=== PATIENT | female | born 1945 | race Caucasian/White ===

== ENCOUNTER 2024-05-05 13:54 | Inpatient (IN) ==
--- OUTSIDE RECORDS SUMMARY | 2024-05-05 13:59 | External Medical Summary | Summary of Care ---
Author Name Unknown Organization [facility] Address [address] [place] [address] Phone [phone] Care Team Providers Care Glass Processing Worker Name Role Phone Ian Rae MD Primary Care Provider [phone] Reason for Visit * Reason Onset Date Comments Referral 01/30/202401/29, 01/31 02/01 Encounter Details Date Type Department Care Team (Late st Contact Info) Description 01/30/2024 Telephone [facility] [address] [facility] [place] [address] Ian Rae MD [facility] [place] [place] [address] Referral (01/29, 01/31 02/01) Allergies Active Allergy Reactions Criticality Noted Date Comments Prednisone Nausea/vomiting,Rash 11/05/2015 documented as of this encounter (statuses as of 04/30/2024) Medications Medication Sig Dispensed Refills Start Date End Date Status EQL B-6 100 MG PO TABS 1 TABLET DAILY 03/14/2011 Active B-12 500 MCG PO TABS one pill each day 03/14/2011 Active VITAMIN C 250 MG PO TABS None Entered Active VITAMIN D 1000 UNIT PO CAPS None Entered Active Polyethylene Glycol 3350 17 GM/SCOOP Oral Powder Take 17 g by mouth as needed for Constipation. Dissolve one heaping tablespoon in 8 ounces of water or juice. 1 Bottle 2 06/15/2015 Active Multiple Vitamins-Minerals (CENTRUM SILVER) CHEW Take by mouth. Active Lidocaine 4 % External Patch Place 1 Patch topically on the skin daily. Active Aspirin 81 MG Oral Tablet Delayed Release Take 1 Tablet by mouth 2 times a day. Active Mirtazapine 7.5 MG Oral Tablet (Remeron) Take 1 Tablet by mouth at bedtime. 30 Tablet 3 08/09/2023 Active Magnesium 250 MG Oral Tablet Take 1 Tablet by mouth in the morning. Active Triamcinolone Acetonide 0.1 % External Cream (Aristocort)Indicat ions:Skin neoplasm Apply twice daily to area on buttocks for 2 weeks 30 g 1 10/25/2023 Active traMADol HCl 50 MG Oral Tablet (Ultram)Indications :Chronic pain syndrome Take 1 Tablet by mouth every 8 hours as needed for Pain, Severe. 90 Tablet 12/25/2023 Active documented as of this encounter (statuses as of 04/30/2024) Active Problems Problem Noted Date Diagnosed Date Chronic pain syndrome 10/25/2023 Coronary artery calcification 10/25/2023 Pulmonary emphysema 10/25/2023 High serum high density lipoprotein (HDL) 2022 Dyslipidemia, goal LDL below 70 10/25/2023 Lung nodule seen on imaging study 08/18/2023 Diverticulosis of large intestine without hemorr palmer 07/22/2023 HTN, goal below 130/80 04/18/2023 Stage 3a chronic kidney disease 10/05/2020 Overview: Per CKD protocol - Per CKD protocol Tired 01/30/2020 Underweight 09/20/2018 Overview: 09/20/2018 weight stable x 1.5 yr Macrocytosis without anemia 09/20/2018 Overview: MCV(fL) Ange Dt/Tm Resulted Value Status 01/30/20 4:06P 01/30/20 103.1* FINAL 11/12/18 1:22P 11/12/18 100.0* FINAL RETICULOCYTE, % 0.80 - 1.90 % 1.21 09/26/18 9:09A 10/31/18 99.5* FINAL 03/31/17 8:48A 03/31/17 101.2* FINAL 08/13/12 9:00A 08/13/12 100.5* FINAL Fusion of spine, lumbar region 03/27/2017 Breast cancer screening 03/27/2017 Overview: 09/20/2018 confirms 03/27/2017 Declines mammos again does self exams Loss of weight 09/08/2016 History of colon polyps 06/15/2015 Overview: 03/18/2021 reminder from GI Done 05/2015 repeat 1 yr Advance directive on file 06/15/2015 Overview: 03/27/2017 Discussed advance directive . Has living will on chart 1 POA Zay 2 POA daughter Mahogany Given forms for POA 06/15/2015 pt selects no POA for med Sciatica 08/24/2012 Overview: MRI 01/22/13: multi-level DJD/DDD w/ nerve impingement - advised Pain Clinic - pt to discuss w/ History of hypertension 01/19/2012 Overview: 07/06/2020 blood pressure check Initial BP reading was 130/62. After resting BP was BP 120/62 | Pulse 76 Patient denied headache, pressure in head, dizziness, lightheadedness, chest discomfort, focal neurological symptoms, change in vision, nose bleeds. Remains off BP meds. Stopped Metoprolol at last appt 01/30/20 Will continue off meds Smokes cigarettes 01/19/2012 Overview: 09/18/2020 still smokes 6 cigs/day Screening for thyroid disorder 01/19/2012 Overview: 09/20/2018 TSH Results: TSH(uIU/mL) Ange Dt/Tm Resulted Value Status 03/31/17 8:48A 03/31/17 3.39 FINAL 08/13/12 9:00A 08/13/12 2.79 FINAL Screening for lipoid disorders 01/19/2012 Overview: Lipid Panel Results: LIPID PANEL WITH DIRECT LDL IF TG ABOVE 400 MG/DL Ange Dt/Tm Resulted Value Status HOURS FASTING (hours) 08/13/12 9:00A 08/13/12 12 F TRIGLYCERIDES (mg/dL) 08/13/12 9:00A 08/13/12 91 F CHOLESTEROL (mg/dL) 08/13/12 9:00A 08/13/12 218* F HDL (mg/dL) 08/13/12 9:00A 08/13/12 84 F CHOL/HDL RATIO ( ) 08/13/12 9:00A 08/13/12 2.6 F LDL (CALCULATED) (mg/dL) 08/13/12 9:00A 08/13/12 116 F LDL DIRECT(REFLEX) (mg/dL) 08/13/12 9:00A 08/13/12 F Value: NOT APPLICABLE Special screening for malignant neoplasms, colon 01/19/2012 No vaccination-pt refuse 01/19/2012 Overview: 01/19/2012 promises to reconsider documented as of this encounter (statuses as of 04/30/2024) Resolved Problems Problem Noted Date Diagnosed Date Resolved Date Kidney disease, chronic, sta ge III (GFR 30-59 ml/min) 02/03/2020 10/08/2020 Overview: Per CKD protocol Benign paroxysmal vertigo 03/27/2017 Overview: 09/20/2018 Few times a year About 1 min caused typically by head movement Abdominal pain, right lower quadrant 06/15/2015 01/30/2020 documented as of this encounter (statuses as of 04/30/2024) Immunizations Name Administration Dates Next Due Pneumococcal Polysaccharide PPV23 (Pneumovax) 11/23/2015(Deferred: Patient Refused) Seasonal Influenza, Split, I IV3, With Preserve, Inj 11/23/2015(Deferred: Patient Refused) Varicella Zoster Vaccine (Adult) 11/23/2015(Defe rred: Patient Refused) documented as of this encounter Social History Tobacco Use Types Packs/Day Years Used Date Smoking Tobacco: Every Day Cigarettes 0.3 44.4 Started: 11/27/1979 Smokeless Tobacco: Never Comments:4-5 cigarettes/day Alcohol Use Standard Drinks/Week Comments No 0 (1 standard drink = 0.6 oz pur e alcohol) PHQ-2 Answer Date Recorded PHQ Adult Total Score 0 12/09/2022 Hunger Vital Sign Answer Date Recorded Within the past 12 months, y ou worried that your food would run out before you got the money to buy more. Never true 12/09/19 23 Within the past 12 months, t he food you bought just didn't last and you didn't have money to get more. Never true 12/09/2022 Sex and Gender Information Value Date Recorded Sex Assigned at Female 01/30/2020 3:08 PM EST Gender Identity Female 01/30/2020 3:08 PM EST Sexual Orientation Straight 01/30/2020 3: 08 PM EST Job Start Date Occupation Industry Not on file Not on file Not on file documented as of this encounter Miscellaneous Notes * Telephone Encounter - Amy Shearer LPN - 02/02/2024 4:01 PM EST Call placed to pt's home number no answer and after several rings the ringing just stops. * Telephone Encounter - Yesenia Kilgore LPN - 02/01/2024 12:40 PM EST Na pt #, no a/m available * Telephone Encounter - Yesenia Kilgore LPN - 01/30/2024 2:48 PM EST Na pt home #, no a/m; need to check with pt if referral is for audiology for hearing loss * Telephone Encounter - Zulay Jarvis PHARM Tech - 01/30/2024 2:30 PM EST Patient is requesting a referral for her hearing aid. Please fax the referral to [phone] Zulay Vaca Aperture Mask Etcher [facility] [address] [address] 01/30/2024 2:32 PM documented in this encounter Plan of Treatment Upcoming Encounters Date Type Department Care Team (Late st Contact Info) Description 05/06/2024 2:40 PM EDT Office Visit [facility] [address] [facility] [place] [address] Ian Rae MD 21 [facility] [place] [address] Scheduled Procedures Name Priority Associated Diagnoses Date/Ti me COLONOSCOPY FLEXIBLE PROXIMAL DIAGNOSTIC Recall History of colon polyps Health Maintenance Due Date Last Done Comments DISCUSS TOBACCO CESSATION (REFER TO SMARTSET #1594) 1945 DXA Scan 1945 Pneumococcal Vaccine: 65+ Years (1 of 2 - PCV) 1952 Alpha-1 Antitrypsin 1964 DTaP,Tdap,and Td Vaccines (1 - Tdap) 1965 Zoster Vaccines (1 of 2) 1996 COVID-19 Vaccine (1 - 2022-24 season) 2023 *COPD SEVERITY VERIFIED BY PFT 10/27/2023 Depression Screening 12/09/2023 12/09/2022 GFR 12/10/2023 06/09/2023, 12/29, 12/09/2022, Additional history exists Albumin/Creatinine Ratio 01/16/2024 01/16/2023, 10/27 CKD HGB USE SMARTSET 86247 06/09/202406/09, 06/09/2023, 12/09/2022, Additional history exists CKD PHOS USE SMARTSET 39006 06/09/2024 06/09/2023 O2 ASSESSMENT COMPLETED IN PAST YEAR FOR COPD 07/12/2024 07/12/2023 Influenza Vaccine (FLU shot) (Season Ended) 2024 Colonoscopy 05/19/2026 05/19/2023, 04/28, 06/20/2016, Additional history exists GARDASIL-HPV IMMUNIZATION SERIES Aged Out No longer eligible based on patient's age to complete this topic Hepatitis B Aged Out No longer eligi ble based on patient's age to complete this topic MENINGOCOCCAL (MENACTRA/MENVEO) Aged Out No longer eligible based on patient's age to complete this topic documented as of this encounter Medical Devices Not on filedocumented as of this encounter Care Teams Glass Processing Worker Relationship Specialty Start Date End Date Ian Rae MD 21 [facility] [address] [place] [id number] PCP - General Family Medicine 04/17/23 documented as of this encounter"
--- OUTSIDE RECORDS SUMMARY | 2024-05-05 13:59 | External Medical Summary | Summary of Care ---
Author Name Unknown Organization [facility] Address [address] [facility] [address] Phone [phone] Care Team Providers Care Photoengraver Apprentice Name Role Phone Ian Rae MD Primary Care Provider [phone] Reason for Visit * Reason Onset Date Comments Medication Refill 04/19/2024 Encounter Details Date Type Department Care Team (Late st Contact Info) Description 04/19/[address] [facility] [address] [facility] [place] [address] Ian R[facility] MD [facility] [place] [address] Chronic pain syndrome Allergies Active Allergy Reactions Criticality Noted Date Comments Prednisone Nausea/vomiting,Rash 11/05/2015 documented as of this encounter (statuses as of 04/19/2024) Medications Medication Sig Dispensed Refills Start Date [...] juice. 1 Bottle 2 06/15/2015 Active Multiple Vitamins-Mineral s (CENTRUM SILVER) CHEW Take by mouth. Active [...] Active Triamcinolone Acetonide 0.1 % External Cream (Aristocort)Yoon cations:Skin neoplasm Apply twice daily to area on buttocks for 2 weeks 30 g 1 10/25/2023 Active traMADol HCl 50 MG Oral Tablet (Ultram)Indicati ons:Chronic pain syndrome Take 1 Tablet by mouth every 8 hours as needed for Pain, Severe. 90 Tablet 12/25/2023 Active DULoxetine HCl 30 MG Oral Capsule Delayed Release Particles (Cymbalta)Indica tions:Chronic pain syndrome Take 1 Capsule by mouth in the morning. Do not cut, crush or chew. 30 Capsule 5 04/19/2024 Active DULoxetine HCl 30 MG Oral Capsule Delayed Release Particles (Cymbalta)Indica tions:Chronic pain syndrome Take 1 Capsule by mouth in the morning. Do not cut, crush or chew. 30 Capsule 5 10/25/2023 04/19/2024 Discontinue d(Refill) documented as of this encounter (statuses as of 04/19/2024) Active Problems Problem Noted Date Diagnosed Date [...] 0.80 - 1.90 % 1.21 09/26/18 9:09A 09/26/18 99.5* FINAL 03/31/17 8:48A 03/31/17 101.2* FINAL [...] as of this encounter (statuses as of 04/19/2024) Resolved Problems Problem Noted Date Diagnosed Date Resolved Date Kidney disease, chronic, sta ge III (GFR 30-59 ml/min) 02/03/2020 10/08/2020 Overview: Per CKD protocol Benign paroxysmal vertigo 03/27/2017 Overview: 09/20/2018 Few times a year About 1 min caused typically by head movement Abdominal pain, right lower quadrant 06/15/2015 01/30/2020 documented as of this encounter (statuses as of 04/19/2024) Immunizations Name Administration Dates Next Due Pneumococcal [...] encounter Miscellaneous Notes * Telephone Encounter - Rosemary Koroma CRNP - 04/19/2024 10:59 AM EDTSigned Prescriptions: Disp Refills DULoxetine HCl 30 MG Oral Capsule Delayed *30 Cap*5 Sig: Take 1 Capsule by mouth in the morning. Do not cut, crush or chew. Authorizing Provider: ROSEMARY KOROMA * Telephone Encounter - Brayden Pérez LPN - 04/19/2024 7:46 AM EDT Did you pend patient's preferred pharmacy and medication before forwarding?yes Pharmacy: [facility] Pending Prescriptions: Disp Refills DULoxetine HCl 30 MG Oral Capsule Delayed*30 Cap*5 Sig: Take 1 Capsule by mouth in the morning. Do not cut, crush or chew. Last Visit: 10/25/2023 (in office), Visit date not found (telemedicine) Next Visit: 05/06/2024 If no future appointments scheduled, and last appointment is greater than a year ago, please schedule patient for a follow-up appointment Last date the medication was ordered: 10/25/2023 Is this request for a controlled substance?No Urine Drug Screen:No results found for this or any previous visit. Patient Phone Numbers Labs: Lab Results Component Value Date/Time CREAT 0.9 06/09/2023 04:23 PM CREAT 1.1 (H) 01/30/2020 04:06 PM POTASSIUM 4.4 06/09/2023 04:23 PM POTASSIUM 4.5 01/30/2020 04:06 PM TSH 2.18 12/09/2022 12:58 PM TSH 2.01 01/30/2020 04:06 PM LDLCALC 119 09/26/2018 09:09 AM LDLDIRECT NOT APPLICABLE 09/26/2018 09:09 AM ALT 22 06/09/2023 04:23 PM ALT 19 01/30/2020 04:06 PM documented in this encounter Plan of Treatment Upcoming Encounters Date Type Department Care Team (Late st Contact Info) Description 05/06/2024 2:40 PM EDT Office Visit [address] [place] [address] Ian Rae MD 21 [facility] [place] [id number] Scheduled Procedures Name Priority Associated Diagnoses Date/Ti me COLONOSCOPY FLEXIBLE PROXIMAL DIAGNOSTIC Recall History of colon polyps Health Maintenance Due Date Last Done Comments DISCUSS TOBACCO CESSATION (REFER TO SMARTSET #9232) 1945 DXA Scan 1945 Pneumococcal Vaccine: 65+ Years (1 of 2 - PCV) 1952 Alpha-1 Antitrypsin 1964 DTaP,Tdap,and Td Vaccines (1 - Tdap) 1965 Zoster Vaccines (1 of 2) 1996 COVID-19 Vaccine (1 - 2022- season) 2023 *COPD SEVERITY VERIFIED BY PFT 10/27/2023 Depression Screening 12/09/2023 12/09/2022 GFR 12/10/2023 06/09/2023, 12/29, 12/09/2022, Additional history exists Albumin/Creatinine Ratio 01/16/2024 01/16/2023, 10/27 CKD HGB USE SMARTSET 10364 06/09/202406/09, 06/09/2023, 12/09/2022, Additional history exists CKD PHOS USE SMARTSET 27506 06/09/2024 06/09/2023 O2 ASSESSMENT COMPLETED IN PAST [...] Not on filedocumented as of this encounter Visit Diagnoses Diagnosis Chronic pain syndrome documented in this encounter Care Teams Photoengraver Apprentice Relationship Specialty Start Date End Date Ian Rae MD [address] [place] [id number] PCP - General Family Medicine 04/17/23 documented as of this encounter"
--- OUTSIDE RECORDS SUMMARY | 2024-05-05 13:59 | External Medical Summary | Continuity of Care Document ---
Author Name Unknown Organization [facility] [address] [place] [address] [place] [phone] Care Team Providers Care Meat Loiner Name Role Phone Ian Rae Primary Care Physician [phone] [id number] Date(s): 04/25/24 - 04/25/24 [facility] [address] [facility] Pain Medicine [address], [address], [address] [place] [address] [phone] Encounter Diagnosis Post laminectomy syndrome(Discharge Diagnosis) - 04/25/24 Discharge Disposition: Home or Self Care Attending Physician: MD Eason Bunty J Referring Physician: MD Skip, Kyrie Mcrae Allergies, Adverse Reactions, Alerts Substance Criticality Severity Reaction Reaction Severity Status predniSONE 1 Vomiting Active 1hives Assessment and Plan Extracted from: Title:TeleHealth Visit Note Author:MD Yumi, Cullen Squires Date:04/25/24 Post laminectomy syndrome We discussed spinal cord stimulator,including the process ofa thoracic spine MRI as well as psychological evaluation if this is somethingthat she would like to pursue. I spoke with both the patient and her aboutthispotential therapeutic option. At this point, she is amenable to trying physical therapy. She has a specific facility in mindand will contact our office with the information. I have placed an order for this physical therapyreferraland it may be faxed to the facility of her choice once we havethe contact information for that facility. Additionally, she does have a sclerotic lesion in theiliac wing on the left sidewhich seems to correspond withwhere her pain is most severe. I am ordering a CT SPECT scan as the source of her pain isunclear. I am also providing a prescription for Celebrex 50 mg p.o. twice daily. Medications CeleBREX 50 mg oral capsule Start: 04/25/24 11:48:00 AM EDT, 1 cap, PO, bid, Disp# 60 cap, Refills: 2, Pharmacy: [facility] Start Date: 04/25/24 Status: Ordered DULoxetine 30 mg oral delayed release capsule Start: 11/16/23 3:32:00 PM EST, 30 each, Take 1 Capsule by mouth in the morning. Do not cut, crush or chew. Start Date: 11/16/23 Status: Ordered gabapentin 100 mg oral capsule Start: 02/19/24 9:49:00 AM EDT, 1 cap, PO, tid, Disp# 90 cap, Refills: 1, start nightly for three days, then twice a day for three days, then three times per day., Pharmacy: [facility] Start Date: 02/19/24 Stop Date: 04/19/24 Status: Ordered lidocaine 5% topical ointment Start: 11/11/22 3:01:00 PM EST, 1 appl, topical, tid, Disp# 50 g, apply with gloves to painful area. stop using if you experience a metallic taste or ringing in your ears., Indication: pain, Pharmacy: [facility] Start Date: 11/11/22 Stop Date: 12/11/22 Status: Ordered Lidocare Pain Relief Patch 4% topical film Start: 11/16/23 3:31:00 PM EST Start Date: 11/16/23 Status: Ordered lisinopril 10 mg oral tablet Start: 12/20/22 1:55:00 PM EST, 1 tab, PO, Daily Start Date: 12/20/22 Status: Ordered lisinopril 20 mg oral tablet Start: 01/02/23 10:57:00 AM EST, 20 mg =, PO, 12 Refill(s), Take 1 Tablet by mouth in the morning. Start Date: 01/02/23 Status: Ordered metoprolol succinate 25 mg oral tablet, extended release Start: 11/16/23 3:30:00 PM EST, 1 tab, PO, Daily Start Date: 11/16/23 Status: Ordered polyethylene glycol 3350 Start: 01/02/23 10:57:00 AM EST, 17 g =, PO, 3 Refill(s), Take 17 g by mouth as needed for Constipation. Dissolve one heaping tablespoon in 8 ounces of water or juice. Start Date: 01/02/23 Status: Ordered potassium iodide 65 mg oral tablet Start: 04/01/13 11:33:00 AM EDT, 2 tab, PO, Daily Start Date: 04/01/13 Status: Ordered traMADol 50 mg oral tablet Start: 11/16/23 3:30:00 PM EST, 1 tab, PO, q12h, PRN: as needed for pain Start Date: 11/16/23 Status: Ordered Vitamin B-12 100 mcg oral tablet Start: 04/01/13 11:32:00 AM EDT, 1 tab, PO, Daily Start Date: 04/01/13 Status: Ordered Vitamin B-50 oral tablet Start: 04/01/13 11:32:00 AM EDT, 1 tab, PO, Daily Start Date: 04/01/13 Status: Ordered Vitamin B12 1000 mcg oral tablet Start: 11/16/23 3:29:00 PM EST, 1 tab, PO, Daily Start Date: 11/16/23 Status: Ordered Vitamin B6 100 mg oral tablet Start: 11/16/23 3:29:00 PM EST, 1 tab, PO, Daily Start Date: 11/16/23 Status: Ordered Vitamin D3 2000 intl units oral tablet Start: 04/01/13 11:33:00 AM EDT, 1 tab, PO, Daily Start Date: 04/01/13 Status: Ordered vitamin E 400 intl units oral capsule Start: 04/01/13 11:33:00 AM EDT, 1 cap, PO, Daily Start Date: 04/01/13 Status: Ordered Problem List Condition Confirmation Course Effective Dates Status Health St atus Informant Back pain Confirmed Active Benign Essential Hypertension Confirmed Active Chronic arthritis Confirmed Active Depression Confirmed Active S/P laminectomy with spinal fusion Confirmed Active Hip pain Confirmed Active Tobacco abuse Confirmed Active Diagnosis Diagnosis Type Effective Dates Health Status Clinical Service Informant Post laminectomy syndrome Discharge Diagnosis 04/25/24 Non-Specified Procedures Procedure Date Related Diagnosis Body Site Status Epidural steroid injection 1 03/29/24 Completed Injection 2 12/20/22 Completed Cataract surgery Complete d L5 posterior spinal fusion w ith instrumentation, L2-3, L3-4, L4-5 Laminectomy with local autograft infuse and allograft 3 Completed Neck Completed 1caudal SUMMER 2TPI Social History Social History Type Response Smoking Status Current every day li ght smoker Sex Female Chronic Pain Outpt Note * MD Yumi, Lyle Squires: PERFORM Event Display: Chronic Pain Outpt Note Authored Date: [id number] TeleHealth Visit Note I have confirmed the patients name and date of . The patient has consented to this service,and I have advised the patient that this is a billable visit for which they may be subject to a copay. The patient initiated this visit after they were informed of the availability of TeleHealth for this medically necessary visit. I am located at my office. The patient is located at home. This visit was conducted via telephone, and was not related to a visit or procedure that occurred within the past 7 days, due to no internet connection availability. TOTAL TIME SPENT COMMUNICATING WITH THE PATIENT, IN MINUTES: Chief Complaint Low back pain History of Present Illness This is a [id number] with a history of L2-[id number] laminectomyand fusion with posterior spinal instrumentationwith local autograftinfuse and allograft. Shehaspersistent left-sided low back painover theiliac crest. She has undergone multiplepole caudal epidural steroidinjections without much reliefin her pain. Shehad seen Dr. Casiano of orthopedic spine surgery,but per her report, she is not a candidate foradditional surgical procedures at this time. Previously, we discussed spinal cord stimulationas well. She has not recentlyhad any physical therapy. Meloxicam was not helpfulin the past. She is taking gabapentin 100 mgp.o. 3 times daily. She also takes tramadol 50 mg1 tab p.o. every 12 as needed. Review of Systems As per HPI. Denies any bowel or bladder incontinence. She states she has some loose stools. Physical Exam This is a telephonic visit and so a physical examination could not be completed. Assessment/Plan Post laminectomy syndrome We discussed spinal cord stimulator,including the process ofa thoracic spine MRI as well as psychological evaluation if this is somethingthat she would like to pursue. I spoke with both the patient and her aboutthispotential therapeutic option. At this point, she is amenable to trying physical therapy. She has a specific facility in mindand will contact our office with the information. I have placed an order for this physical therapyreferraland it may be faxed tothe facility of her choice once we havethe contact information for that facility. Additionally,she does have a sclerotic lesion in theiliac wing on the left sidewhich seems to correspond withwhere her pain is most severe. I am ordering a CT SPECT scan as the source of her pain isunclear. I am also providing a prescription for Celebrex 50 mg p.o. twice daily. Problem List/Past Medical History Ongoing Back pain Benign Essential Hypertension Chronic arthritis Depression Hip pain S/P laminectomy with spinal fusion Tobacco abuse Procedure/Surgical History Epidural steroid injection| Service Date: 03/29/2024Injection| Service Date: 12/20/2022L5 posterior spinal fusion with instrumentation, L2-3, L3-4, L4-5 Laminectomy with local autograft infuse and allograftCataract surgeryNeck Medications celecoxib(CeleBREX 50 mg oral capsule), 50 mg= 1 cap, PO, bid, 2 refills cholecalciferol(Vitamin D3 2000 intl units oral tablet), 2000 Int_Unit= 1 tab, PO, Daily cyanocobalamin(Vitamin B12 1000 mcg oral tablet), 1000 mcg= 1 tab, PO, Daily cyanocobalamin(Vitamin B-12 100 mcg oral tablet), 100 mcg= 1 tab, PO, Daily DULoxetine(DULoxetine 30 mg oral delayed release capsule) gabapentin(gabapentin 100 mg oral capsule), 100 mg= 1 cap, PO, tid, 1 refills lidocaine topical(Lidocare Pain Relief Patch 4% topical film) lidocaine topical(lidocaine 5% topical ointment), 1 appl, topical, tid lisinopril(lisinopril 20 mg oral tablet), 20 mg, PO lisinopril(lisinopril 10 mg oral tablet), 10 mg= 1 tab, PO, Daily metoprolol(metoprolol succinate 25 mg oral tablet, extended release), 25 mg= 1 tab, PO, Daily multivitamin(Vitamin B-50 oral tablet), 1 tab, PO, Daily polyethylene glycol 3350, 17 g, PO potassium iodide(potassium iodide 65 mg oral tablet), 130 mg= 2 tab, PO, Daily pyridoxine(Vitamin B6 100 mg oral tablet), 100 mg= 1 tab, PO, Daily traMADol(traMADol 50 mg oral tablet), 50 mg= 1 tab, PO, q12h, PRN vitamin E(vitamin E 400 intl units oral capsule), 400 Int_Unit= 1 cap, PO, Daily Allergies predniSONEVomiting Social History Smoking Status Current every day light smoker Recommendations Health Maintenance Pending(in the next year) OverDue Adult Influenza Vaccine due05/26/23and every 1year Body Mass Index due11/12/23and every 366day Due Adult COVID-19 Vaccination due04/25/24Unknown Frequency Adult Social Determinants of Health Screening due04/25/24Unknown Frequency Adult Tdap/Td Vaccine due04/25/24Unknown Frequency Hepatitis C Screening due04/25/24One-time only Lipid Screening due04/25/24Unknown Frequency Medicare Annual Wellness Visit due04/25/24and every 1year Osteoporosis Screening due04/25/24One-time only Pneumococcal Vaccine Older Adults due04/25/24One-time only Shingles Vaccine due04/25/24One-time only Satisfied(in the past 1 year) There are no satisfied recommendations within the defined date range Electronic Signature on File CC: Ian Rae MD [facility] [id number] * Electronically Reviewed/Signed by: Lyle Eason MD, TOBIAS, FASA Author Signature Dt/Tm:04/25/2024 11:54 AM Data Entry Representative Skip Load Driver, Pain Medicine Fellowship Department of Anesthesiology & Perioperative Medicine [facility] Patient Care team information Care Team Personnel Name: KERI Casanova Dean E Position: Nurse Pract - Orthopaedic Surg Member Role: Lifetime Relationship Address: Address: [address] [address] [place] Name: MD Rae Kiran R Position: Referring DIRECT Member Role: Primary Care Provider Address: Address: [place] [address] [place] Name: MD Ely, Jaime S Position: Physician - Hem/Onc Member Role: Lifetime Relationship Address: Address: [address] [place] [address] [place] Care Team Related Persons Name: LORIN OBRIEN Address: home [address] [facility] [place] [phone]"
--- OUTSIDE RECORDS SUMMARY | 2024-05-05 13:59 | External Medical Summary | Continuity of Care Document ---
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 Do not cut, crush orchew. Start Date: 11/16/23 Status: Ordered gabapentin 100 mg oral capsule Start: 02/19/24 9:49:00 EDT, 1 cap, PO, tid, Disp# 90 cap, Refills: 1, start nightly for three days, then twice a day for three days, then three times per day., Pharmacy: [facility] Start Date: 02/19/24 Stop Date: 04/19/24 Status: Ordered lidocaine 5% topical ointment Start: 11/11/22 15:01:00 EST, 1 appl, topical, tid, Disp# 50 g, apply with gloves to painful area. stop using if you experience a metallic taste or ringing in your ears., Indication: pain, Pharmacy: [facility] Start Date: 11/11/22 Stop Date: 12/11/22 Status: Ordered Lidocare Pain Relief Patch 4% topical film Start: 11/16/23 15:31:00 EST Start Date: 11/16/23 Status: Ordered lisinopril 10 mg oral tablet Start: 12/20/22 13:55:00 EST, 1 tab, PO, Daily Start Date: 12/20/22 Status: Ordered lisinopril 20 mg oral tablet Start: 01/02/23 10:57:00 EST, 20 mg =, PO, 12 Refill(s), Take 1 Tablet by mouth in the morning. Start Date: 01/02/23 Status: Ordered metoprolol succinate 25 mg oral tablet, extended release Start: 11/16/23 15:30:00 EST, 1 tab, PO, Daily Start Date: 11/16/23 Status: Ordered polyethylene glycol 3350 Start: 01/02/23 10:57:00 EST, 17 g =, PO, 3 Refill(s), Take 17 g by mouth as needed for Constipation. Dissolve one heaping tablespoon in 8 ounces of water or juice. Start Date: 01/02/23 Status: Ordered potassium iodide 65 mg oral tablet Start: 04/01/13 11:33:00, 2 tab, PO, Daily Start Date: 04/01/13 Status: Ordered traMADol 50 mg oral tablet Start: 11/16/23 15:30:00 EST, 1 tab, PO, q12h, PRN: as needed for pain Start Date: 11/16/23 Status: Ordered Vitamin B-12 100 mcg oral tablet Start: 04/01/13 11:32:00, 1 tab, PO, Daily Start Date: 04/01/13 Status: Ordered Vitamin B-50 oral tablet Start: 04/01/13 11:32:00, 1 tab, PO, Daily Start Date: 04/01/13 Status: Ordered Vitamin B12 1000 mcg oral tablet Start: 11/16/23 15:29:00 EST, 1 tab, PO, Daily Start Date: 11/16/23 Status: Ordered Vitamin B6 100 mg oral tablet Start: 11/16/23 15:29:00 EST, 1 tab, PO, Daily Start Date: 11/16/23 Status: Ordered Vitamin D3 2000 intl units oral tablet Start: 04/01/13 11:33:00, 1 tab, PO, Daily Start Date: 04/01/13 Status: Ordered vitamin E 400 intl units oral capsule Start: 04/01/13 11:33:00, 1 cap, PO, Daily Start Date: 04/01/13 Status: Ordered Mental Status 03/29/24 Barriers to Learning one year None evide nt Mandatory Health Literacy Documentation Yes Health Literacy Communication Barriers N ever Primary Language Yi Problem List Condition Confirmation Course Effective Dates Status Health St atus Informant Back pain Confirmed Active Benign Essential Hypertension Confirmed Active Chronic arthritis Confirmed Active Depression Confirmed Active S/P laminectomy with spinal fusion Confirmed Active Hip pain Confirmed Active Tobacco abuse Confirmed Active Diagnosis Diagnosis Type Effective Dates Health Status Clinical Service Informant Lumbosacral radiculopathy Discharge Diagnosis 03/29/24 Failed back surgical syndrome Discharge Diagnosis 03/29/24 Procedures Procedure Date Related Diagnosis Body Site Status Epidural steroid injection 1 03/29/24 Completed Injection 2 12/20/22 Completed Cataract surgery Complete d L5 posterior spinal fusion w ith instrumentation, L2-3, L3-4, L4-5 Laminectomy with local autograft infuse and allograft 3 Completed Neck Completed 1caudal SUMMER 2TPI 37 Vital Signs Most recent to oldest [Reference Range]: 1 Temperature [36.5-37.9 DegC] 37.2 DegC (03/29/24 2:13 PM) Heart Rate 81 bpm (03/29/24 2:13 PM) Respiratory Rate 12 br/min (03/29/24 2:13 PM) Blood Pressure 150/91mmHg (03/29/24 2:13 PM) Cuff Pulse Pressure 59 mmHg (03/29/24 2:13 PM) Social History Social History Type Response Smoking Status Current every day [facility] smoker Sex Female .Outpt Proc * MD Yumi, Lyle Squires: PERFORM Event Display: .Outpt Proc Authored Date: [id number] OUTPATIENT PROCEDURE Name: TESSA WALLIS Patient Number: [id number] : 1945 Date of Service: 03/29/2024 Caudal Epidural Steroid Injection with Catheter ATTENDING: Lyle Eason MD MAINTENANCE PERSON: Kentrell Nuñez MD, Ph.D. PREOPERATIVE DIAGNOSIS: Lumbosacral radiculopathy POSTOPERATIVE DIAGNOSIS: Lumbosacral radiculopathy PROCEDURE PERFORMED: Caudal epidural injection under fluoroscopic guidance. ANESTHESIA: Local Anesthesia with 1% Lidocaine MONITORS: Automatic blood pressure cuff, pulse oximetry INDICATIONS: We had the pleasure of seeing Tessa Wallis in the pain management clinic at [facility] today. The patient has a history of lumbosacral radiculopathy. The patient is here today for a caudal epidural steroid injection. Medication List Active Medications Ordered cholecalciferol: 1 tab, PO, Daily. cyanocobalamin: 1 tab, PO, Daily. cyanocobalamin: 1 tab, PO, Daily. DULoxetine: 30 each, Take 1 Capsule by mouth in the morning. Do not cut, crush or chew.. gabapentin: 1 cap, PO, tid, for 30 day, start nightly for three days, then twice a day for three days, then three times per day., 90 cap, 1 Refill(s). lidocaine topical: 1 appl, topical, tid, for 30 day, apply with gloves to painful area. stop using if you experience a metallic taste or ringing in your ears., 50 g. lidocaine topical: Start: 11/16/23 15:31:00 EST. lisinopril: 1 tab, PO, Daily. lisinopril: 20 mg, PO, 12 Refill(s), Take 1 Tablet by mouth in the morning.. metoprolol: 1 tab, PO, Daily. multivitamin: 1 tab, PO, Daily. polyethylene glycol 3350: 17 g, PO, 3 Refill(s), Take 17 g by mouth as needed for Constipation. Dissolve one heaping tablespoon in 8 ounces of water or juice.. potassium iodide: 2 tab, PO, Daily. pyridoxine: 1 tab, PO, Daily. traMADol: 1 tab, PO, q12h, PRN: as needed for pain. vitamin E: 1 cap, PO, Daily. Medications Inactivated in the Last 72 Hours No medications found. Allergies (1) Active Reaction predniSONE Vomiting REVIEW OF SYSTEMS: Negative for fever, chills, chest pain, SOB, bleeding abnormalities, nausea, vomiting, diarrhea, worsening edema, or new rashes. FOCUSED PHYSICAL EXAMINATION: The patient is awake, alert, oriented, and is in no acute distress. Vital signs are stable. The patient is afebrile. The rest of the PE is essentially unchanged from thepatients recent visit to our office. We explained the procedure to the patient, including the risks, benefits and alternatives to the procedure. The patient verbalized understanding and was willing to proceed. PROCEDURE IN DETAIL: An informed consent was obtained. The patient was taken to the procedure room and was positively identified by the staff and the attending physician. The patient was positioned prone on the procedure bed. Vital signs were monitored as above and remained stable throughout the procedure. The skin over the sacral hiatus was prepped and draped in a standard sterile fashion using chlorhexidine. A surgical pause (time-out) was performed and was agreed upon by the members of the team. Fluoroscopy was used to identify the sacral hiatus. The skin and subcutaneous tissues were anesthetized using 1% lidocaine and 25-gauge 1-1/2 inch needle. An 18-gauge 5 inch epidural needle was inserted and advanced into the sacral hiatus under fluoroscopic guidance. After the needle passed through the sacrococcygeal ligament, the hub of the needle was lowered and the needle was advanced until it was thought to be in the caudal epidural space. Unfotunately, contrast injection revealed the needle tip to be outside the caudal epidural space. The needle was withdrawn slightly, the redirectedinto the caudal epidural space. Omnipque 240 mg/mL was injected, but visualization was challenging due to patient body habitus and the decision was made to introduce an epidural catheter. A 21-gauge,12-inch catheter was then inserted and advanced to the S1/S2 level. After negative aspiration for blood and CSF, radiopaque dye, 240 mg/mL, was slowly injected. This demonstrated excellent spread in the epidural space with some spread to the nerve roots. After additional negative aspiration, 10 mg of dexamethasone mixed with 1 mL of 1% lidocaine and 8 mL of PF NS were injected into the epidural space. All needles were withdrawn. The patient tolerated the procedure well. COMPLICATIONS: None. DISPOSITION: 1. The patient will be discharged home when discharge criteria are met. 2. The patient will return to the pain clinic in 2 months or sooner if needed. 3. The patient was provided contact information to call regarding any concerning symptoms or questions. I was present for and supervised the entire procedure. - Lyle Eason MD Electronic Signature on File Electronically Reviewed/Signed by: Lyle Eason MD, TOBIAS, JEOVANY Author Signature Dt/Tm:03/29/2024 03:27 PM Upholsterer Outside Rehabilitation Tech, Pain Medicine Fellowship Department of Anesthesiology & Perioperative Medicine [facility] Patient Care team information Care Team Personnel Name: KERI Casanova, Jose E Position: Nurse Pract - Orthopaedic Surg Member Role: Lifetime Relationship Address: Address: [address] [place] [phone] [place] Name: MD Butch, Ian Toro Position: Referring DIRECT Member Role: Primary Care Provider Address: Address: [address] [place] [address] [place] Name: MD Ely, Jaime S Position: Physician - Hem/Onc Member Role: Lifetime Relationship Address: Address: [address] [place] [address] Care Team Related Persons Name: LORIN OBRIEN Address: home [address] [place] [phone]
--- OUTSIDE RECORDS SUMMARY | 2024-05-05 14:00 | External Medical Summary | Summary of Care ---
Author Name Unknown Organization [facility] Address [address] [place] [address] Phone [phone] Care Team Providers Care Composite Layup Worker Name Role Phone Ian Rae MD Primary Care Provider [phone] [phone] Reason for Visit * Reason Onset Date Comments Health Maintenance 12/15/2023 Encounter Details Date Type Department Care Team (Late st Contact Info) Description 12/15/2023 Telephone [facility] [place] [address] Ian Rae MD [facility] [place] [address] Health Maintenance Allergies Active Allergy Reactions Criticality Noted Date Comments Prednisone Nausea/vomiting,Rash 11/05/2015 documented as of this encounter (statuses as of 12/15/2023) Medications Medication Sig Dispensed Refills Start Date End Date Status EQL B-6 100 MG PO TABS 1 TABLET DAILY 0 03/14/2011 Active B-12 500 MCG PO TABS one pill each day 0 03/14/2011 Active VITAMIN C 250 MG PO TABS None Entered 0 Active VITAMIN D 1000 UNIT PO CAPS None Entered 0 Active Polyethylene Glycol 3350 17 GM/SCOOP Oral Powder Take 17 g by mouth as needed for Constipation. Dissolve one heaping tablespoon in 8 ounces of water or juice. 1 Bottle 2 06/15/2015 Active Multiple Vitamins-Minerals (CENTRUM SILVER) CHEW Take by mouth. 0 Active Lidocaine 4 % External Patch Place 1 Patch topically on the skin daily. 0 Active Aspirin 81 MG Oral Tablet Delayed Release Take 1 Tablet by mouth 2 times a day. 0 Active Mirtazapine 7.5 MG Oral Tablet (Remeron) Take 1 Tablet by mouth at bedtime. 30 Tablet 3 08/09/2023 Active Magnesium 250 MG Oral Tablet Take 1 Tablet by mouth in the morning. 0 Active Triamcinolone Acetonide 0.1 % External Cream (Aristocort)Indicat ions:Skin neoplasm Apply twice daily to area on buttocks for 2 weeks 30 g 1 10/25/2023 Active DULoxetine HCl 30 MG Oral Capsule Delayed Release Particles (Cymbalta)Indicatio ns:Chronic pain syndrome Take 1 Capsule by mouth in the morning. Do not cut, crush or chew. 30 Capsule 5 10/25/2023 Active traMADol HCl 50 MG Oral Tablet (Ultram)Indications :Chronic pain syndrome Take 1 Tablet by mouth every 12 hours as needed for Pain, Severe. 15 Tablet 0 12/01/2023 Active documented as of this encounter (statuses as of 12/15/2023) Active Problems Problem Noted Date Diagnosed Date [...] as of this encounter (statuses as of 12/15/2023) Resolved Problems Problem Noted Date Diagnosed Date Resolved Date Kidney disease, chronic, sta ge III (GFR 30-59 ml/min) 02/03/2020 10/08/2020 Overview: Per CKD protocol Benign paroxysmal vertigo 03/27/2017 Overview: 09/20/2018 Few times a year About 1 min caused typically by head movement Abdominal pain, right lower quadrant 06/15/2015 01/30/2020 documented as of this encounter (statuses as of 12/15/2023) Immunizations Name Administration Dates Next Due Pneumococcal Polysaccharide PPV23 (Pneumovax) 11/23/2015(Deferred: Patient Refused) Seasonal Influenza, Split, I IV3, With Preserve, Inj 11/23/2015(Deferred: Patient Refused) Varicella Zoster Vaccine (Adult) 11/23/2015(Defe rred: Patient Refused) documented as of this encounter Social History Tobacco Use Types Packs/Day Years Used Date Smoking Tobacco: Every Day Cigarettes 0.3 38 Started: 11/27/1979 Smokeless Tobacco: Never Comments:4-5 cigarettes/day [...] encounter Miscellaneous Notes * Telephone Encounter - Erica Brian LPN - 12/15/2023 2:16 PM EST Care Gaps Comprehensive Care Outreach Last Office/Telemedicine Visit: 10/25/2023 (in office), Visit date not found (telemedicine) Next Office Visit: 05/06/2024 Hemoglobin AIC Results: No results found for: "HEMOGLOBIN A1C" Reviewed Health Maintenance below: Health Maintenance Topic Date Due DXA Scan Never done Zoster Vaccines (1 of 2) Never done Influenza Vaccine (FLU shot) (1) Never done *COPD SEVERITY VERIFIED BY PFT Never done GFR 12/10/2023 Albumin/Creatinine Ratio 01/16/2024 CKD HGB USE SMARTSET 79561 06/09/2024 CKD PHOS USE SMARTSET 47442 06/09/2024 Care Gap Outreach Action Taken: Spoke to patient Declined all other HM/AWV documented in this encounter Plan of Treatment Upcoming Encounters Date Type Department Care Team (Late st Contact Info) Description 05/06/2024 2:40 PM EDT Office Visit [facility] [address] [address] Ian Rae MD [address] [id number] Scheduled Procedures Name Priority Associated Diagnoses Date/Ti me COLONOSCOPY FLEXIBLE PROXIMAL DIAGNOSTIC Recall History of colon polyps Health Maintenance Due Date Last Done Comments DISCUSS TOBACCO CESSATION (REFER TO SMARTSET #7105) 1945 DXA Scan 1945 COVID-19 Vaccine (#1) 06/23/1946 Pneumococcal Vaccine: 65+ Years (1 - PCV) 1952 Alpha-1 Antitrypsin 1964 DTaP,Tdap,and Td Vaccines (1 - Tdap) 1965 Zoster Vaccines (1 of 2) 1996 Influenza Vaccine (FLU shot) (#1) 2023 *COPD SEVERITY VERIFIED BY PFT 10/27/2023 Depression Screening 12/09/2023 12/09/2022 GFR 12/10/2023 06/09/2023, 12/29, 12/09/2022, Additional history exists Albumin/Creatinine Ratio 01/16/2024 01/16/2023, 10/27 CKD HGB USE SMARTSET 84396 06/09/202406/09, 06/09/2023, 12/09/2022, Additional history exists CKD PHOS USE SMARTSET 97819 06/09/2024 06/09/2023 O2 ASSESSMENT COMPLETED IN PAST YEAR FOR COPD 07/12/2024 07/12/2023 COLONOSCOPY-EVERY 3 YRS AGES 18-100 05/19/2026 05/19/2023, 05/19/2023, 06/20/2016, Additional history exists GARDASIL-HPV IMMUNIZATION SERIES [...] filedocumented as of this encounter Care Teams Composite Layup Worker Relationship Specialty Start Date End Date Ian Rae MD [address] [place] [phone] PCP - General Family Medicine 04/17/23 documented as of this encounter
--- OUTSIDE RECORDS SUMMARY | 2024-05-05 14:00 | External Medical Summary | Continuity of Care Document ---
Author Name Unknown Organization [facility] [address] [place] [address] [place] [phone] Care Team Providers Care Bench Assembler Name Role Phone Ian Rae Primary Care Physician [phone] Encounter [facility] [id number] Date(s): 02/15/24 - 02/15/24 [facility] [address] [facility] Pain Medicine [address], [address], [address] [place] [address] [phone] Encounter Diagnosis Lumbar radiculopathy(Discharge Diagnosis) - 02/15/24 Postlaminectomy syndrome, lumbar(Discharge Diagnosis) - 02/15/24 Discharge Disposition: Home or Self Care Attending Physician: MD Yumi, Lyle Squires Referring Physician: MD Skip, Kyrie Mcrea Allergies, Adverse Reactions, Alerts Substance Reaction Severity Status predniSONE Vomiting Active Medications DULoxetine 30 mg oral delayed release capsule Start: 11/16/23 15:32:00 EST, 30 each, Take 1 Capsule by mouth in the morning. Do not cut, crush orchew. Start Date: 11/16/23 Status: Ordered lidocaine 5% topical ointment Start: 11/11/22 15:01:00 EST, 1 appl, topical, tid, Disp# 50 g, apply with gloves to painful area. stop using if you experience a metallic taste or ringing in your ears., Indication: pain, Pharmacy: [facility] Start Date: 11/11/22 Stop Date: 12/11/22 Status: [...] Effective Dates Health Status Clinical Service Informant Postlaminectomy syndrome, lumbar Discharge Diagnosis 02/15/24 Non-Specified Lumbar radiculopathy Discharge Diagnosis 02/15/24 Non-Specified Procedures Procedure Date Related Diagnosis Body Site Status Injection 1 12/20/22 Completed Cataract surgery Complete d L5 posterior spinal fusion w ith instrumentation, L2-3, L3-4, L4-5 Laminectomy with local autograft infuse and allograft 2 Completed Neck Completed 1TPI Social History Social History Type Response Smoking Status Current every day li ght smoker Sex Female Patient Care team information Care Team Personnel Name: EKRI Casanova, Jose Guy Position: Nurse Pract - Orthopaedic Surg Member Role: Lifetime Relationship Address: Address: [address] [place] [address] [place] Name: MD Butch, Ian Toro Position: Referring DIRECT Member Role: Primary Care Provider Address: Address: [address] [place] [address] [place] Name: MD Ely, Jaime Navarro Position: Physician - Hem/Onc Member Role: Lifetime Relationship Address: Address: [address] [place] [address] [place] Care Team Related Persons Name: LORIN OBRIEN Address: home [address] [place], [place] [id number]
--- OUTSIDE RECORDS SUMMARY | 2024-05-05 14:00 | External Medical Summary | Summary of Care ---
Author Name Unknown Organization [facility] Address [address] [facility] [place] [address] Phone [phone] Care Team Providers Care Credit Counselor Name Role Phone Ilsa Rae MD Primary Care Provider [phone] Reason for Referral * Medication Prior Authorization - Closed Specialty Diagnoses / Procedures Referred By Contcharity t Referred To Contact Diagnoses Chronic pain syndrome Ilsa Rae MD [address] [facility] [place] [address] Referral ID Status Reason Start Date Expiration Date Visits Re quested Visits Authorized [id number] Closed 999 999 Reason for Visit * Reason Onset Date Comments Med Request 12/01/202312/04, 12/06, 12/11 Encounter Details Date Type Department Care Team (Late st Contact Info) Description 12/01/[address] [place] [address] Ilsa Rae MD [facility] [place] [address] Med Request (12/04, 12/06, 12/11) Allergies Active Allergy Reactions Criticality Noted Date Comments Prednisone Nausea/vomiting,Rash 11/05/2015 documented as of this encounter (statuses as of 12/11/2023) Medications Medication Sig Dispensed Refills Start Date [...] as of this encounter (statuses as of 12/11/2023) Active Problems Problem Noted Date Diagnosed Date [...] as of this encounter (statuses as of 12/11/2023) Resolved Problems Problem Noted Date Diagnosed Date Resolved Date Kidney disease, chronic, sta ge III (GFR 30-59 ml/min) 02/03/2020 10/08/2020 Overview: Per CKD protocol Benign paroxysmal vertigo 03/27/2017 Overview: 09/20/2018 Few times a year About 1 min caused typically by head movement Abdominal pain, right lower quadrant 06/15/2015 01/30/2020 documented as of this encounter (statuses as of 12/11/2023) Immunizations Name Administration Dates Next Due Pneumococcal [...] encounter Miscellaneous Notes * Telephone Encounter - Minnie Currie MED ASSIST - 12/11/2023 3:59 PM EST Left generic message on answering machine asking patient to return our call to [phone]. Letter sent * Telephone Encounter - Jazzy Hernandez LPN - 12/06/2023 8:52 AM EST No answer at pt's number. Phone rang busy x 2. When patient returns call please transfer to [phone] in regards to below message from Dr. Rae. * Telephone Encounter - Radha Aguilar LPN - 12/04/2023 11:38 AM EST Attempted to reach pt x 2, received busy signal both times. * Addendum Note - Ilsa Rae MD - 12/01/2023 7:14 PM ESTAddended by: ILSA RAE on: 12/01/2023 07:14 PM Modules accepted: Orders * Telephone Encounter - Ilsa Rae MD - 12/01/2023 7:11 PM EST Will call in one time refill on Tramadol. Since it is a controlled substance, will need to have an BART prior to prescribing it fpc. * Telephone Encounter - Janeth Taylor NRThor - 12/01/2023 5:05 PM EST Pt is completely out of medicine and pt was told by [facility] to go to [place]. Pt was seen at [facility] was told they would not operate and therefore would not give pt any medicine. I told pt's , who took over the call, he should try calling [facility] to get this refill. I did ask if they had tried ibuprofen or tylenol and he said they have and it really doesn't work. He also stated that the Tramadol only takes the edge off of the pain but at least gives some relief. He asked again if it would be possible to get some med or if you could suggest some other med that might help.He is concerned because this is the weekend. * Telephone Encounter - Ilsa Rae MD - 12/01/2023 4:44 PM EST Per PDMP, this was prescribed by Ortho at [facility] (Dr. Esparza). Should reach out to them for refills. * Telephone Encounter - Marci Rinaldi RN - 12/01/2023 2:23 PM EST Provider to address: Medication listed as discontinue per patient preference. Please advise. Reason for Call: Med Request (Tramadol) Contact: Telephone Call Contact Type: Medication Outcome: see above. Face to face time spent with Patient (minutes): 0 Total Time including non face to face (minutes): 10 * Telephone Encounter - Lily Mariano OSA - 12/01/2023 1:16 PM EST A medication prescription was requested for this patient. Name of Requestor: Tessa Marquis Medication: Tramadol Reason for request: Refill Current dose (if applicable): 50 mg 1 every 12 hrs Dose requested (if applicable/Mail Order should be 90 day Supply): Current quantity (if applicable): Quantity requested (if applicable): Preferred pharmacy: [facility] documented in this encounter Plan of Treatment Upcoming Encounters Date Type Department Care Team (Late st Contact Info) Description 05/06/2024 2:40 PM EDT Office Visit [facility] [address] [place] [address] Ilsa Rae MD [address] [place] [id number] Scheduled Procedures Name Priority Associated Diagnoses Date/Ti me COLONOSCOPY FLEXIBLE PROXIMAL DIAGNOSTIC Recall History of colon polyps Health Maintenance Due Date Last Done Comments DISCUSS TOBACCO CESSATION (REFER TO SMARTSET #7211) 1945 DXA Scan 1946 COVID-19 Vaccine (#1) [...] 01/16/2024 01/16/2023, 10/27 CKD HGB USE SMARTSET 54679 06/09/202406/09, 06/09/2023, 12/09/2022, Additional history exists CKD PHOS USE SMARTSET 34231 06/09/2024 06/09/2023 O2 ASSESSMENT COMPLETED IN PAST [...] this encounter Visit Diagnoses Diagnosis Chronic pain syndrome- Primary documented in this encounter Care Teams Credit Counselor Relationship Specialty Start Date End Date Ilsa Rae MD [address] [place] [id number] PCP - General Family Medicine 04/17/23 documented as of this encounter"
--- OUTSIDE RECORDS SUMMARY | 2024-05-05 14:00 | External Medical Summary | Summary of Care ---
Author Name Unknown Organization [facility] Address [address] [place] [address] Phone [phone] Care Team Providers Care Trust Clerk Name Role Phone Ian Rae MD Primary Care Provider [phone] Encounter Details Date Type Department Care Team (Late st Contact Info) Description 02/06/2024 Result Scan Unspecified Department <No scans attached> Allergies Active Allergy Reactions Criticality Noted Date Comments Prednisone Nausea/vomiting,Rash 11/05/2015 documented as of this encounter (statuses as of 02/19/2024) Medications Medication Sig Dispensed Refills Start Date [...] as needed for Pain, Severe. 90 Tablet 0 12/25/2023 Active documented as of this encounter (statuses as of 02/19/2024) Active Problems Problem Noted Date Diagnosed Date [...] as of this encounter (statuses as of 02/19/2024) Resolved Problems Problem Noted Date Diagnosed Date Resolved Date Kidney disease, chronic, sta ge III (GFR 30-59 ml/min) 02/03/2020 10/08/2020 Overview: Per CKD protocol Benign paroxysmal vertigo 03/27/2017 Overview: 09/20/2018 Few times a year About 1 min caused typically by head movement Abdominal pain, right lower quadrant 06/15/2015 01/30/2020 documented as of this encounter (statuses as of 02/19/2024) Immunizations Name Administration Dates Next Due Pneumococcal Polysaccharide PPV23 (Pneumovax) 11/23/2015(Deferred: Patient Refused) Seasonal Influenza, Split, I IV3, With Preserve, Inj 11/23/2015(Deferred: Patient Refused) Varicella Zoster Vaccine (Adult) 11/23/2015(Defe rred: Patient Refused) documented as of this encounter Social History Tobacco Use Types Packs/Day Years Used Date Smoking Tobacco: Every Day Cigarettes 0.3 44.2 Started: 11/27/1979 Smokeless Tobacco: Never Comments:4-5 cigarettes/day [...] on file documented as of this encounter Plan of Treatment Upcoming Encounters Date Type Department Care Team (Late st Contact Info) Description 05/06/2024 2:40 PM EDT Office Visit [facility] [address] [place] [address] [phone] Ian Rae MD [address] [phone] Scheduled Procedures Name Priority Associated Diagnoses Date/Ti me COLONOSCOPY FLEXIBLE PROXIMAL DIAGNOSTIC Recall History of colon polyps Health Maintenance Due Date Last Done Comments DISCUSS TOBACCO CESSATION (REFER TO SMARTSET #3291) 1945 DXA Scan 1945 Pneumococcal Vaccine: 65+ Years (1 of 2 - PCV) 1952 Alpha-1 Antitrypsin 1964 DTaP,Tdap,and Td Vaccines (1 - Tdap) 1965 Zoster Vaccines (1 of 2) 1996 COVID-19 Vaccine (1 - 2022-24 season) 2023 Influenza Vaccine (FLU shot) (#1) 2023 *COPD SEVERITY VERIFIED BY PFT 10/27/2023 Depression Screening 12/09/2023 12/09/2022 GFR 12/10/2023 06/09/2023, 12/29, 12/09/2022, Additional history exists Albumin/Creatinine Ratio 01/16/2024 01/16/2023, 10/27 CKD HGB USE SMARTSET 14127 06/09/202406/09, 06/09/2023, 12/09/2022, Additional history exists CKD PHOS USE SMARTSET 08483 06/09/2024 06/09/2023 O2 ASSESSMENT COMPLETED IN PAST [...] Not on filedocumented as of this encounter Procedures Procedure Name Priority Date/Time Associated Diagnosis Comments PROCEDURE SCANNED RESULT 02/06/2024 documented in this encounter Results * PROCEDURE SCANNED RESULT (02/06/2024) 02/06/2024 No Physician Data Unknown SURGERY documented in this encounter Care Teams Trust Clerk Relationship Specialty Start Date End Date Ian Rae MD [address] [place] [address] PCP - General Family Medicine 04/17/23 documented as of this encounter"
--- OUTSIDE RECORDS SUMMARY | 2024-05-05 14:00 | External Medical Summary | Summary of Care ---
Author Name Unknown Organization [facility] Address [address] [facility] [place] [address] Phone [phone] Care Team Providers Care Janitor Caretaker Name Role Phone Ilsa Rae MD Primary Care Provider [phone] Reason for Referral * Medication Prior Authorization - Closed Specialty Diagnoses / Procedures Referred By Contcharity t Referred To Contact Diagnoses Chronic pain syndrome Ilsa Rae MD 21 [facility] [place] [address] Referral ID Status Reason Start Date Expiration Date Visits Re quested Visits Authorized [id number] Closed 999 999 Reason for Visit * Reason Onset Date Comments Med Request 12/01/202312/04, 12/06, 12/11 Encounter Details Date Type Department Care Team (Late st Contact Info) Description 12/01/[address] [place] [address] Ilsa Rae MD 21 [facility] [place] [address] Med Request (12/04, 12/06, 12/11) Allergies Active Allergy Reactions Criticality Noted Date Comments Prednisone Nausea/vomiting,Rash 11/05/2015 documented as of this encounter (statuses as of 12/12/2023) Medications Medication Sig Dispensed Refills Start Date [...] as of this encounter (statuses as of 12/12/2023) Active Problems Problem Noted Date Diagnosed Date [...] as of this encounter (statuses as of 12/12/2023) Resolved Problems Problem Noted Date Diagnosed Date Resolved Date Kidney disease, chronic, sta ge III (GFR 30-59 ml/min) 02/03/2020 10/08/2020 Overview: Per CKD protocol Benign paroxysmal vertigo 03/27/2017 Overview: 09/20/2018 Few times a year About 1 min caused typically by head movement Abdominal pain, right lower quadrant 06/15/2015 01/30/2020 documented as of this encounter (statuses as of 12/12/2023) Immunizations Name Administration Dates Next Due Pneumococcal [...] encounter Miscellaneous Notes * Telephone Encounter - Genoveva Borges LPN - 12/12/2023 8:43 AM EST Patient aware and verbalized understanding, will comply. [place] scheduled 1/18 to complete BART. * Telephone Encounter - Minnie Currie MED ASSIST - 12/11/2023 3:59 PM EST Left generic message on answering machine asking patient to return our call to [phone]. Letter sent * Telephone Encounter - Jazzy Hernandez LPN - 12/06/2023 8:52 AM EST No answer at pt's number. Phone rang busy x 2. When patient returns call please transfer to [phone] in regards to below message from Dr. [...] have an BART prior to prescribing it mcfp. * Telephone Encounter - [facility] - 12/01/2023 5:05 PM EST Pt is completely out of medicine and pt was told by Ortho [facility] to go to [place]. [facility] therefore would not give pt any medicine. I told pt's , who took over the call, he should try calling [facility] to get this refill. I did ask [...] PDMP, this was prescribed by Ortho at [facility] (Dr. Esparza). Should reach out to [...] requested for this patient. Name of Requestor: Tessara Marquis Medication: Tramadol Reason for request: Refill Current dose (if applicable): 50 mg 1 every 12 hrs Dose requested (if applicable/Mail Order should be 90 day Supply): Current quantity (if applicable): Quantity requested (if applicable): Preferred pharmacy: [facility] documented in this encounter Plan of Treatment Upcoming Encounters Date Type Department Care Team (Late st Contact Info) Description 12/14/2023 3:20 PM EST Nurse Only Ancillary 1st Floor, [place] [address] [address] [address] Nurse Christopher Baron [facility] [place] [address] 05/06/2024 2:40 PM EDT Office Visit [facility] [place] [address] [address] [phone] Ilsa Rae MD 21 [facility] [place] [address] Scheduled Procedures Name Priority Associated Diagnoses Date/Ti me COLONOSCOPY FLEXIBLE PROXIMAL DIAGNOSTIC Recall History of colon polyps Health Maintenance Due Date Last Done Comments DISCUSS TOBACCO CESSATION (REFER TO SMARTSET #1798) 1945 DXA Scan 1945 COVID-19 Vaccine (#1) [...] 01/16/2024 01/16/2023, 10/27 CKD HGB USE SMARTSET 72126 06/09/202406/09, 06/09/2023, 12/09/2022, Additional history exists CKD PHOS USE SMARTSET 98539 06/09/2024 06/09/2023 O2 ASSESSMENT COMPLETED IN PAST [...] Primary documented in this encounter Care Teams Janitor Caretaker Relationship Specialty Start Date End Date Ilsa Rae MD [address] [place] [id number] PCP - General Family Medicine 04/17/23 documented as of this encounter"
--- OUTSIDE RECORDS SUMMARY | 2024-05-05 14:00 | External Medical Summary | Summary of Care ---
Author Name Unknown Organization [facility] Address [address] [place] [address] Phone [phone] Care Team Providers Care Director Fixed Income Name Role Phone Ian Rae MD Primary Care Provider +1 [phone] Reason for Referral * Ancillary Services (Within 10 days (routine)) - Pending Review Specialty Diagnoses / Procedures Referred By Ngoc blackburn Referred To Contact Audiology Diagnoses Hearing loss, bilateral Ian Rae MD jason [place] [id number] Referral ID Status Reason Start Date Expiration Date Visits Requested Visits Authorized [id number] Pending Review Ancillary Services Required 02/05/2024 999 999 Question Answer Referral Priority Within 10 days (routine) Where should this appointment be scheduled? [facility] Reason for Referral: Hearing Loss - readjust hearing aids Is this sudden hearing loss or post chemotherapy hearing loss? No Reason for Visit * Reason Onset Date Comments Referral 02/05/2024 Appt 02/06/24 2PM Encounter Details Date Type Department Care Team (Late st Contact Info) Description [facility] [address] [place] [phone] Ian Rae MD [address] [address] Referral (Appt 02/06/24 2PM) Allergies Active Allergy Reactions Criticality Noted Date Comments Prednisone Nausea/vomiting,Rash 11/05/2015 documented as of this encounter (statuses as of 02/05/2024) Medications Medication Sig Dispensed Refills Start Date [...] as of this encounter (statuses as of 02/05/2024) Active Problems Problem Noted Date Diagnosed Date [...] as of this encounter (statuses as of 02/05/2024) Resolved Problems Problem Noted Date Diagnosed Date Resolved Date Kidney disease, chronic, sta ge III (GFR 30-59 ml/min) 02/03/2020 10/08/2020 Overview: Per CKD protocol Benign paroxysmal vertigo 03/27/2017 Overview: 09/20/2018 Few times a year About 1 min caused typically by head movement Abdominal pain, right lower quadrant 06/15/2015 01/30/2020 documented as of this encounter (statuses as of 02/05/2024) Immunizations Name Administration Dates Next Due Pneumococcal [...] encounter Miscellaneous Notes * Telephone Encounter - Odalys Hoff OSA - 02/05/2024 4:08 PM EDT Referral faxed as requested fax back ok * Telephone Encounter - Janeth Ash OSA - 02/05/2024 3:44 PM EDT Has the patient been seen for this problem? (Y/N)?: y If No, an appt needs to be scheduled before a referral will be placed (exception: proceed with referral request if referral request is for a yearly routine appointment with speciality) Patient Name: Tessa Marquis Patient Primary care provider: Ian Rae MD Does this need to be an insurance referral (Y/N)?: y If Yes, does the insurance referral need to be placed into the [facility] system? Name of preferred specialist: [facility] Type of specialist: Audiology Location of specialist: n/a Specialist's Phone #: [phone] Specialist's Fax #: [phone] Reason for visit: readjust hearing aids Date of visit: 02/06/24 2 PM documented in this encounter Plan of Treatment Upcoming Encounters Date Type Department Care Team (Late st Contact Info) Description 05/06/2024 2:40 PM EDT Office Visit [facility] [address] [address] [phone] Ian Rae MD [address] [place] [address] Scheduled Procedures Name Priority Associated Diagnoses Date/Ti me COLONOSCOPY FLEXIBLE PROXIMAL DIAGNOSTIC Recall History of colon polyps Scheduled Referrals Name Type Priority Associated Diagnoses Orde r Schedule AUDIOLOGY REFERRAL OP Referral Within 10 days (routine) Hearing loss, bilateral Ordered: 02/05/2024 Health Maintenance Due Date Last Done Comments DISCUSS TOBACCO CESSATION (REFER TO SMARTSET #3291) 1945 DXA Scan 1945 Pneumococcal Vaccine: 65+ Years (1 of 2 - PCV) 1952 Alpha-1 Antitrypsin 1964 DTaP,Tdap,and Td Vaccines (1 - Tdap) 1965 Zoster Vaccines (1 of 2) 1996 COVID-19 Vaccine (1 - 2022- season) 2023 Influenza Vaccine (FLU shot) (#1) 2023 *COPD SEVERITY VERIFIED BY PFT 10/27/2023 Depression Screening 12/09/2023 12/09/2022 GFR 12/10/2023 06/09/2023, 12/29, 12/09/2022, Additional history exists Albumin/Creatinine Ratio 01/16/2024 01/16/2023, 10/27 CKD HGB USE SMARTSET 35088 06/09/202406/09, 06/09/2023, 12/09/2022, Additional history exists CKD PHOS USE SMARTSET 12271 06/09/2024 06/09/2023 O2 ASSESSMENT COMPLETED IN PAST [...] as of this encounter Visit Diagnoses Diagnosis Hearing loss, bilateral- Primary Unspecified hearing loss documented in this encounter Care Teams Director Fixed Income Relationship Specialty Start Date End Date Ian Rae MD [address] [place] [address] [address] PCP - General Family Medicine 04/17/23 documented as of this encounter"
--- OUTSIDE RECORDS SUMMARY | 2024-05-05 14:00 | External Medical Summary | Summary of Care ---
Author Name Unknown Organization [facility] Address [address] [address] Phone [phone] Care Team Providers Care Director Digital Name Role Phone Ian Rae MD Primary Care Provider [phone] [phone] Reason for Visit * Reason Comments eRx-Medication Refill Encounter Details Date Type Department Care Team (Late st Contact Info) Description 12/07/2023 Refill [facility] [address] [place] [address] Ian Rae MD 21 [facility] [place] [id number] Fusion of spine, lumbar region; Chronic pain syndrome Allergies Active Allergy Reactions Criticality Noted Date Comments Prednisone Nausea/vomiting,Rash 11/05/2015 documented as of this encounter (statuses as of 12/08/2023) Medications Medication Sig Dispensed Refills Start Date [...] as of this encounter (statuses as of 12/08/2023) Active Problems Problem Noted Date Diagnosed Date [...] as of this encounter (statuses as of 12/08/2023) Resolved Problems Problem Noted Date Diagnosed Date Resolved Date Kidney disease, chronic, sta ge III (GFR 30-59 ml/min) 02/03/2020 10/08/2020 Overview: Per CKD protocol Benign paroxysmal vertigo 03/27/2017 Overview: 09/20/2018 Few times a year About 1 min caused typically by head movement Abdominal pain, right lower quadrant 06/15/2015 01/30/2020 documented as of this encounter (statuses as of 12/08/2023) Immunizations Name Administration Dates Next Due Pneumococcal [...] encounter Miscellaneous Notes * Telephone Encounter - Pavithra Beckman [facility] - 12/08/2023 10:44 AM ESTRefused Prescriptions: Disp Refills DULoxetine HCl 20 MG Oral Capsule Delayed *30 Cap*5 Sig: Take 1Capsule by mouth in the morning. Do not cut, crush or chew.Refused By: PAVITHRA BECKMAN for Refusal: Dose needs clarificationReason for Refusal Comment: changed to 30mg - sent 10/25/23 documented in this encounter Plan of Treatment Upcoming Encounters Date Type Department Care Team (Late st Contact Info) Description 05/06/2024 2:40 PM EDT Office Visit [facility] [address] [phone] Ian Rae MD [address] [address] Scheduled Procedures Name Priority Associated Diagnoses Date/Ti me COLONOSCOPY FLEXIBLE PROXIMAL DIAGNOSTIC Recall History of colon polyps Health Maintenance Due Date Last Done Comments DISCUSS TOBACCO CESSATION (REFER TO SMARTSET #3291) 1945 DXA Scan 1946 COVID-19 Vaccine (#1) [...] 01/16/2024 01/16/2023, 10/27 CKD HGB USE SMARTSET 27437 06/09/202406/09, 06/09/2023, 12/09/2022, Additional history exists CKD PHOS USE SMARTSET 59272 06/09/2024 06/09/2023 O2 ASSESSMENT COMPLETED IN PAST [...] as of this encounter Visit Diagnoses Diagnosis Fusion of spine, lumbar region Chronic pain syndrome documented in this encounter Care Teams Director Digital Relationship Specialty Start Date End Date Ian Rae MD [address] [id number] PCP - General Family Medicine 04/17/23 documented as of this encounter"
--- OUTSIDE RECORDS SUMMARY | 2024-05-05 14:00 | External Medical Summary | Summary of Care ---
Author Name Unknown Organization [facility] Address [address] [place] [address] Phone [phone] Care Team Providers Care Middle School Football Coach Name Role Phone Ian Rae MD Primary Care Provider [phone] [phone] Reason for Referral * Ancillary Services (Within 10 days (routine)) - Pending Review Specialty Diagnoses / Procedures Referred By Ngoc blackburn Referred To Contact Audiology Diagnoses Hearing loss, bilateral Ian Rae MD [address] [place] [id number] Referral ID Status Reason Start Date Expiration Date Visits Requested Visits Authorized [id number] Pending Review Ancillary Services Required 02/05/2024 999 [...] (Late st Contact Info) Description 02/05/[address] [address] [place] [address] [address] Ian Rae MD [...] referral need to be placed into the [facility] system? Name of preferred specialist: [facility] Type of specialist: Audiology Location of specialist: n/a Specialist's Phone #: [phone] Specialist's Fax #: [phone] Reason for visit: readjust hearing aids Date of visit: 02/06/24 2 PM documented in this encounter Plan of Treatment Upcoming Encounters Date Type Department Care Team (Late st Contact Info) Description 05/06/2024 2:40 PM EDT Office Visit [facility] [address] [phone] Ian Rae [...] 01/16/2024 01/16/2023, 10/27 CKD HGB USE SMARTSET 07114 06/09/202406/09, 06/09/2023, 12/09/2022, Additional history exists CKD PHOS USE SMARTSET 79340 06/09/2024 06/09/2023 O2 ASSESSMENT COMPLETED IN PAST [...] loss documented in this encounter Care Teams Middle School Football Coach Relationship Specialty Start Date End Date Ian Rae MD [address] [place] [address] [address] PCP - General Family Medicine 04/17/23 documented as of this encounter"
--- OUTSIDE RECORDS SUMMARY | 2024-05-05 14:00 | External Medical Summary | Summary of Care ---
Author Name Unknown Organization [facility] Address [address] [facility] [place] [address] Phone [phone] Care Team Providers Care Solvent Plant Treater Name Role Phone Ian Rae MD Primary Care Provider [phone] [phone] Reason for Referral * Medication Prior Authorization - Closed Specialty Diagnoses / Procedures Referred By Contcharity t Referred To Contact Diagnoses Chronic pain syndrome Ian Rae MD 21 [facility] [place] [address] Referral ID Status Reason Start Date Expiration Date Visits Re quested Visits Authorized [id number] Closed 999 999 Reason for Visit * Reason Onset Date Comments Med Request 12/22/2023 Status Check 12/25/2023 Encounter Details Date Type Department Care Team (Late st Contact Info) Description 12/22/[address] [facility] [place] [address] [place] [address] Ian Rae MD 21 [facility] [place] [id number] Med Request; Status Check Allergies Active Allergy Reactions Criticality Noted Date Comments Prednisone Nausea/vomiting,Rash 11/05/2015 documented as of this encounter (statuses as of 03/22/2024) Medications Medication Sig Dispensed Refills Start Date [...] s (CENTRUM SILVER) CHEW Take by mouth. 0 [...] Pain, Severe. 90 Tablet 0 12/25/2023 Active traMADol HCl 50 MG Oral Tablet (Ultram)Indicati ons:Chronic pain syndrome Take 1 Tablet by mouth every 12 hours as needed for Pain, Severe. 15 Tablet 0 12/01/2023 12/25/2023 Discontinue d(Refill) documented as of this encounter (statuses as of 03/22/2024) Active Problems Problem Noted Date Diagnosed Date [...] as of this encounter (statuses as of 03/22/2024) Resolved Problems Problem Noted Date Diagnosed Date Resolved Date Kidney disease, chronic, sta ge III (GFR 30-59 ml/min) 02/03/2020 10/08/2020 Overview: Per CKD protocol Benign paroxysmal vertigo 03/27/2017 Overview: 09/20/2018 Few times a year About 1 min caused typically by head movement Abdominal pain, right lower quadrant 06/15/2015 01/30/2020 documented as of this encounter (statuses as of 03/22/2024) Immunizations Name Administration Dates Next Due Pneumococcal Polysaccharide PPV23 (Pneumovax) 11/23/2015(Deferred: Patient Refused) Seasonal Influenza, Split, I IV3, With Preserve, Inj 11/23/2015(Deferred: Patient Refused) Varicella Zoster Vaccine (Adult) 11/23/2015(Defe rred: Patient Refused) documented as of this encounter Social History Tobacco Use Types Packs/Day Years Used Date Smoking Tobacco: Every Day Cigarettes 0.3 44.3 Started: 11/27/1979 Smokeless Tobacco: Never Comments:4-5 cigarettes/day [...] encounter Miscellaneous Notes * Telephone Encounter - Lamar Jean-Baptiste CMA - 12/26/2023 10:10 AM EST Pt informed of the below msg and verbalized understanding. * Telephone Encounter - Ian Rae MD - 12/25/2023 10:40 AM EST Will increase it to every 8 hrs as she is taking other medications that can interact with Tramadol. * Telephone Encounter - Shanice Reyes [facility] - 12/25/2023 10:13 AM EST Spoke to pt regarding Tramadol 50mg - she current takes every 12 hours. Patient is requesting an increase in frequency to take every 6 hours. Patient will establish with pain management in [place] on January 26 - she states she has a telephone visit with Dr. Eason in regard to an injectable to help with pain management, but would like additional relief until then. Thank you, Shanice Reyes, PharmD Clinical Pharmacist [facility] 12/25/23 10:16 AM [phone] * Telephone Encounter - Ruddy Bruno, socially responsible investment adviser - 12/25/2023 10:06 AM EST Pt's calling stating they did not receive a phone call back. Informed caller of previous message regarding pt waiting to see isabela pain management. Pt asking if she can take more than 1 tablet every 12 hours. Informed caller I could connect her with an [facility] to discuss a dose change. Caller agreeable. Warm transferred caller to [facility]. Pt calling in to request a dose change on their traMADol HCl . Current dose: 50 mg Requested dose: increase Reason for request: Pt stating pain medicine "not really helping." Preferred pharmacy: [facility] Warm-transferred pt to pharmacist for consultation. Thank you, Ruddy Bruno Ic Design Engineer I [facility] ([facility]formerly Telepharmacy) 12/25/2023,10:09 AM * Telephone Encounter - Amy Shearer LPN - 12/22/2023 1:07 PM EST Pt states she see's pain management in [place] and she thinks she has an upcoming appt. She wants to wait until she se's them. * Telephone Encounter - Ian Rae MD - 12/22/2023 12:55 PM EST Can refer to [facility] pain if willing for further assistance. But will need to have UDS and BART prior to referral being placed. * Telephone Encounter - Suni Cleveland OSA - 12/22/2023 10:29 AM EST Pt's calling pt is on tramadol for pain not helping would like to know if something else can be called in for her. documented in this encounter Plan of Treatment Upcoming Encounters Date Type Department Care Team (Late st Contact Info) Description 05/06/2024 2:40 PM EDT [facility] [address] [place] [address] [phone] Ian Rae MD [address] [place] [address] [id number] Scheduled Procedures Name Priority Associated Diagnoses Date/Ti me COLONOSCOPY FLEXIBLE PROXIMAL DIAGNOSTIC Recall History of colon polyps Health Maintenance Due Date Last Done Comments DISCUSS TOBACCO CESSATION (REFER TO SMARTSET #8702) 1945 DXA Scan 1945 Pneumococcal Vaccine: 65+ Years (1 of 2 - PCV) 1952 Alpha-1 Antitrypsin 1964 DTaP,Tdap,and Td Vaccines (1 - Tdap) 1965 Zoster Vaccines (1 of 2) 1996 COVID-19 Vaccine (1 - season) 2023 *COPD SEVERITY VERIFIED BY PFT 10/27/2023 Depression Screening 12/09/2023 12/09/2022 GFR 12/10/2023 06/09/2023, 12/29, 12/09/2022, Additional history exists Albumin/Creatinine Ratio 01/16/2024 01/16/2023, 10/27 CKD HGB USE SMARTSET 82375 06/09/202406/09, 06/09/2023, 12/09/2022, Additional history exists CKD PHOS USE SMARTSET 91971 06/09/2024 06/09/2023 O2 ASSESSMENT COMPLETED IN PAST YEAR FOR COPD 07/12/2024 07/12/2023 Influenza Vaccine (FLU shot) (Season Ended) 2024 RETIRED - COLONOSCOPY-EVERY 3 YRS AGES 18-100 05/19/2026 05/19/2023, [...] syndrome documented in this encounter Care Teams Solvent Plant Treater Relationship Specialty Start Date End Date Ian Rae MD [address] [place] [address] [id number] PCP - General Family Medicine 04/17/23 documented as of this encounter
--- OUTSIDE RECORDS SUMMARY | 2024-05-05 14:00 | External Medical Summary | Summary of Care ---
Author Name Unknown Organization [facility] Address [address] [facility] [place] [address] Phone [phone] Care Team Providers Care Internal Affairs Investigator Name Role Phone Ilsa Rae MD Primary Care Provider [phone] Reason for Referral * Medication Prior Authorization - Pending Review Specialty Diagnoses / Procedures Referred By Contcharity t Referred To Contact Diagnoses Chronic pain syndrome Ilsa Rae MD 21 [facility] [place] [address] Referral ID Status Reason Start Date Expiration Date V isits Requested Visits Authorized [id number] Pending Review 999 999 Reason for Visit * Reason Onset Date Comments Med Request 12/01/2023 Tramadol Encounter Details Date Type Department Care Team (Late st Contact Info) Description 12/01/2023 [facility]phone [facility] [address] [place] [phone] Ilsa Rae MD 21 [facility] [place] [id number] Med Request (Tramadol) Allergies Active Allergy Reactions Criticality Noted Date Comments Prednisone Nausea/vomiting,Rash 11/05/2015 documented as of this encounter (statuses as of 12/01/2023) Medications Medication Sig Dispensed Refills Start Date [...] as of this encounter (statuses as of 12/01/2023) Active Problems Problem Noted Date Diagnosed Date [...] as of this encounter (statuses as of 12/01/2023) Resolved Problems Problem Noted Date Diagnosed Date Resolved Date Kidney disease, chronic, sta ge III (GFR 30-59 ml/min) 02/03/2020 10/08/2020 Overview: Per CKD protocol Benign paroxysmal vertigo 03/27/2017 Overview: 09/20/2018 Few times a year About 1 min caused typically by head movement Abdominal pain, right lower quadrant 06/15/2015 01/30/2020 documented as of this encounter (statuses as of 12/01/2023) Immunizations Name Administration Dates Next Due Pneumococcal [...] as of this encounter Miscellaneous Notes * Addendum Note - Ilsa Rae MD - 12/01/2023 7:14 PM ESTAddended by: ILSA RAE on: 12/01/2023 07:14 PM Modules accepted: Orders * Telephone Encounter - Ilsa Rae MD - 12/01/2023 7:11 PM EST Will call in one time refill on Tramadol. Since it is a controlled substance, will need to have an BART prior to prescribing it mcc. * Telephone Encounter - [facility] - 12/01/2023 5:05 PM EST Pt is completely out of medicine and pt was told by Ortho [facility] to go [facility] [place]. [facility] and therefore would not give pt any medicine. I told pt's , who took over the call, he should try calling [facility] to get this refill. I did ask [...] PDMP, this was prescribed by Ortho at [facility] (Dr. Esparza). Should reach out to [...] for this patient. Name of Requestor: Tessara Terrazasman Medication: Tramadol Reason for request: Refill Current dose (if applicable): 50 mg 1 every 12 hrs Dose requested (if applicable/Mail Order should be 90 day Supply): Current quantity (if applicable): Quantity requested (if applicable): Preferred pharmacy: [facility] documented in this encounter Plan of Treatment Upcoming Encounters Date Type Department Care Team (Late st Contact Info) Description 05/06/2024 2:40 PM EDT [facility] [place] [phone] Ilsa Rae MD [address] [facility] [place] [id number] Scheduled Procedures Name Priority Associated Diagnoses Date/Ti me COLONOSCOPY FLEXIBLE PROXIMAL DIAGNOSTIC Recall History of colon polyps Health Maintenance Due Date Last Done Comments DISCUSS TOBACCO CESSATION (REFER TO SMARTSET #9379) 1945 DXA Scan 1946 COVID-19 Vaccine (#1) [...] 01/16/2024 01/16/2023, 10/27 CKD HGB USE SMARTSET 82119 06/09/202406/09, 06/09/2023, 12/09/2022, Additional history exists CKD PHOS USE SMARTSET 96435 06/09/2024 06/09/2023 O2 ASSESSMENT COMPLETED IN PAST [...] Primary documented in this encounter Care Teams Internal Affairs Investigator Relationship Specialty Start Date End Date Ilsa Rae MD [address] [place] [id number] PCP - General Family Medicine 04/17/23 documented as of this encounter"
--- OUTSIDE RECORDS SUMMARY | 2024-05-05 14:00 | External Medical Summary | Summary of Care ---
Author Name Unknown Organization [facility] Address [address] [address] Phone [phone] Care Team Providers Care Solid Waste Facility Supervisor Name Role Phone Ilsa Rae MD Primary Care Provider [phone] [phone] Reason for Referral * Medication Prior Authorization - Closed Specialty Diagnoses / Procedures Referred By Contcharity t Referred To Contact Diagnoses Chronic pain syndrome Ilsa Rae MD 21 [facility] [place] [address] Referral ID Status Reason Start Date Expiration Date Visits Re quested Visits Authorized [id number] Closed 999 999 Reason for Visit * Reason Onset Date Comments Med Request 12/01/202312/06 Encounter Details Date Type Department Care Team (Late st Contact Info) Description 12/01/2023 Telephone [facility] [address] [facility] [place] [phone] Ilsa Rae MD 21 [facility] [place] [address] Med Request (12/06) Allergies Active Allergy Reactions Criticality Noted Date Comments Prednisone Nausea/vomiting,Rash 11/05/2015 documented as of this encounter (statuses as of 12/07/2023) Medications Medication Sig Dispensed Refills Start Date [...] as of this encounter (statuses as of 12/07/2023) Active Problems Problem Noted Date Diagnosed Date [...] as of this encounter (statuses as of 12/07/2023) Resolved Problems Problem Noted Date Diagnosed Date Resolved Date Kidney disease, chronic, sta ge III (GFR 30-59 ml/min) 02/03/2020 10/08/2020 Overview: Per CKD protocol Benign paroxysmal vertigo 03/27/2017 Overview: 09/20/2018 Few times a year About 1 min caused typically by head movement Abdominal pain, right lower quadrant 06/15/2015 01/30/2020 documented as of this encounter (statuses as of 12/07/2023) Immunizations Name Administration Dates Next Due Pneumococcal [...] encounter Miscellaneous Notes * Telephone Encounter - Jazzy Hernandez LPN - 12/06/2023 8:52 AM EST No answer at pt's number. Phone rang busy x 2. When patient returns call please transfer to [phone] in regards to below message from Dr. [...] have an BART prior to prescribing it nursing home. * Telephone Encounter - Janeth Taylor NRCMA - 12/01/2023 5:05 PM EST Pt is completely out of medicine and pt was [facility] by [facility] [place] therefore would not give pt any medicine. I told pt's , who took over the call, he should try calling [facility] to get this refill. I did ask [...] PDMP, this was prescribed by Ortho at [facility] (Dr. Esparza). Should reach out to them [...] applicable): Quantity requested (if applicable): Preferred pharmacy: [facility] documented in this encounter Plan of Treatment Upcoming Encounters Date Type Department Care Team (Late st Contact Info) Description 05/06/2024 2:40 PM EDT Office Visit [facility] [address] [place] [address] [phone] Ilsa Rae MD [address] [place] [address] [address] Scheduled Procedures Name Priority Associated Diagnoses Date/Ti me COLONOSCOPY FLEXIBLE PROXIMAL DIAGNOSTIC Recall History of colon polyps Health Maintenance Due Date Last Done Comments DISCUSS TOBACCO CESSATION (REFER TO SMARTSET #4462) 1945 DXA Scan 1946 COVID-19 Vaccine (#1) [...] 01/16/2024 01/16/2023, 10/27 CKD HGB USE SMARTSET 47342 06/09/202406/09, 06/09/2023, 12/09/2022, Additional history exists CKD PHOS USE SMARTSET 71725 06/09/2024 06/09/2023 O2 ASSESSMENT COMPLETED IN PAST [...] Primary documented in this encounter Care Teams Solid Waste Facility Supervisor Relationship Specialty Start Date End Date Ilsa Rae MD [address] [place] [address] [address] PCP - General Family Medicine 04/17/23 documented as of this encounter"
--- OUTSIDE RECORDS SUMMARY | 2024-05-05 14:00 | External Medical Summary | Summary of Care ---
Author Name Unknown Organization [facility] Address [address] [facility] [address] Phone [phone] Care Team Providers Care Tube Coremaker Name Role Phone Ian Rae MD Primary Care Provider +1 [phone] Reason for Visit * Reason Comments eRx-Medication Refill Encounter Details Date Type Department Care Team (Late st Contact Info) Description 12/07/2023 Refill [facility] [place] [address] Ian Rae MD 21 [facility] [place] [phone] Fusion of spine, lumbar region; Chronic pain [...] Notes * Telephone Encounter - Pavithra Beckman [facility] - 12/08/2023 10:44 AM ESTRefused Prescriptions: [...] PM EST Nurse Only Ancillary 1st Floor, [place] [address] [place] [address] [address] Nurse Christopher Baron [address] [place] [address] [address] 05/06/2024 2:40 PM EDT Office Visit [facility], [place] [address] [place] [address] [address] Ian Rae MD [...] 01/16/2024 01/16/2023, 10/27 CKD HGB USE SMARTSET 24355 06/09/202406/09, 06/09/2023, 12/09/2022, Additional history exists CKD PHOS USE SMARTSET 34033 06/09/2024 06/09/2023 O2 ASSESSMENT COMPLETED IN PAST [...] syndrome documented in this encounter Care Teams Tube Coremaker Relationship Specialty Start Date End Date Ian Rae MD [address] [place] [address] [address] PCP - General Family Medicine 04/17/23 documented as of this encounter"
--- OUTSIDE RECORDS SUMMARY | 2024-05-05 14:00 | External Medical Summary | Summary of Care ---
Author Name Unknown Organization [facility] Address [address] [place] [address] Phone [phone] Care Team Providers Care Door Frame Assembler Machine Name Role Phone Ian Rae MD Primary Care Provider +1 [phone] Encounter Details Date Type Department Care Team (Late st Contact Info) Description 12/14/2023 3:20 PM EST Nurse Only Ancillary 1st Floor, [place] [facility] [place] [address] [place], Nurse Christopher 21 [facility] [place] [address] Arrived Allergies Active Allergy Reactions Criticality Noted Date Comments Prednisone Nausea/vomiting,Rash 11/05/2015 documented as of this encounter (statuses as of 12/14/2023) Medications Medication Sig Dispensed Refills Start Date [...] as of this encounter (statuses as of 12/14/2023) Active Problems Problem Noted Date Diagnosed Date [...] as of this encounter (statuses as of 12/14/2023) Resolved Problems Problem Noted Date Diagnosed Date Resolved Date Kidney disease, chronic, sta ge III (GFR 30-59 ml/min) 02/03/2020 10/08/2020 Overview: Per CKD protocol Benign paroxysmal vertigo 03/27/2017 Overview: 09/20/2018 Few times a year About 1 min caused typically by head movement Abdominal pain, right lower quadrant 06/15/2015 01/30/2020 documented as of this encounter (statuses as of 12/14/2023) Immunizations Name Administration Dates Next Due Pneumococcal [...] on file documented as of this encounter Progress Notes * Stephanie Lobo LPN - 12/14/2023 4:10 PM EST BART reviewed with patient, did not have any questions, verbalized understanding. Signed and patientgiven a copy. documented in this encounter Plan of Treatment Upcoming Encounters Date Type Department Care Team (Late st Contact Info) Description 05/06/2024 2:40 PM EDT [facility] [address] [address] [address] Ian Rae MD [...] 01/16/2024 01/16/2023, 10/27 CKD HGB USE SMARTSET 96511 06/09/202406/09, 06/09/2023, 12/09/2022, Additional history exists CKD PHOS USE SMARTSET 68689 06/09/2024 06/09/2023 O2 ASSESSMENT COMPLETED IN PAST [...] Primary documented in this encounter Care Teams Door Frame Assembler Machine Relationship Specialty Start Date End Date Ian Rae MD [address] [place] [address] [address] PCP - General Family Medicine 04/17/23 documented as of this encounter"
--- OUTSIDE RECORDS SUMMARY | 2024-05-05 14:00 | External Medical Summary | Summary of Care ---
Author Name Unknown Organization [facility] Address [address] [facility] [address] Phone [phone] Care Team Providers Care Kiss Setter Hand Name Role Phone Ilsa Rae MD Primary Care Provider [phone] [phone] Reason for Referral * Medication Prior Authorization - Closed Specialty Diagnoses / Procedures Referred By Contcharity t Referred To Contact Diagnoses Chronic pain syndrome Ilsa Rae MD 21 [facility] [place] [address] Referral ID Status Reason Start Date Expiration Date Visits Re quested Visits Authorized [id number] Closed [phone] Reason for Visit * Reason Onset Date Comments Med Request 12/01/202312/06 Encounter Details Date Type Department Care Team (Late st Contact Info) Description 12/01/2023 Telephone [facility] 21 [facility] [place] [address] Ilsa Rae MD 21 [facility] [place] [address] Med Request (12/06) Allergies Active Allergy Reactions Criticality Noted Date Comments Prednisone Nausea/vomiting,Rash 11/05/2015 documented as of this encounter (statuses as of 12/06/2023) Medications Medication Sig Dispensed Refills Start Date [...] as of this encounter (statuses as of 12/06/2023) Active Problems Problem Noted Date Diagnosed Date [...] as of this encounter (statuses as of 12/06/2023) Resolved Problems Problem Noted Date Diagnosed Date Resolved Date Kidney disease, chronic, sta ge III (GFR 30-59 ml/min) 02/03/2020 10/08/2020 Overview: Per CKD protocol Benign paroxysmal vertigo 03/27/2017 Overview: 09/20/2018 Few times a year About 1 min caused typically by head movement Abdominal pain, right lower quadrant 06/15/2015 01/30/2020 documented as of this encounter (statuses as of 12/06/2023) Immunizations Name Administration Dates Next Due Pneumococcal [...] When patient returns call please transfer to [phone] in regards to below message from Dr. [...] mcfp. * Telephone Encounter - Janeth Taylor NRCMA - 12/01/2023 5:05 PM EST Pt is completely out of medicine and pt was told by [facility] to go to [place]. [facility] and therefore would not give pt any medicine. I told pt's , who took over the call, he should try calling [facility] to get this refill. I did ask [...] this was prescribed by Ortho at [facility] (Dr. Esparza). Should reach out to [...] applicable): Quantity requested (if applicable): Preferred pharmacy: [facility] documented in this encounter Plan of Treatment Upcoming Encounters Date Type Department Care Team (Late st Contact Info) Description 05/06/2024 2:40 PM EDT Office Visit Tod Barrios [address] [place] [address] [address] Ilsa Rae MD [address] [place] [address] [address] Scheduled Procedures Name Priority Associated Diagnoses Date/Ti me COLONOSCOPY FLEXIBLE PROXIMAL DIAGNOSTIC Recall History of colon polyps Health Maintenance Due Date Last Done Comments DISCUSS TOBACCO CESSATION (REFER TO SMARTSET #6863) 1945 DXA Scan 1945 COVID-19 Vaccine (#1) [...] 01/16/2024 01/16/2023, 10/27 CKD HGB USE SMARTSET 32413 06/09/202406/09, 06/09/2023, 12/09/2022, Additional history exists CKD PHOS USE SMARTSET 47032 06/09/2024 06/09/2023 O2 ASSESSMENT COMPLETED IN PAST [...] Primary documented in this encounter Care Teams Kiss Setter Hand Relationship Specialty Start Date End Date Ilsa Rae MD [address] [place] [address] [address] PCP - General Family Medicine 04/17/23 documented as of this encounter"
--- OUTSIDE RECORDS SUMMARY | 2024-05-05 14:00 | External Medical Summary | Summary of Care ---
Author Name Unknown Organization [facility] Address [address] [facility] [place] [address] Phone [phone] Care Team Providers Care Cinder Crew Worker Name Role Phone Ilsa Rae MD Primary Care Provider +1 [phone] Reason for Referral * Medication Prior Authorization - Closed Specialty Diagnoses / Procedures Referred By Contcharity t Referred To Contact Diagnoses Chronic pain syndrome Ilsa Rae MD 21 [facility] [place] [address] Referral ID Status Reason Start Date Expiration Date Visits Re quested Visits Authorized [id number] Closed [phone] Reason for Visit * Reason Onset Date Comments Med Request 12/01/2023 Tramadol Encounter Details Date Type Department Care Team (Late st Contact Info) Description 12/01/[address] [place] [address] Ilsa Rae MD 21 [facility] [place] [address] Med Request (Tramadol) Allergies Active Allergy Reactions Criticality Noted Date Comments Prednisone Nausea/vomiting,Rash 11/05/2015 documented as of this encounter (statuses as of 12/04/2023) Medications Medication Sig Dispensed Refills Start Date [...] as of this encounter (statuses as of 12/04/2023) Active Problems Problem Noted Date Diagnosed Date [...] BP meds. Stopped Metoprolol at last appt 3/5/20 Will continue off meds Smokes cigarettes 01/19/2012 [...] as of this encounter (statuses as of 12/04/2023) Resolved Problems Problem Noted Date Diagnosed Date Resolved Date Kidney disease, chronic, sta ge III (GFR 30-59 ml/min) 02/03/2020 10/08/2020 Overview: Per CKD protocol Benign paroxysmal vertigo 03/27/2017 Overview: 09/20/2018 Few times a year About 1 min caused typically by head movement Abdominal pain, right lower quadrant 06/15/2015 01/30/2020 documented as of this encounter (statuses as of 12/04/2023) Immunizations Name Administration Dates Next Due Pneumococcal [...] encounter Miscellaneous Notes * Telephone Encounter - Radha Aguilar LPN [...] have an BART prior to prescribing [facility]. * Telephone Encounter - Janeth Taylor NRCMA - 12/01/2023 5:05 PM EST Pt is completely out of medicine and pt was told by Ortho [facility] to go to [place]. Pt was seen at [facility] was told they would not operate and therefore would not give pt any medicine. I told pt's , who took over the call, he should try [facility] to get this refill. I did ask [...] PDMP, this was prescribed by Ortho at [facility] (Dr. Esparza). Should reach out to them [...] applicable): Quantity requested (if applicable): Preferred pharmacy: [facility] documented in this encounter Plan of Treatment Upcoming Encounters Date Type Department Care Team (Late st Contact Info) Description 05/06/2024 2:40 PM EDT Office Visit [facility] 21 [place] [address] Ilsa Rae MD 21 [place] [address] Scheduled Procedures Name Priority Associated Diagnoses Date/Ti me COLONOSCOPY FLEXIBLE PROXIMAL DIAGNOSTIC Recall History of colon polyps Health Maintenance Due Date Last Done Comments DISCUSS TOBACCO CESSATION (REFER TO SMARTSET #3025) 1945 DXA Scan 1945 COVID-19 Vaccine (#1) [...] 01/16/2024 01/16/2023, 10/27 CKD HGB USE SMARTSET 46584 06/09/202406/09, 06/09/2023, 12/09/2022, Additional history exists CKD PHOS USE SMARTSET 05543 06/09/2024 06/09/2023 O2 ASSESSMENT COMPLETED IN PAST [...] Primary documented in this encounter Care Teams Cinder Crew Worker Relationship Specialty Start Date End Date Ilsa Rae MD 21 [place] [id number] PCP - General Family Medicine 04/17/23 documented as of this encounter"
--- OUTSIDE RECORDS SUMMARY | 2024-05-05 14:01 | External Medical Summary | Summary of Care ---
Author Name Unknown Organization [facility] Address [address] [facility] [address] Phone [phone] Care Team Providers Care Farmer Vegetable Name Role Phone Ian Rae MD Primary Care Provider [phone] [phone] Reason for Visit * Reason Onset Date Comments Referral 08/29/2023 Cyst below tailb one - need Derm Referral - insurance referral. Encounter Details Date Type Department Care Team (Late st Contact Info) Description 08/29/2023 Telephone [facility] 21 [facility] [place] [address] Ian Rae MD [address] [facility] [place] [address] Referral (Cyst below tailbone - need Derm ... Allergies Active Allergy Reactions Criticality Noted Date Comments Prednisone Nausea/vomiting,Rash 11/05/2015 documented as of this encounter (statuses as of 11/28/2023) Medications Medication Sig Dispensed Refills Start Date [...] at bedtime. 30 Tablet 3 08/09/2023 Active documented as of this encounter (statuses as of 11/28/2023) Active Problems Problem Noted Date Diagnosed Date [...] as of this encounter (statuses as of 11/28/2023) Resolved Problems Problem Noted Date Diagnosed Date Resolved Date Kidney disease, chronic, sta ge III (GFR 30-59 ml/min) 02/03/2020 10/08/2020 Overview: Per CKD protocol Benign paroxysmal vertigo 03/27/2017 Overview: 09/20/2018 Few times a year About 1 min caused typically by head movement Abdominal pain, right lower quadrant 06/15/2015 01/30/2020 documented as of this encounter (statuses as of 11/28/2023) Immunizations Name Administration Dates Next Due Pneumococcal [...] encounter Miscellaneous Notes * Telephone Encounter - Ian Rae MD - 08/29/2023 10:32 AM EDT What is the indication? * Telephone Encounter - Alecia Jamison OSA - 08/29/2023 9:58 AM EDT Please send Derm Referral for this pt for their insurance. Thank you. JOSE Liriano documented in this encounter Plan of Treatment Upcoming Encounters Date Type Department Care Team (Late st Contact Info) Description 05/06/2024 2:40 PM EDT Office Visit [facility] [address] [place] [address] Ian Rae [...] 01/16/2024 01/16/2023, 10/27 CKD HGB USE SMARTSET 07791 06/09/202406/09, 06/09/2023, 12/09/2022, Additional history exists CKD PHOS USE SMARTSET 39148 06/09/2024 06/09/2023 O2 ASSESSMENT COMPLETED IN PAST [...] filedocumented as of this encounter Care Teams Farmer Vegetable Relationship Specialty Start Date End Date Ian Rae MD [address] [place] [address] [phone] PCP - General Family Medicine 04/17/23 documented as of this encounter"
--- OUTSIDE RECORDS SUMMARY | 2024-05-05 14:01 | External Medical Summary | Summary of Care ---
Author Name Unknown Organization [facility] Address [address] [place] [address] Phone [phone] Care Team Providers Care Ignition Expert Name Role Phone Ian Rae MD Primary Care Provider +1 -[phone] Reason for Visit * Reason Onset Date Comments Med Request 12/01/2023 Tramadol Encounter Details Date Type Department Care Team (Late st Contact Info) Description 12/01/2023 Telephone [facility] 21 [facility] [address] Ian Rae MD 21 [facility] [place] [address] Med Request (Tramadol) Allergies Active Allergy [...] or chew. 30 Capsule 5 10/25/2023 Active documented as of this encounter (statuses [...] encounter Miscellaneous Notes * Telephone Encounter - Janeth Taylor NRCMA - 12/01/2023 5:05 PM EST Pt is completely out of medicine and pt was told by [facility] to go to [place]. [facility] and therefore would not give pt any medicine. I told pt's , who took over the call, he should try calling [facility] to get this refill. I did [...] is the weekend. * Telephone Encounter - Ian Rae MD - 12/01/2023 4:44 PM EST Per PDMP, this was prescribed by Ortho at [facility] (Dr. Esparza). Should reach out to them [...] applicable): Quantity requested (if applicable): Preferred pharmacy: [facility] documented in this encounter Plan of Treatment Upcoming Encounters Date Type Department Care Team (Late st Contact Info) Description 05/06/2024 2:40 PM EDT [facility] [address] [place] [address] Ian Rae MD [address] [place] [address] [phone] Scheduled Procedures Name Priority Associated Diagnoses Date/Ti me COLONOSCOPY FLEXIBLE PROXIMAL DIAGNOSTIC Recall History of colon polyps Health Maintenance Due Date Last Done Comments DISCUSS TOBACCO CESSATION (REFER TO SMARTSET #3293) 1945 DXA Scan 1945 COVID-19 Vaccine (#1) [...] 01/16/2024 01/16/2023, 10/27 CKD HGB USE SMARTSET 83729 06/09/202406/09, 06/09/2023, 12/09/2022, Additional history exists CKD PHOS USE SMARTSET 71468 06/09/2024 06/09/2023 O2 ASSESSMENT COMPLETED IN PAST [...] filedocumented as of this encounter Care Teams Ignition Expert Relationship Specialty Start Date End Date Ian Rae MD [facility] [place] [address] PCP - General Family Medicine 04/17/23 documented as of this encounter"
--- OUTSIDE RECORDS SUMMARY | 2024-05-05 14:01 | External Medical Summary | Continuity of Care Document ---
Author Name Unknown Organization [facility] [address] Address [address] [facility] [address] [place] [phone] Care Team Providers Care Manager File Name Role Phone Ian Rae Primary Care Physician [phone] Encounter [facility] [id number] Date(s): 11/16/23 - 11/16/23 [facility] [address] [facility] [address], [address] [place] [address] [phone] Encounter Diagnosis Other secondary scoliosis, thoracolumbar region(Discharge Diagnosis) - 11/16/23 Discharge Disposition: Home or Self Care Attending Physician: MD Skip, Kyrie A Allergies, Adverse Reactions, Alerts Substance Reaction Severity [...] ringing in your ears., Indication: pain, Pharmacy: [facility] Start Date: 11/11/22 Stop Date: 12/11/22 Status: [...] Start Date: 04/01/13 Status: Ordered Mental Status 11/16/23 Barriers to Learning one year None evide nt Mandatory Health Literacy Documentation Yes Health Literacy Communication Barriers N ever Primary Language Micronesian Problem List Condition Confirmation Course Effective Dates Status Health St atus Informant Back pain Confirmed Active Benign Essential Hypertension Confirmed Active Chronic arthritis Confirmed Active Depression Confirmed Active S/P laminectomy with spinal fusion Confirmed Active Hip pain Confirmed Active Tobacco abuse Confirmed Active Diagnosis Diagnosis Type Effective Dates Health Status Clinical Service Informant Other secondary scoliosis, thoracolumbar region Discharge Diagnosis 11/16/23 Procedures Procedure Date Related Diagnosis Body Site Status Injection 1 12/20/22 Completed Cataract surgery Complete d L5 posterior spinal fusion w ith instrumentation, L2-3, L3-4, L4-5 Laminectomy with local autograft infuse and allograft 2 Completed Neck Completed 1TPI Results Radiology Reports * Exam Date Time Procedure Performing Provider Status 11/16/23 2:59 PM XR Spine Lumbosacral 2 or 3 Views Falguni Mcdonald; Final Notes: (XR Spine Lumbosacral 2 or 3 Views) Reason For Exam: low back pain XR Spine Lumbosacral 2 or 3 Views EXAMINATION: XR Spine Lumbosacral 2 or 3 Views CLINICAL HISTORY: M54.50: Low back pain, unspecified; M54.50: Low back pain, unspecified; low back pain COMPARISON: Lumbosacral spine radiographs dated 05/26/2022 and 12/14/2018. 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 Similar postsurgical changes status post posterior spinal fusion with pedicle screws and rods spanning L2-5. The construct is intact. No periprosthetic lucency or osseous destructive changes. Associated laminectomy defects span these levels. Similar focal lytic or sclerotic curvature is seen with its apex at L1-2. Vertebral body heights are unchanged. No acute fracture is appreciated. There is similar exaggerated kyphosis at the thoracolumbar junction. No significant spondylolisthesis or subluxation. There is been interval development of now moderate to severe disc height loss centered at T12-L1. The endplates appear irregular with associated volume loss and fragmentation, asymmetrically greatestanteriorly. Diffuse degenerative disc disease is otherwise seen and grossly unchanged from the mostrecent radiograph, appearing moderate to severe at the remaining lumbar levels. IMPRESSION: 1. Asymmetric progression in the space narrowing, osseous fragmentation in volume loss centered at the anterior T12-L1 disc space. Although nonspecific, findings raise the possibility of discitis/osteomyelitis or neuropathic change (i.e. spinal neuroarthropathy). 2. Intact L2-L5 posterior spinal fusion with associated laminectomies. No radiographic evidence forpostsurgical complication. Workstation ID: [id number] Final Dictated by:MD Borges Anthony E Dictated DT/TM:11/16/2023 5:19 Signed by:MD Borges Anthony E Signed (Electronic Signature):11/16/2023 5:18 p Social History Social History Type Response Smoking Status Current every day li ght smoker Sex Female Ortho Outpt Note * MD Skip, Kyrie Mcrae: PERFORM Event Display: Ortho Outpt Note Authored Date: [id number] Name:CLAYTON WALLIS Patient Number:[id number] :1945 Date of Service:11/16/2023 Tsyon seen in clinic today with Dr. Jose Espana. I saw the patient, evaluated them, and formulated the assessment of plan. Please see a copy of Dr. Espana's note for details of theencounter. Electronic Signature on File Electronically Reviewed/Signed by: Kyrie Valdivia MD Author Signature Dt/Tm:11/16/2023 07:04 PM Division of Orthopaedics MONISHA Patient Care team information Care Team Personnel Name: KERI Casanova Dean E Position: Nurse Pract - Orthopaedic Surg Member Role: Lifetime Relationship Address: Address: [address] [place] [address] [place] Name: MD Butch, Ian Toro Position: Referring DIRECT Member Role: Primary Care Provider Address: Address: [address] [place] [address] [place] Name: MD Ely, Jaime S Position: Physician - Hem/Onc Member Role: Lifetime Relationship Address: Address: [address] [place] [address] Care Team Related Persons Name: LORIN OBRIEN Address: [facility] [address], [place] [id number]
--- OUTSIDE RECORDS SUMMARY | 2024-05-05 14:01 | External Medical Summary | Summary of Care ---
Author Name Unknown Organization [facility] Address [address] [facility] [place] [address] Phone [phone] Care Team Providers Care Fuller Brush Worker Name Role Phone Ian Rae MD Primary Care Provider +1 [phone] Reason for Visit * Reason Onset Date Comments Med Request 12/01/2023 Tramadol Encounter Details Date Type Department Care Team (Late st Contact Info) Description 12/01/2023 Telephone [facility] 21 [facility] [place] [address] Ian Rae MD 21 [facility] [place] [address] Med Request (Tramadol) Allergies Active Allergy [...] encounter Miscellaneous Notes * Telephone Encounter - Marci Rinaldi RN [...] applicable): Quantity requested (if applicable): Preferred pharmacy: [facility] documented in this encounter Plan of Treatment Upcoming Encounters Date Type Department Care Team (Late st Contact Info) Description 05/06/2024 2:40 PM EDT [facility] [place] [address] Ian Rae MD [address] [place] [phone] Scheduled Procedures Name Priority Associated Diagnoses Date/Ti me COLONOSCOPY FLEXIBLE PROXIMAL DIAGNOSTIC Recall History of colon polyps Health Maintenance Due Date Last Done Comments DISCUSS TOBACCO CESSATION (REFER TO SMARTSET #0676) 1945 DXA Scan 1945 COVID-19 Vaccine (#1) [...] 01/16/2024 01/16/2023, 10/27 CKD HGB USE SMARTSET 83815 06/09/202406/09, 06/09/2023, 12/09/2022, Additional history exists CKD PHOS USE SMARTSET 63272 06/09/2024 06/09/2023 O2 ASSESSMENT COMPLETED IN PAST [...] filedocumented as of this encounter Care Teams Fuller Brush Worker Relationship Specialty Start Date End Date Ian Rae MD 21 [facility] [place] [phone] PCP - General Family Medicine 04/17/23 documented as of this encounter"
--- OUTSIDE RECORDS SUMMARY | 2024-05-05 14:01 | External Medical Summary | Summary of Care ---
Author Name Unknown Organization [facility] Address [address] [place] [address] Phone [phone] Care Team Providers Care Field Party Manager Name Role Phone Ian Rae MD Primary Care Provider [phone] Reason for Visit * Reason Onset Date Comments Med Request 12/01/2023 Tramadol Encounter Details Date Type Department Care Team (Late st Contact Info) Description 12/01/2023 Telephone [facility] [address] [facility] [place] [address] Ian Rae MD [address] [facility] [place] [address] Med Request (Tramadol) Allergies Active Allergy [...] PDMP, this was prescribed by Ortho at [facility] (Dr. Esparza). Should reach out to them [...] applicable): Quantity requested (if applicable): Preferred pharmacy: [facility] documented in this encounter Plan of Treatment Upcoming Encounters Date Type Department Care Team (Late st Contact Info) Description 05/06/2024 2:40 PM EDT Office Visit [facility] [address] [place] [phone] Ian Rae MD [address] [facility] [place] [address] Scheduled Procedures Name Priority Associated Diagnoses Date/Ti me COLONOSCOPY FLEXIBLE PROXIMAL DIAGNOSTIC Recall History of colon polyps Health Maintenance Due Date Last Done Comments DISCUSS TOBACCO CESSATION (REFER TO SMARTSET #9258) 1945 DXA Scan 1945 COVID-19 Vaccine (#1) [...] 01/16/2024 01/16/2023, 10/27 CKD HGB USE SMARTSET 57215 06/09/202406/09, 06/09/2023, 12/09/2022, Additional history exists CKD PHOS USE SMARTSET 97004 06/09/2024 06/09/2023 O2 ASSESSMENT COMPLETED IN PAST [...] filedocumented as of this encounter Care Teams Field Party Manager Relationship Specialty Start Date End Date Ian Rae MD [address] [facility] [place] [phone] PCP - General Family Medicine 04/17/23 documented as of this encounter"
--- OUTSIDE RECORDS SUMMARY | 2024-05-05 14:01 | External Medical Summary | Summary of Care ---
Author Name Unknown Organization [facility] Address [address] [facility] [address] Phone [phone] Care Team Providers Care Parking Regulation Enforcement Officer Name Role Phone Ian Rae MD Primary Care Provider [phone] Reason for Visit * Reason Onset Date Comments Follow Up 11/08/202311/08 Encounter Details Date Type Department Care Team (Late st Contact Info) Description 11/08/2023 2:00 PM EST Scheduled Telephone Ancillary 1st Floor, [place] [address] [place] [address] [place], Nurse Follow Up Phone Call Schedule [address] [place] [address] Arrived Allergies Active Allergy Reactions Criticality Noted Date Comments Prednisone Nausea/vomiting,Rash 11/05/2015 documented as of this encounter (statuses as of 11/08/2023) Medications Medication Sig Dispensed Refills Start Date [...] as of this encounter (statuses as of 11/08/2023) Active Problems Problem Noted Date Diagnosed Date [...] as of this encounter (statuses as of 11/08/2023) Resolved Problems Problem Noted Date Diagnosed Date Resolved Date Kidney disease, chronic, sta ge III (GFR 30-59 ml/min) 02/03/2020 10/08/2020 Overview: Per CKD protocol Benign paroxysmal vertigo 03/27/2017 Overview: 09/20/2018 Few times a year About 1 min caused typically by head movement Abdominal pain, right lower quadrant 06/15/2015 01/30/2020 documented as of this encounter (statuses as of 11/08/2023) Immunizations Name Administration Dates Next Due Pneumococcal [...] encounter Miscellaneous Notes * Telephone Encounter - Yamileth Cm LPN - 11/08/2023 9:59 AM EST The patient was contacted in regards to their recent: Appointment with clinic provider Provider Dr. Rae, 2 week(s) ago, regarding Pain. How are your symptoms? Pt reports improvement with pain since start of Cymbalta, feels current doseis sufficient, pt is able to function better and voiced no concerns. documented in this encounter Plan of Treatment Upcoming Encounters Date Type Department Care Team (Late st Contact Info) Description 12/06/2023 1:30 PM EST Nutrition Services Nutrition, [place] [address] [place] [address] Minnie Hopkins RDN [address] [place] [phone] 05/06/2024 2:40 PM EDT Office Visit [facility], [place] [address] [place] [phone] Ian Rae MD [address] [place] [address] Scheduled Procedures Name Priority Associated Diagnoses Date/Ti me COLONOSCOPY FLEXIBLE PROXIMAL DIAGNOSTIC Recall History of colon polyps Health Maintenance Due Date Last Done Comments DISCUSS TOBACCO CESSATION (REFER TO SMARTSET #6873) 1945 DXA Scan 1945 COVID-19 Vaccine (#1) [...] 01/16/2024 01/16/2023, 10/27 CKD HGB USE SMARTSET 99792 06/09/202406/09, 06/09/2023, 12/09/2022, Additional history exists CKD PHOS USE SMARTSET 97192 06/09/2024 06/09/2023 O2 ASSESSMENT COMPLETED IN PAST [...] filedocumented as of this encounter Care Teams Parking Regulation Enforcement Officer Relationship Specialty Start Date End Date Ian Rae MD [address] [place] [phone] PCP - General Family Medicine 04/17/23 documented as of this encounter"
[2024-05-05] MEDS: ASPIRIN 81 MG CHEW PO STA (14:18)
[2024-05-05 14:21] LABS: Basophils # (auto) 0.03 K/uL (0.00-0.20); Basophils % (auto) 0.4 %; Eosinophils % (auto) 1.4 %; Hematocrit (blood only) 43.8 % (37.0-47.0); Hemoglobin 14.8 g/dl (12.0-16.0); Immature Granulocytes # (auto) 0.01 K/uL (0.01-0.20); Immature Granulocytes % (auto) 0.1 %; Lymphocytes # (auto) 1.16 K/uL (1.20-3.40); Lymphocytes % (auto) 16.8 %; Mean Corpuscular Hemoglobin 33.8 pg (25.0-34.0); Mean Corpuscular Hgb Conc 33.8 g/dL (32.0-36.0); Mean Platelet Volume 10.7 fL (9.4-12.4); Monocytes # (auto) 0.61 K/uL (0.11-0.59); Monocytes % (auto) 8.8 %; Neutrophils # (auto) 4.99 K/uL (1.40-6.50); Neutrophils % (auto) 72.5 %; Platelet Count 281 K/uL (130-400); RDW Coefficient of Variation 14.6 % (11.5-14.5); RDW Standard Deviation 54.2 fL (36.4-46.3); Red Blood Count 4.38 M/uL (4.20-5.40)
--- NOTE | 2024-05-05 14:24 | Emergency Department Note ---
History of Present Illness General Chief complaint: Chest Pain Stated complaint: chest burning, pain in arms, Time Seen by Provider: 05/05/24 14:02 Source: patient, family ( who is at the bedside), RN notes reviewed and old records reviewed (11/08/23-orthopedics outpatient visit for back pain) Mode of arrival: ambulatory Limitations: no limitations History of Present Illness This patient is a 78-year-old female who comes in after having episode of chest burning. She says she has had this off and on for couple weeks she was driving home from [place] to [place] today and said it started about an hour and a half ago it was different today that went into her arm she did have some nausea as well. No shortness of breath or pleurisy no fall or trauma no history of cardiac disease. She does have a history of hypertension and she also is a heavy smoker. No fall or trauma or injury. She is on pain medication for back and did start Suboxone a couple days ago. Home Medications Medication Instructions Recorded Confirmed Type aspirin 81 mg tablet,delayed 162 mg PO DAILY 05/05/24 05/05/24 History release celecoxib 50 mg capsule 50 mg PO BID 05/05/24 05/05/24 History cyanocobalamin (vitamin B-12) 500 500 mcg PO DAILY 05/05/24 05/05/24 History mcg tablet duloxetine 30 mg capsule,delayed 30 mg PO DAILY 05/05/24 05/05/24 History release gabapentin 100 mg capsule 100 mg PO TID 05/05/24 05/05/24 History magnesium 250 mg tablet 250 mg PO DAILY 05/05/24 05/05/24 History mirtazapine 7.5 mg tablet 7.5 mg PO HS 05/05/24 05/05/24 History Allergies Allergy/AdvReac Type Severity Reaction Status Date / Time prednisone Allergy Unknown . Verified 10/12/23 14:13 Past Med/Surg History Problem List (Updated 05/05/24 @ 16:48 by Pb Christianson MD) Elevated troponin (Acute) Underweight Tobacco abuse PVC (premature ventricular contraction) (Acute) Acute ST elevation myocardial infarction (STEMI) (Acute) Heavy tobacco smoker (Acute) Chest pain (Acute) Medical History (Updated 05/05/24 @ 16:48 by Pb Christianson MD) Chronic pain syndrome COPD (chronic obstructive pulmonary disease) HLD (hyperlipidemia) Hypertension Surgical History S/P tubal ligation History of back surgery History of neck surgery S/P cataract surgery Family History Father Myocardial infarction Coronary heart disease Social History (Updated 05/05/24 @ 15:32 by Erica Brewster PA-C) Smoking Status: Current every day smoker Hx Alcohol Use: No Hx Substance Use: No Preferred Language: Ivorian Feels Safe at Home: Yes Review of Systems A total of 10 systems reviewed and were otherwise negative Physical Exam Vital Signs Vital Signs - 24 hr 05/05/24 13:54 05/05/24 14:07 05/05/24 14:07 Temperature 36.6 C Temperature Source Temporal Artery Scan Pulse Rate 74 Pulse Rate [Apical] 81 Pulse Rhythm Respiratory Rate 18 22 22 Respiratory Effort / Characteristics Respiratory Depth Normal Respiratory Pattern Blood Pressure 157/83 H Blood Pressure [Right Arm] Blood Pressure Mean 107 Blood Pressure Mean [Right Arm] Blood Pressure Position [Right Arm] Pulse Oximetry 98 98 99 Oxygen Delivery Method Room Air Room Air Room Air Sepsis Recent Fever Within 48 Hours No Sepsis New/Unexplained Change in Mental Status N/A Sepsis Action Taken by Nursing No Action Required 05/05/24 14:17 05/05/24 14:19 05/05/24 14:19 Temperature Temperature Source Pulse Rate 79 68 Pulse Rate [Apical] 78 Pulse Rhythm Regular Respiratory Rate 20 18 18 Respiratory Effort / Characteristics Respiratory Depth Normal Respiratory Pattern Blood Pressure 138/88 Blood Pressure [Right Arm] 163/72 H Blood Pressure Mean 104 Blood Pressure Mean [Right Arm] 102 Blood Pressure Position [Right Arm] Sitting Pulse Oximetry 96 98 99 Oxygen Delivery Method Room Air Room Air Room Air Sepsis Recent Fever Within 48 Hours Sepsis New/Unexplained Change in Mental Status Sepsis Action Taken by Nursing 05/05/24 14:21 05/05/24 14:33 Temperature Temperature Source Pulse Rate 89 Pulse Rate [Apical] 83 Pulse Rhythm Respiratory Rate 22 Respiratory Effort / Characteristics Non-Labored Respiratory Depth Normal Respiratory Pattern Regular Blood Pressure Blood Pressure [Right Arm] 170/75 H Blood Pressure Mean Blood Pressure Mean [Right Arm] 106 Blood Pressure Position [Right Arm] Pulse Oximetry 98 Oxygen Delivery Method Room Air Sepsis Recent Fever Within 48 Hours Sepsis New/Unexplained Change in Mental Status Sepsis Action Taken by Nursing General: Well developed well nourished slender older female who in no acute distress, breathing comfortably on room air. Normal speech HEENT: Normal cephalic atraumatic. Pupils are equal round and reactive to light. Extraocular movements are intact. Oropharynx is pink with moist mucous membranes. No swelling of the mouth lips or tongue. Neck: Supple with a midline trachea. No meningeal signs or stiffness, no JVD or bruits. No Stridor. Chest: Clear to auscultation bilaterally. No wheezes or rhonchi. No increased work of breathing. Heart: Regular rate and rhythm without murmurs or gallops. Abdomen: Soft nontender, nondistended without rebound guarding or rigidity. Extremities: No cyanosis clubbing or edema. No calf tenderness or assymetry Spine/Back. Non tender to palpation. No CVA tenderness Skin: Good turgor without rashes. Neurologic exam: Cranial nerves two through 12 are intact. Motor and sensation are intact and symmetrical throughout. Course Administered Medications Nitroglycerin (Nitroglycerin Sl 0.4 Mg/Tab Tab) 0.4 mg SL Q5M PRN PRN Reason: Chest Pain Stop: 06/04/24 14:09 Last Admin: 05/05/24 14:29 Dose: 0.4 mg Documented By: MMG Discontinued Medications Aspirin (Aspirin 81 Mg Chew) 324 mg PO NOW STA Stop: 05/05/24 14:11 Last Admin: 05/05/24 14:18 Dose: 324 mg Documented By: MMG Atropine Sulfate (Atropine Sulfate 0.1 Mg/Ml 10ml Syr) Confirm Administered Dose 1 mg IV .STK-MED ONE Stop: 05/05/24 15:25 Last Admin: 05/05/24 15:49 Dose: 0.5 mg Documented By: ROMANA Clopidogrel Bisulfate (Clopidogrel Bisulfate 300 Mg Tab) Confirm Administered Dose 600 mg .ROUTE .STK-MED ONE Stop: 05/05/24 15:48 Last Admin: 05/05/24 15:49 Dose: 600 mg Documented By: ROMANA Diphenhydramine HCl (Diphenhydramine 50 Mg/Ml Vial) Confirm Administered Dose 50 mg .ROUTE .STK-MED ONE Stop: 05/05/24 14:56 Last Admin: 05/05/24 15:07 Dose: 25 mg Documented By: ROMANA Eptifibatide (Eptifibatide 2 Mg/Ml 10 Ml Vial ([facility] Use Only)) Confirm Administered Dose 20 mg IV .STK-MED ONE Stop: 05/05/24 15:18 Last Admin: 05/05/24 15:50 Dose: 6.8 ml Documented By: ROMANA Fentanyl Citrate (Fentanyl Citrate Pf 100 Mcg/2 Ml Vial) Confirm Administered Dose 100 mcg .ROUTE .STK-MED ONE Stop: 05/05/24 14:33 Last Increment: 05/05/24 15:52 Dose: 50 mcg Documented By: ROMANA Heparin Sodium (Porcine) (Heparin (Porcine) 1000 Unit/Ml 10 Ml ([facility] Use Only)) Confirm Administered Dose 10,000 units .ROUTE .STK-MED ONE Stop: 05/05/24 14:33 Last Admin: 05/05/24 15:52 Dose: 8,000 units Documented By: ROMANA Heparin Sodium (Porcine) (Heparin (Porcine) 1000 Unit/Ml 10 Ml ([facility] Use Only)) Confirm Administered Dose 10,000 units .ROUTE .ST-MED ONE Stop: 05/05/24 14:38 Last Admin: 05/05/24 15:50 Dose: 8,000 units Documented By: ROMANA Heparin Sodium/Sodium Chloride (Heparin In Nss Infusion 1000 Unit/500 Ml (2 U/Ml) Bag) Confirm Administered Dose 3,000 units IV .STK-MED ONE Stop: 05/05/24 14:33 Last Admin: 05/05/24 15:06 Dose: 3,000 units Documented By: ROMANA Ioversol (Optiray 350) Confirm Administered Dose 1 ml .ROUTE .ST-MED ONE Stop: 05/05/24 14:34 Last Admin: 05/05/24 15:51 Dose: 110 ml Documented By: ROMANA Midazolam HCl (Midazolam Hcl 1 Mg/Ml 2ml Vial) Confirm Administered Dose 2 mg .ROUTE .STK-MED ONE Stop: 05/05/24 14:33 Last Admin: 05/05/24 15:51 Dose: 2 mg Documented By: ROMANA Nicardipine HCl (Nicardipine Hcl Inj 2.5 Mg/Ml 10 Ml Amp) Confirm Administered Dose 25 mg .ROUTE .STK-MED ONE Stop: 05/05/24 14:33 Last Admin: 05/05/24 15:06 Dose: 25 mg Documented By: ROMANA Nicardipine HCl (Nicardipine Hcl Inj 2.5 Mg/Ml 10 Ml Amp) Confirm Administered Dose 25 mg .ROUTE .STK-MED ONE Stop: 05/05/24 14:38 Last Admin: 05/05/24 15:07 Dose: 25 mg Documented By: ROMANA Nitroglycerin/Dextrose (Nitroglycerin/D5w 100mcg/Ml 20ml Syr) Confirm Administered Dose 2,000 mcg .ROUTE .STK-MED ONE Stop: 05/05/24 14:34 Last Admin: 05/05/24 15:07 Dose: 2,000 mcg Documented By: ROMANA Critical Care Time Critical Care Time: Yes Total Critical Care Time: 30 Due to the patient's chest pain with EKG changes concerning for STEMI, need for frequent reassessment, rapid care, consultation with cardiology and the hospitalist, discussions with the patient and family, I have personally spent greater than 30 minutes of critical care time in the direct management of this patient. This includes bedside care, interpretation of diagnostic studies, and testing, discussion with consultants, patient, and family members, and other required patient management activities. This 30 minutes is in excess of all separately billable procedures. Medical Decision Making Differential Diagnosis Acute coronary syndrome, arrhythmia, CHF, pneumonia, pneumothorax, GERD Medical Records Attestation: I reviewed the patient's medical records. Home Medications Current Medication List: was personally reviewed by me Laboratory Data Attestation: I reviewed the patient's lab results. 05/05/24 14:13 05/05/24 14:13 Lab Results 05/05/24 05/05/24 05/05/24 Range/Units 14:13 14:18 15:24 WBC 6.90 (4.8-10.8) K/ul RBC 4.38 (4.20-5.40) M/uL Hgb 14.8 (12.0-16.0) g/dl POC Hgb 14.6 (12.0-16.0) g/dl Hct 43.8 (37.0-47.0) % POC Hct 43 (37-47) % MCV 100.0 (80.0-100.0) fL MCH 33.8 (25.0-34.0) pg MCHC 33.8 (32.0-36.0) g/dL RDW Std Deviation 54.2 H (36.4-46.3) fL RDW Coeff of Regina 14.6 H (11.5-14.5) % Plt Count 281 (130-400) K/uL MPV 10.7 (9.4-12.4) fL Immature Gran % (Auto) 0.1 % Neut % (Auto) 72.5 % Lymph % (Auto) 16.8 % Tyler % (Auto) 8.8 % Eos % (Auto) 1.4 % Baso % (Auto) 0.4 % Neut # (Auto) 4.99 (1.40-6.50) K/uL Lymph # (Auto) 1.16 L (1.20-3.40) K/uL Tyler # (Auto) 0.61 H (0.11-0.59) K/uL Eos # (Auto) 0.10 (0.00-0.50) K/uL Baso # (Auto) 0.03 (0.00-0.20) K/uL Immature Gran # (Auto) 0.01 (0.01-0.20) K/uL PT 10.3 (9.0-12.0) Seconds INR 0.9 (0.9-1.1) APTT 24 (21-31) Seconds PTT Ratio 0.9 Activ Coag Time Kaolin 293 H (94-140) SECONDS POC Sodium 142 (135-144) mmol/L Sodium 142 (136-145) mmol/L POC Potassium 4.2 (3.3-5.0) mmol/L Potassium 4.2 (3.5-5.1) mmol/L POC Chloride 107 (101-112) mmol/L Chloride 108 H (98-107) mmol/L Carbon Dioxide 26 (21-32) mmol/L POC Total CO2 27 (24-31) mmol/L Anion Gap 8 (3-11) POC Anion Gap 13.0 L (16-25) mmol/L POC BUN 30 H (7-18) mg/dl BUN 31 H (6-23) mg/dl Creatinine 1.01 (0.6-1.2) mg/dl POC Creatinine 1.0 (0.6-1.3) mg/dl Est Cr Clr Drug Dosing 27.0 ml/min Est GFR ( Amer) 62.2 ml/min Est GFR (Non-Af Amer) 53.7 ml/min BUN/Creatinine Ratio 30.7 H (10-20) Glucose 102 H (70-99(Fasting)) mg/dl POC Glucose (other) 100 H (70-99) mg/dl Calcium 10.4 H (8.6-10.3) mg/dl POC Ioniz Calcium April 1.24 (1.12-1.32) mmol/l Total Bilirubin 0.6 (0.2-1.0) mg/dl AST 24 (13-39) U/L ALT 18 (7-52) U/L Alkaline Phosphatase 58 (34-104) U/L Troponin I High Sens 119.6 H* (0-14) pg/ml Total Protein 7.2 (6.0-8.3) gm/dl Albumin 4.6 (3.4-5.0) gm/dl Globulin 2.6 (2.5-4.0) gm/dl Albumin/Globulin Ratio 1.8 (0.9-2) Lipase 49 (11-82) U/L 05/05/24 Range/Units 15:49 WBC (4.8-10.8) K/ul RBC (4.20-5.40) M/uL Hgb (12.0-16.0) g/dl POC Hgb (12.0-16.0) g/dl Hct (37.0-47.0) % POC Hct (37-47) % MCV (80.0-100.0) fL MCH (25.0-34.0) pg MCHC (32.0-36.0) g/dL RDW Std Deviation (36.4-46.3) fL RDW Coeff of Regina (11.5-14.5) % Plt Count (130-400) K/uL MPV (9.4-12.4) fL Immature Gran % (Auto) % Neut % (Auto) % Lymph % (Auto) % Tyler % (Auto) % Eos % (Auto) % Baso % (Auto) % Neut # (Auto) (1.40-6.50) K/uL Lymph # (Auto) (1.20-3.40) K/uL Tyler # (Auto) (0.11-0.59) K/uL Eos # (Auto) (0.00-0.50) K/uL Baso # (Auto) (0.00-0.20) K/uL Immature Gran # (Auto) (0.01-0.20) K/uL PT (9.0-12.0) Seconds INR (0.9-1.1) APTT (21-31) Seconds PTT Ratio Activ Coag Time Kaolin 293 H (94-140) SECONDS POC Sodium (135-144) mmol/L Sodium (136-145) mmol/L POC Potassium (3.3-5.0) mmol/L Potassium (3.5-5.1) mmol/L POC Chloride (101-112) mmol/L Chloride (98-107) mmol/L Carbon Dioxide (21-32) mmol/L POC Total CO2 (24-31) mmol/L Anion Gap (3-11) POC Anion Gap (16-25) mmol/L POC BUN (7-18) mg/dl BUN (6-23) mg/dl Creatinine (0.6-1.2) mg/dl POC Creatinine (0.6-1.3) mg/dl Est Cr Clr Drug Dosing ml/min Est GFR ( Amer) ml/min Est GFR (Non-Af Amer) ml/min BUN/Creatinine Ratio (10-20) Glucose (70-99(Fasting)) mg/dl POC Glucose (other) (70-99) mg/dl Calcium (8.6-10.3) mg/dl POC Ioniz Calcium April (1.12-1.32) mmol/l Total Bilirubin (0.2-1.0) mg/dl AST (13-39) U/L ALT (7-52) U/L Alkaline Phosphatase (34-104) U/L Troponin I High Sens (0-14) pg/ml Total Protein (6.0-8.3) gm/dl Albumin (3.4-5.0) gm/dl Globulin (2.5-4.0) gm/dl Albumin/Globulin Ratio (0.9-2) Lipase (11-82) U/L Imaging Data Attestation: I personally reviewed and interpreted this imaging study as follows: My Impression: Chest x-rayno acute infiltrate, failure, pneumothorax. Normal aortic knob Radiologist's Impression: Chest X-Ray 05/05/24 14:10 SINGLE VIEW CHEST CLINICAL HISTORY: Atypical chest pain FINDINGS: An AP, portable, upright chest radiograph is compared to study dated 06/03/2015. The heart is mildly enlarged noting atherosclerotic calcification of the thoracic aorta. The pulmonary vasculature is noncongested. Chronic interstitial thickening is similar to previous. There is mild bibasilar scarring/atelectasis. No airspace consolidation or large pleural effusion is identified. The skeletal structures are osteopenic. The bony thorax is grossly intact. Fusion hardware is seen in the lumbar spine. IMPRESSION: Mild cardiomegaly with no active disease in the chest. ACT 112: Negative or not required by law. Electronically signed by: Brandyn Mcgowan M.D. 05/05/2024 2:24 PM ECG Data Attestation: I personally reviewed and interpreted this ECG as follows: Indication: + chest pain Rate (beats per minute): 67 Rhythm: + normal sinus ECG Intervals/blocks: + Normal QRS, + Normal QT and + Normal TX ECG [place]: + Normal ECG ST segments: + ST depression (Laterally) and + ST elevation (Inferiorly) ECG Findings: no PACs or no PVCs Comparison ECG Date: from (2014) Additional Comments: EKG #2: Normal sinus rhythm rate 70 she continues to have changes concerning for STEMI as there is elevations inferiorly and reciprocal changes laterally and the ST and T wave segments MDM Narrative This patient comes in as scribed above she had episode of chest burning and arm burning as well. She denies shortness of breath. I saw her promptly upon arrival her initial EKG was very concerning for STEMI as she has elevation and depression that quickly repeated and has similar changes. I did call the heart alert. Chest x-ray was obtained and blood work was obtained in the meantime and she has no congestive heart failure changes and nothing shows pneumothorax. Her i-STAT was normal and she has normal renal function. I ordered aspirin 324 mg chewable she had here also ordered sublingual nitro she initially told me she was having no more pain or burning but then said she was later so she did receive a nitro. Dr. Yung from the [facility] did promptly arrive. He is going to take her to the [facility] for further treatment and evaluation. I have also notified and discussed the case with Dr. Castañeda from the the [facility] hospitalist team as they will be the admitting team given that she has a [facility] primary doctor. Note that the patient's troponin did come back significantly elevated after she was already in the cardiac [facility] Continuous cardiac monitoring: Orders were placed in EMR for continuous framer: Upon my evaluation she was noted to be in normal sinus rhythm with a rate of 83. She does have occasional PVCs on the monitor Impression & Plan Acute ST elevation myocardial infarction (STEMI), Chest pain, Heavy tobacco smoker, PVC (premature ventricular contraction), Elevated troponin Discharge Plan Visit Data Chief Complaint: Chest Pain Stated Complaint: chest burning, pain in arms, ED Provider: Pb Christianson Discharge Problem: Acute ST elevation myocardial infarction (STEMI), Chest pain, Heavy tobacco smoker, PVC (premature ventricular contraction), Elevated troponin Discharge Problem: Acute ST elevation myocardial infarction (STEMI) Qualifiers: Involved coronary artery: unspecified coronary artery Qualified Code(s): I21.3 - ST elevation (STEMI) myocardial infarction of unspecified site Chest pain Qualifiers: Chest pain type: precordial pain Qualified Code(s): R07.2 - Precordial pain
--- NOTE | 2024-05-05 14:25 | XRay Report ---
SINGLE VIEW CHEST CLINICAL HISTORY: Atypical chest pain FINDINGS: An AP, portable, upright chest radiograph is compared to study dated 06/03/2015. The heart is mildly enlarged noting atherosclerotic calcification of the thoracic aorta. The pulmonary vasculatur e is noncongested. Chronic interstitial thickening is similar to previous. There is mild bibasilar sc arring/atelectasis. No airspace consolidation or large pleural effusion is identified. The skeletal s tructures are osteopenic. The bony thorax is grossly intact. Fusion hardware is seen in the lumbar sp ine. IMPRESSION: Mild cardiomegaly with no active disease in the chest. ACT 112: Negative or not required by law. Electronically signed by: Brandyn Mcgowan M.D. 05/05/2024 2:24 PM
[2024-05-05] MEDS: NITROGLYCERIN SL 0.4 MG/TAB TAB SL PRN (14:29)
[2024-05-05 14:30] LABS: iSTAT Hemoglobin 14.6 g/dl (12.0-16.0); iSTAT Ionized Calcium 1.24 mmol/l (1.12-1.32); iSTAT Potassium 4.2 mmol/L (3.3-5.0)
[2024-05-05 14:33] LABS: INR 0.9 (0.9-1.1); Partial Thromboplastin Ratio 0.9; Partial Thromboplastin Time 24 Seconds (21-31); Prothrombin Time 10.3 Seconds (9.0-12.0)
[2024-05-05 14:42] LABS: Albumin Globulin Ratio 1.8 (0.9-2); Albumin Level 4.6 gm/dl (3.4-5.0); BUN Creatinine Ratio 30.7 (10-20); Bilirubin,Total 0.6 mg/dl (0.2-1.0); Calcium 10.4 mg/dl (8.6-10.3); Est GFR (African American) 62.2 ml/min; Est GFR (Non-African American) 53.7 ml/min; Globulin 2.6 gm/dl (2.5-4.0); Potassium 4.2 mmol/L (3.5-5.1); Total Protein 7.2 gm/dl (6.0-8.3)
[2024-05-05 14:56] LABS: Troponin I High Sensitivity 119.6 pg/ml (0-14)
[2024-05-05] MEDS: niCARdipine HCL INJ 2.5 MG/ML 10 ML AMP ONE ×2 (15:06→15:07)
[2024-05-05] MEDS: NITROGLYCERIN/D5W 100MCG/ML 20ML SYR ONE (15:07)
[2024-05-05] MEDS: diphenhydrAMINE 50 MG/ML VIAL ONE (15:07)
--- NOTE | 2024-05-05 15:15 | History & Physical Report ---
Date of Service May 05, 2024 Assessment & Plan (1) Acute ST elevation myocardial infarction (STEMI): (2) Tobacco abuse: (3) COPD (chronic obstructive pulmonary disease): (4) HLD (hyperlipidemia): (5) Chronic pain syndrome: (6) Underweight: Plan This is a 78 year old F who has a significant PMH of COPD, current tobacco abuse, HTN, HLD, Coronary artery calcification, diverticulosis, chronic pain syndrome, Underweight by BMI who presents to ED 2/2 burning in her chest. ACUTE STEMI, INFERIOR s/p PCI MAURISIO x 2 to RCA with good outcome ASA 325mg daily and plavix 75mg daily, may decrease to ASA 81mg daily after 1 month GDMT with high intensity statin, metoprolol and plus/minus NAHED/ARB as tolerated obtain echocardiogram trend trop til peak recommend cardiac rehab at discharge HLD chronic, previously lipid panel as outpatient abnormal but pt previously not on statin Tobacco abuse strongly advised cessation HTN bp elevated upon admission [facility] not on BP meds continue to follow cardiology recommendations Chronic back pain Failed laminectomy syndrome follows [facility] for pain management currently on tramadol prn as well as she was started on suboxone 1 week ago; however they do not know what does she is on will not continue suboxone in house given she doesn't know dose 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 Rae Pt was seen and examined in collaboration with Dr. Castañeda, please see addendum A total of 42 minutes was spent coordinating, documenting, and providing care for this patient excluding time spent in the performance of separately billed services. This included personally viewing all current laboratories and imaging studies, medication reconciliation, outpatient chart review, and discussion with specialists. History of Present Illness Chief Complaint: Burning in chest prior to arrival. Primary Care Provider: Ian Rae This is a 78 year old F who has a significant PMH of COPD, current tobacco abuse, HTN, HLD, Coronary artery calcification, diverticulosis, chronic pain syndrome, Underweight by BMI who presents to ED 2/2 burning in her chest. She co mplains of burning off and on for the past 2 weeks. Today she was driving home from [employer] when her substernal chest pain/burning started. It lasted 1.5hrs and it was different than previous episodes. It radiated to her arm and was associated with nausea. 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 She has prior hx of L2-L5 lumbar laminectomy and fusion with posterior spinal instrumentation with persistent left sided back pain. She has had multiple epidural injections w/o much relief. Per [facility] she is not a candidate for further surgery. Currently she is on gabapentin and tramadol. Also of note she has a sclerotic lesion in the iliac wing on left side and a PET scan has been ordered for this. In ED pt was made a heart alert due to concerning ecg findings with inferior abnormalities concerning for STEMI. She underwent PCI by Dr. Medina where 2 overlapping drug eluding stents were placed in the RCA. She is currently admitted and medically stable in the ICU on Integrilin gtt. and daughter are at bedside. She smokes 4-6 cigarettes a day and has smoked for 30 years. She has a strong FH of CAD in both her mother and father. Allergies Allergy/AdvReac Type Severity Reaction Status Date / Time prednisone Allergy Unknown . Verified 10/12/23 14:13 Home Medications Medication Instructions Recorded Confirmed Type aspirin 81 mg tablet,delayed 162 mg PO DAILY 05/05/24 05/05/24 History release celecoxib 50 mg capsule 50 mg PO BID 05/05/24 05/05/24 History cyanocobalamin (vitamin B-12) 500 500 mcg PO DAILY 05/05/24 05/05/24 History mcg tablet duloxetine 30 mg capsule,delayed 30 mg PO DAILY 05/05/24 05/05/24 History release gabapentin 100 mg capsule 100 mg PO TID 05/05/24 05/05/24 History magnesium 250 mg tablet 250 mg PO DAILY 05/05/24 05/05/24 History mirtazapine 7.5 mg tablet 7.5 mg PO HS 05/05/24 05/05/24 History tramadol 50 mg tablet 50 mg PO Q8 PRN Pain 05/05/24 05/05/24 History Past Med/Surg History Problem List (Updated 05/05/24 @ 18:46 by KERI Bustos) Tobacco use STEMI (ST elevation myocardial infarction) Atherogenic dyslipidemia Benign essential hypertension Elevated troponin (Acute) Underweight Tobacco abuse PVC (premature ventricular contraction) (Acute) Acute ST elevation myocardial infarction (STEMI) (Acute) Heavy tobacco smoker (Acute) Chest pain (Acute) Medical History Chronic pain syndrome COPD (chronic obstructive pulmonary disease) HLD (hyperlipidemia) Hypertension Surgical History S/P tubal ligation History of back surgery History of neck surgery S/P cataract surgery Family History Father Myocardial infarction Coronary heart disease Social History Smoking Status: Current every day smoker Tobacco Type: Cigarettes Cigarettes Per Day: 6; Second Hand Exposure: No; Do You Dip or Chew Tobacco: No; Hx Alcohol Use: No Hx Substance Use: No Preferred Language: Greek Communication Ability: Effective Guide Travel Required: No Beliefs That Will Affect Care: None Current Living Situation: Spouse Feels Safe at Home: Yes Assistive Devices: Glasses, Hearing Aid - Bilateral and Hearing Aid - Left Review of Systems Review of Systems: All systems reviewed & are unremarkable except as noted in HPI & below Physical Exam Physical Exam: please refer to Dr. Maddy roldan for physical exam findings. Results & Data Results & Data Vital Signs (Past 12 Hours) Vital Signs Temp Pulse Pulse Resp BP BP Pulse Ox 05/05/24 14:33 83 22 170/75 H 98 05/05/24 14:21 89 05/05/24 14:19 78 18 163/72 H 99 05/05/24 14:19 68 18 98 05/05/24 14:17 79 20 138/88 96 05/05/24 14:07 22 99 05/05/24 14:07 81 22 98 05/05/24 13:54 36.6 C 74 18 157/83 H 98 O2 Del Method 05/05/24 14:33 Room Air 05/05/24 14:21 05/05/24 14:19 Room Air 05/05/24 14:19 Room Air 05/05/24 14:17 Room Air 05/05/24 14:07 Room Air 05/05/24 14:07 Room Air 05/05/24 13:54 Room Air Diagnostic Findings Chest X-Ray 05/05/24 14:10 SINGLE VIEW CHEST CLINICAL HISTORY: Atypical chest pain FINDINGS: An AP, portable, upright chest radiograph is compared to study dated 06/03/2015. The heart is mildly enlarged noting atherosclerotic calcification of the thoracic aorta. The pulmonary vasculature is noncongested. Chronic interstitial thickening is similar to previous. There is mild bibasilar scarring/atelectasis. No airspace consolidation or large pleural effusion is identified. The skeletal structures are osteopenic. The bony thorax is grossly intact. Fusion hardware is seen in the lumbar spine. IMPRESSION: Mild cardiomegaly with no active disease in the chest. ACT 112: Negative or not required by law. Electronically signed by: Brandyn Mcgowan M.D. 05/05/2024 2:24 PM Medications Administered Medication List Nitroglycerin (Nitroglycerin Sl 0.4 Mg/Tab Tab) 0.4 mg SL Q5M PRN PRN Reason: Chest Pain Stop: 06/04/24 14:09 Last Admin: 05/05/24 14:29 Dose: 0.4 mg Documented By: MMG Discontinued Medications Aspirin (Aspirin 81 Mg Chew) 324 mg PO NOW STA Stop: 05/05/24 14:11 Last Admin: 05/05/24 14:18 Dose: 324 mg Documented By: MMVioletta Diphenhydramine HCl (Diphenhydramine 50 Mg/Ml Vial) Confirm Administered Dose 50 mg .ROUTE .STK-MED ONE Stop: 05/05/24 14:56 Last Admin: 05/05/24 15:07 Dose: 25 mg Documented By: ROMANA Heparin Sodium/Sodium Chloride (Heparin In Nss Infusion 1000 Unit/500 Ml (2 U/Ml) Bag) Confirm Administered Dose 3,000 units IV .STK-MED ONE Stop: 05/05/24 14:33 Last Admin: 05/05/24 15:06 Dose: 3,000 units Documented By: BPLuis Felipe Nicardipine HCl (Nicardipine Hcl Inj 2.5 Mg/Ml 10 Ml Amp) Confirm Administered Dose 25 mg .ROUTE .STK-MED ONE Stop: 05/05/24 14:33 Last Admin: 05/05/24 15:06 Dose: 25 mg Documented By: BPLuis Felipe Nicardipine HCl (Nicardipine Hcl Inj 2.5 Mg/Ml 10 Ml Amp) Confirm Administered Dose 25 mg .ROUTE .STK-MED ONE Stop: 05/05/24 14:38 Last Admin: 05/05/24 15:07 Dose: 25 mg Documented By: BPY Nitroglycerin/Dextrose (Nitroglycerin/D5w 100mcg/Ml 20ml Syr) Confirm Administered Dose 2,000 mcg .ROUTE .STK-MED ONE Stop: 05/05/24 14:34 Last Admin: 05/05/24 15:07 Dose: 2,000 mcg Documented By: BPY ECG Additional Comments: I have independently reviewed and interpreted patient's admitting EKG which revealed: 70 NSR, concern for STEM with inferior elevation, lateral depression COVID-19 Results Results COVID-19 Adm Lab Results: RBC 3.59 M/uL (4.20-5.40) L 05/05/24 WBC 5.87 K/ul (4.8-10.8) 05/05/24 Hgb 12.1 g/dl (12.0-16.0) 05/05/24 Hct 36.2 % (37.0-47.0) L 05/05/24 Plt Count 225 K/uL (130-400) 05/05/24 Neutrophils (%) (Auto) 74.1 % 05/05/24 Lymphocytes (%) (Auto) 16.4 % 05/05/24 Monocytes # (Auto) 0.40 K/uL (0.11-0.59) 05/05/24 Eosinophils # (Auto) 0.10 K/uL (0.00-0.50) 05/05/24 Immature Granulocyte % (Auto) 0.3 % 05/05/24 Neutrophils # (Auto) 4.35 K/uL (1.40-6.50) 05/05/24 Lymphocytes # (Auto) 0.96 K/uL (1.20-3.40) L 05/05/24 Monocytes # (Auto) 0.40 K/uL (0.11-0.59) 05/05/24 Eosinophils # (Auto) 0.10 K/uL (0.00-0.50) 05/05/24 Basophils # (Auto) 0.04 K/uL (0.00-0.20) 05/05/24 Immature Granulocyte # (Auto) 0.02 K/uL (0.01-0.20) 4 Na 142 mmol/L (136-145) 05/05/24 K 4.2 mmol/L (3.5-5.1) 05/05/24 Cl 108 mmol/L (98-107) H 05/05/24 CO2 26 mmol/L (21-32) 05/05/24 Anion Gap 8 (3-11) 05/05/24 BUN 31 mg/dl (6-23) H 05/05/24 Creatinine 1.01 mg/dl (0.6-1.2) 05/05/24 BUN/Creatinine Ratio 30.7 (10-20) H 05/05/24 Glucose Level 102 mg/dl (70-99(Fasting)) H 05/05/24 Ca 10.4 mg/dl (8.6-10.3) H 05/05/24 Total Bilirubin 0.6 mg/dl (0.2-1.0) 05/05/24 AST/SGOT 24 U/L (13-39) 05/05/24 ALT/SGPT 18 U/L (7-52) 05/05/24 Alkaline Phosphatase 58 U/L (34-104) 05/05/24 Total Protein 7.2 gm/dl (6.0-8.3) 05/05/24 Albumin 4.6 gm/dl (3.4-5.0) 05/05/24 Globulin 2.6 gm/dl (2.5-4.0) 05/05/24 Albumin/Globulin Ratio 1.8 (0.9-2) 05/05/24 PTT 24 Seconds (21-31) 05/05/24 INR 0.9 (0.9-1.1) 05/05/24 Chest X-Ray 05/05/24 Code Status & VTE Plan Code Status FULL CODE VTE Prophylaxis Plan VTE Prophylaxis will be ordered: Yes Supervising Physician Co-Signing Physician Notes I have seen and discussed the case with the collaborating advanced practitioner. I agree with the above H&P. I have reviewed and confirmed the patients medical history, the findings on physical examination, and the patients diagnosis and treatment plan with PA-C and agree with the information documented. In short, Ms. Marquis is a 78 year old woman with history of htn, post- laminectomy syndrome and chronic pain, HLD, and daily tobacco use who is admitted for management of STEMI. GENERAL APPEARANCE: AxOx4, generally well-appearing M/F, no acute distress. HEENT: NC, AT. MMM. EOMI, clear conjunctiva, oropharynx clear. NECK: Supple without lymphadenopathy. No stiffness or restricted ROM. HEART: Normal rate and regular rhythm, normal S1/S1, no m/r/g LUNGS: CTAB, moving air well. No crackles or wheezes are heard. ABDOMEN: Soft, nontender, nondistended with good bowel sounds heard. BACK: No CVAT, no obvious deformity. EXTREMITIES: Without cyanosis, clubbing or edema. NEUROLOGICAL: Grossly nonfocal. Alert and oriented, moving all 4 extremities. CN not formally tested but appear grossly intact. Observed to ambulate with normal gait. Skin: Warm and dry without any rash. 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 Continue duloxetine HCl 30 MG continue gabapentin 100mg TID Tramadol prn, recently started on Suboxone as of last week (does not know dosing) #Stage 3a chronic kidney disease renal function stable on admission, trend bmp s/p contrast load from [facility] #Prior hypertension Medications discontinued 2019 CTM, medications as above #HLD last lipid panel in 2018, total cholesterol 210, ldl 119 Repeat lipid panel #Underweight BMI 14.3, last 3 op visits weight stable from 36-27 kilos CTM #Tobacco Use advised cessation DVT ICU I spent a total of 35 minutes coordinating, documenting, and providing care for this patient excluding time spent in the performance of separately billed services. All of the aforementioned completed outside of collaborating with the assigned advanced practitioner for a full treatment plan. I have reviewed the advanced practitioner's documentation, and I agree with, and take responsibility for the plan of care
[2024-05-05] MEDS: CLOPIDOGREL BISULFATE 300 MG TAB ONE (15:49)
[2024-05-05] MEDS: ATROPINE SULFATE 0.1 MG/ML 10ML SYR IV ONE (15:49)
[2024-05-05] MEDS: HEPARIN (PORCINE) 1000 UNIT/ML 10 ML (CATH LAB USE ONLY) ONE ×2 (15:50→15:52)
[2024-05-05] MEDS: EPTIFIBATIDE 2 MG/ML 10 ML VIAL (CATH LAB USE ONLY) IV ONE (15:50)
[2024-05-05] MEDS: MIDAZOLAM HCL 1 MG/ML 2ML VIAL ONE (15:51)
[2024-05-05] MEDS: OPTIRAY 350 ONE (15:51)
[2024-05-05] MEDS: fentaNYL citrate PF 100 MCG/2 ML VIAL ONE (15:52)
[2024-05-05] MEDS ORDERED: EPTIFIBATIDE BOLUS/DRIP IV STA (16:05)
[2024-05-05] MEDS ORDERED: ONDANSETRON INJ 2 MG/ML 2 ML VIAL IV PRN (16:05)
[2024-05-05] MEDS ORDERED: ATROPINE SULFATE 0.1 MG/ML 10ML SYR IV PRN (16:05)
[2024-05-05] MEDS ORDERED: NITROGLYCERIN SL 0.4 MG/TAB TAB SL PRN (16:05)
--- NOTE | 2024-05-05 16:19 | Pre Anesthesia Assessment ---
Date of Service May 05, 2024 Pre Sedation Assessment Vital Signs Temp Pulse Pulse Resp BP BP Pulse Ox 05/05/24 14:33 83 22 170/75 H 98 05/05/24 14:21 89 05/05/24 14:19 78 18 163/72 H 99 05/05/24 14:19 68 18 98 05/05/24 14:17 79 20 138/88 96 05/05/24 14:07 22 99 05/05/24 14:07 81 22 98 05/05/24 13:54 36.6 C 74 18 157/83 H 98 O2 Del Method 05/05/24 14:33 Room Air 05/05/24 14:21 05/05/24 14:19 Room Air 05/05/24 14:19 Room Air 05/05/24 14:17 Room Air 05/05/24 14:07 Room Air 05/05/24 14:07 Room Air 05/05/24 13:54 Room Air Cardiovascular RRR, no murmur, no edema Respiratory normal respiratory effort, lungs clear to auscultation Pre-Sedation Airway Assessment Smoking Status: Current every day smoker CLASS III ASA 4 Notes The planned sedation has been discussed with the patient. Informed Consent was obtained. I have identified the patient, determined the appropriateness of sedation and have assessed the patient immediately prior to the procedure. All medicine(s) and interventions are by my order.
--- NOTE | 2024-05-05 16:22 | Post Anesthesia Assessment ---
Date of Service May 05, 2024 Post Sedation Assessment Vital Signs Temp Pulse Pulse Resp BP BP Pulse Ox 05/05/24 14:33 83 22 170/75 H 98 05/05/24 14:21 89 05/05/24 14:19 78 18 163/72 H 99 05/05/24 14:19 68 18 98 05/05/24 14:17 79 20 138/88 96 05/05/24 14:07 22 99 05/05/24 14:07 81 22 98 05/05/24 13:54 36.6 C 74 18 157/83 H 98 O2 Del Method 05/05/24 14:33 Room Air 05/05/24 14:21 05/05/24 14:19 Room Air 05/05/24 14:19 Room Air 05/05/24 14:17 Room Air 05/05/24 14:07 Room Air 05/05/24 14:07 Room Air 05/05/24 13:54 Room Air Recovery Score Activity: Moves 4 extremities Respiration: Deep Breath/Cough Circulation: +/-20% PreAnes Value Consciousness: Fully Awake Oxygen Saturation: > 92% On Room Air Discharge Sedation Level of Care: Fast Track Phase II Post Sedation Plan On clinical assessment, the patient appears to have tolerated the sedation without complications. Patient is recovering as anticipated. Patient will continue to be monitored by nursing and may be discharged when sedation discharge criteria are met per below protocol. Upon Completions of procedure up to 15 minutes continue every 5 minute vital signs and the P.A.R. score; then discharge to a Phase I or Fast Track to Phase II per the following guidelines: * Discharge Patient to appropriate Phase II area if PAR is 8 or greater or return to pre- procedure baseline. The post - procedure orders will be as directed. * If PAR score is less than 8 or not return to pre-procedure baseline then patient will follow Phase I monitoring till PAR is reached for Phase II. The Phase I may be done in procedure room or may call to secure a Phase I area. * If naloxone or flumazenil are used for reversal, hold in Phase I for delores nued monitoring from when last reversal dose was given for a minimum of 60 minutes or longer pending the nurse and/or physician discretion of patient condition before discharge to Phase II. Please call the Sedation Physician to re-evaluate and complete post-note for discharge to Phase II area. Do NOT discharge from procedure sedation or Phase 1 until post- sedation evaluation note is complete by procedure /sedation MD Sedation Discharge Instructions to be given to the patient at discharge to home[place] [facility] [place]odes ([place]arges) Indication for Procedure Indication for procedure: STEMI Sedation/Anesthesia Procedure 1: Sedation/Anesthesia: 09139 Mod Sedation by the same physician;Init15 Min Child Age 5 & Up (Initial 15 min start 1454) Total Sedation Time (minutes): 54 Procedure 2: Sedation/Anesthesia: 67891 Mod Sedation by the same physician; Ea [id number] Minutes (Additional 39-minute, end time 1548) Total Sedation Time (minutes): 54
--- NOTE | 2024-05-05 16:24 | Post Anesthesia Assessment ---
Date of Service May 05, 2024 Post Sedation Assessment Vital Signs Temp Pulse Pulse Resp BP BP Pulse Ox 05/05/24 14:33 83 22 170/75 H 98 05/05/24 14:21 89 05/05/24 14:19 78 18 163/72 H 99 05/05/24 14:19 68 18 98 05/05/24 14:17 79 20 138/88 96 05/05/24 14:07 22 99 05/05/24 14:07 81 22 98 05/05/24 13:54 36.6 C 74 18 157/83 H 98 O2 Del Method 05/05/24 14:33 Room Air 05/05/24 14:21 05/05/24 14:19 Room Air 05/05/24 14:19 Room Air 05/05/24 14:17 Room Air 05/05/24 14:07 Room Air 05/05/24 14:07 Room Air 05/05/24 13:54 Room Air Recovery Score Activity: Moves 4 extremities Respiration: Deep Breath/Cough Circulation: +/-20% PreAnes Value Consciousness: Fully Awake Oxygen Saturation: > 92% On Room Air Discharge Sedation Level of Care: Fast Track Phase II Post Sedation Plan On clinical assessment, the patient appears to have tolerated the sedation without complications. Patient is recovering as anticipated. Patient will continue to be monitored by nursing and may be discharged when sedation discharge criteria are met per below protocol. Upon Completions of procedure up to 15 minutes continue every 5 minute vital signs and the P.A.R. score; then discharge to a Phase I or Fast Track to Phase II per the following guidelines: * Discharge Patient to appropriate Phase II area if PAR is 8 or greater or return to pre- procedure baseline. The post - procedure orders will be as directed. * If PAR score is less than 8 or not return to pre-procedure baseline then patient will follow Phase I monitoring till PAR is reached for Phase II. The Phase I may be done in procedure room or may call to secure a Phase I area. * If naloxone or flumazenil are used for reversal, hold in Phase I for delores nued monitoring from when last reversal dose was given for a minimum of 60 minutes or longer pending the nurse and/or physician discretion of patient condition before discharge to Phase II. Please call the Sedation Physician to re-evaluate and complete post-note for discharge to Phase II area. Do NOT discharge from procedure sedation or Phase 1 until post- sedation evaluation note is complete by procedure /sedation MD Sedation Discharge Instructions to be given to the patient at discharge to home. [facility] [place] Procedure Codes (Charges) Indication for Procedure Indication for procedure: STEMI Sedation/Anesthesia Procedure 1: Sedation/Anesthesia: 13943 Mod Sedation by the same physician;Init15 Min Child Age 5 & Up (Initial 15 minutes, start time 1454) Total Sedation Time (minutes): 54 Procedure 2: Sedation/Anesthesia: 69802 Mod Sedation by the same physician; Ea [id number] Minutes (Additional 39 minutes, end time 1548) Total Sedation Time (minutes): 54
[2024-05-05] MEDS: SODIUM CHLORIDE 0.9% 1,000 ML IV SCH ×2 (17:01→17:56)
--- NOTE | 2024-05-05 17:03 | Cardiac Catheterization ---
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 Cardiac Status Clinical evaluation leading to the procedure CAD Presenation: STEMI Anginal Classification: CCS IV Heart Failure: No Cardiogenic Shock within 24 Hours: No Cardiac Arrest within 24 Hours: No Imaging Studies Past 6 Months: No STEMI OR Non-STEMI Symptom Onset Date: 05/05/24 Thrombolytics: No Coronary Anatomy Dominant: Right Left Main (% Stenosis): Normal LAD (% Stenosis): Proximal (20%) and Distal (70%) D1 (% Stenosis): Normal D2 (% Stenosis): Normal Circumflex (% Stenosis): Proximal (20%) OM1 (% Stenosis): Normal OM2 (% Stenosis): Normal OM3 (% Stenosis): Normal L PL1 (% Stenosis): Normal RCA (% Stenosis): Proximal (100%) and Distal (Early 30%, late tandem 30%) R PDA (% Stenosis): Normal R PL1 (% Stenosis): Normal Diagnostic Physicians Name: Talha Yung MD, PhD Closure Device Percutaneous Entry Location: Femoral Closure Device: Angio-Seal Recommendations: Medical Therapy and/or Counseling and PCI without planned CABG PCI Indication: PCI for STEMI - Stable First Noted: First EKG Lesion Segment Name: Proximal RCA Culprit Artery: Yes Stenosis Prior to Rx (%): 100 Chronic Total Occlusion: No Pre-Procedure JOSE DAVID Flow: 0 Previously Treated Lesion: No Lesion Complexity: Non-High/Non-C Lesion Length (mm): 15 Thrombus Present: Yes Bifurcation Lesion: No Guidewire Across Lesion: Yes Intraprocedure Events Significant Disection: No Perforation: No Cardiac Cath Procedure Full Procedure Date May 05, 2024 Pre-Procedure Diagnosis Pre-Procedure Diagnosis: STEMI AUC Score AUC Score: 09 Post-Procedure Diagnosis Post-Procedure Diagnosis: Severe CAD and Successful PCI Procedure(s) Performed Procedure(s) Performed: Coronary Angiography, Left Heart Cath, Drug Eluting Stent and Ultrasound Guided Vascular Access Double Spindle Shaper Operator Talha Yung MD, PhD Estimated Blood Loss Estimated Blood Loss: 10 cc Medication(s) Medication(s): Aspirin, Atropine, Clopidogrel, Diphenhydramine, Fentanyl, Heparin, Integrilin, Lidocaine 1% and Versed Summary of Findings Brief description: Patient was brought to the cardiac catheterization suite where she was shaved and prepped in a sterile fashion. Sedated using IV Versed, fentanyl, and Benadryl. Soft tissues of the right wrist were anesthetized using 2 mL of 1% Xylocaine. Attempts to access the right radial artery were unsuccessful and we turned our attention to the femoral artery access. Soft tissues of the right groin were anesthetized using 10 mL 1% Xylocaine. Using the ultrasound for guidance (image saved), the right femoral artery was accessed and a 6 [place] femoral artery sheath was placed. All catheters were advanced and exchanged over a 0.035 J-tip wire. Right femoral artery access was evaluated by limited right femoral artery angiography in anticipation of closure. Findings were favorable. Left coronary angiography in orthogonal views with a 5 [place] JL 3.5 diagnostic catheter (following completion of PCI) Right coronary angiography in orthogonal views with a 6 [place] 3 DRC guide catheter. Left heart cath was done with a 6 [place] JR4 guide catheter (unable to engage right coronary but did pass into the left ventricle) PCI of the RCA was undertaken using a 6 [place] 3 DRC guide catheter. Patient was provided IV heparin. ACT was checked intermittently throughout the case and additional heparin provided as needed to maintain therapeutic anticoagulation. BMW reversal guidewire was advanced through the guide catheter and positioned beyond the lesion in the RCA. Lesion was predilated using a 1.5 x 6 mm mini trek balloon inflated twice to 8 humaira. Rubber Attacher angiography was performed. The guidewire was pulled back and reposition further distally. The lesion was again predilated with the 1.5 x 6 mm mini trek balloon this time at 14 humaira. Integrilin was then provided as a double bolus administration followed by a drip. The balloon was removed. A 2.0 x 12 mm trek balloon was then advanced and positioned across the lesion where it was inflated up to 17 humaira. The balloon was removed. Patient developed significant bradycardia and AIVR with reperfusion. Received atropine. A 2.5 x 18 mm Electra drug-eluting stent was advanced and positioned across the lesion. It was deployed initially at 16 humiara with a second inflation using the stent balloon up to 21 humaira. The balloon was then removed and record retrieval specialist angiography performed. A 3.0 x 15 mm NC sprinter balloon was advanced and positioned within the stent. Distal and mid stent postdilated at 14 humaira. Mid and proximal stent postdilated at 18 humaira. Balloon was removed. Rubber Attacher angiography performed. A 3.5 x 8 mm Ketan drug-eluting stent was then advanced and positioned with its distal edge within the proximal edge of the first stent. This was then deployed at 12 humaira. Stent balloon was removed. Angiography was performed. Guidewire was removed followed by the guide catheter. We next proceeded to complete the diagnostic left coronary angiography. After completion of left coronary angiography the femoral artery sheath was removed and hemostasis was obtained using a 6 [place] Angio-Seal closure device. This was deployed in the recommended fashion. We obtained immediate hemostasis and the patient remained hemodynamically stable. She was returned to the recovery area with plan for admission to the ICU. This ended the case. Coronary angiography findings: LMT-large and bifurcating into LAD and circumflex. Mild luminal irregularities. LAD-large and apical. Proximal segment is calcified with diffuse 10 to 20% stenosis. It provides a large septal branch and a medium caliber multi branching diagonal. This has mild luminal irregularities. The mid LAD has diffuse luminal irregularities. There is a large second diagonal closer to the apex which has luminal irregularities. The distal LAD has a focal 70% stenosis but appears relatively small and then tapers as it approaches the apex. LCx-large and nondominant. Proximal segment in AV groove has mild less than 20% stenosis. It gives a very small OM1 and continues on in the AV groove where it then gives a large OM 2 and a large OM 3 which arise very near 1 another. These have no angiographically significant disease. The distal AV groove circumflex tapers and then provides a medium caliber posterolateral branch without disease. [id number]. Proximal segment is 100% occluded with JOSE DAVID 0 flow. PCI of RCA- 0% residual stenosis post PCI with implantation of 2 overlapped drug-eluting stents JOSE DAVID-3 flow post PCI No evidence of dissection or perforation post PCI Post PCI the remainder of the RCA anatomy is seen. The mid segment has calcification and as it transitions to the early distal vessel there is 30% stenosis. Then, the late distal vessel before the bifurcation has tandem 30% stenosis. RCA bifurcates into a large on diseased PDA and a large multi branching posterolateral which is also without disease. Summary: 1. 100% occlusion of the proximal RCA is the culprit for ST elevation [place]. 2. Mild nonocclusive disease in the remainder of the coronaries except for a focal severe stenosis in the distal LAD which appears too small for PCI. 3. Successful PCI with implantation of 2 overlapped drug-eluting stents in the proximal to mid RCA. 4. Patient will remain on Integrilin drip for 12 hours, started on aspirin 325 mg daily and Plavix 75 mg daily after loading dose of Plavix was given in the cardiac catheterization lab. 5. Initiate guideline directed medical therapy for secondary prevention of coronary artery disease to include; aspirin, high intensity statin therapy, beta-caroline, plus or minus NAHED inhibitor/ARB. 6. Highly recommend CARDIAC REHAB. Hemodynamics Rest Ao:: 165/82 mmHg Final Ao: 146/96 mmHg LV: 170/13 mmHg, LVEDP 29 mmHg Recommendations Recommendations: Medical Therapy and/or Counseling and PCI without planned CABG Radiation Exposure (mGy) 318 mGy, fluoroscopy time 14.3 minutes Contrast (mls) 110 cc Anesthesia 2 mg Versed, 50 mcg fentanyl, 25 mg Benadryl IV. Start 1454, end 1548 Procedural Complication(s) None Disposition ICU I attest to the content of the Intraoperative Record and any orders documented therein. Any exceptions are noted below. [facility] Card Cath Procedure Codes Cardiac Catheterization Procedure 1: Cardiovascular Cath Procedures: 40857 Coronaries and LHC (+/-LV) Therapeutic Services & Ancillary Procedure 1: Cardiovascular Tx and Anc Procedures: 11995 Ultrasonic Guidance Vascular Access Moderate Sedation Procedure 1: Sedation/Anesthesia: 23894 Mod Sedation by the same physician;Init15 Min Child Age 5 & Up (Initial 15 min, start time 1454) Procedure 2: Sedation/Anesthesia: 06299 Mod Sedation by the same physician; Ea [id number] Minutes (Additional 39 min, end time 1548) Stenting Procedure 1: Cardiovascular Stent Procedures: 37037 Perc transluminal revascularization of acute sub/total occl, aMI (RCA) PG Care Time/CCT Total # of Minutes Spent Total Time Spent with Patient: Total time spent is greater than 50% in coordination of care (as documented) at patient's floor/unit and/or counseling patient:
[2024-05-05] MEDS: ICU Protocol for HYPERglycemia SCH ×2 (17:12→17:56)
--- NOTE | 2024-05-05 17:21 | Cardiology Consultation ---
Date of Consultation May 05, 2024 Assessment & Plan (1) Acute ST elevation myocardial infarction (STEMI): Status post PCI of the RCA. Good angiographic outcome without complications. She will remain on aspirin 325 mg daily and Plavix 75 mg p.o. daily for up to 1 to 2 years. The aspirin may be reduced to 81 mg daily after 30 days. Over the next 12 hours she will also be on Integrilin drip until the Plavix is fully loaded and active in her bloodstream. It may then be discontinued. We will initiate guideline directed medical therapy for secondary prevention including high intensity statin therapy, beta-caroline, plus or minus NAHED inhibitor/ARB as tolerated. We will rule out occult diabetes. She needs an echocardiogram. She should remain in the ICU for 24 hours post PCI. We strongly encourage she participate in cardiac rehab to optimize her long-term morbidity, mortality, and quality of life. (2) Benign essential hypertension: Blood pressure was very elevated on admission. We are beginning metoprolol tartrate 25 mg p.o. twice daily and should titrate for a resting heart rate in the 60s. Assuming that this does not adequately lower her blood pressure to target then we will likely add an angiotensin receptor caroline or NAHED inhibitor tomorrow. We will also consider low-dose isosorbide mononitrate for anginal control given her residual distal LAD disease. 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 High intensity statin therapy has been initiated with a atorvastatin 40 mg daily. We will be checking a fasting lipid panel in the morning with target LDL reduction to be greater than or equal to 50% of her untreated baseline LDL. History of Present Illness Reason for Consultation: ST elevation MD Attending Physician: Mitzi Castañeda MD History of Present Illness 78-year-old female smoker with a history of COPD, hypertension, and chronic pain presented with her to the emergency department for chest pain. EKG obtained by the emergency department demonstrated left ventricular hypertrophy and borderline ST elevations in the inferior leads with occasional PVCs. A "heart alert" was called and on my arrival the patient continued with chest discomfort as described below. Patient has been having chest burning with radiation up to her neck for the past several weeks. She felt this was indigestion. She also has a history of chronic back pain. However, today she and her were at [place] and she had recurrent chest burning. She became diaphoretic and short of breath. He brought her to the emergency room at that point. She had received aspirin and nitroglycerin. She noted improvement but not complete resolution of her chest discomfort. After discussing the findings on the EKG and obtaining full informed consent the patient was taken emergently to the cardiac catheterization suite where she underwent diagnostic coronary angiography via the right femoral artery approach and PCI with implantation of 2 overlapped drug-eluting stents in the RCA. She is now admitted to the ICU. Patient admits to many episodes of similar discomfort for at least 3 to 4 weeks. She felt it was probably indigestion. She denies any syncope, near syncope, orthopnea, PND, racing heartbeat, palpitations, or edema. She tells me that she never had any heart problems in the past. She is followed by primary care in [place]. Her physician is employed by [employer]. I do not have access to the [facility] electronic health records. Patient will be admitted under the [facility] hospitalist service. I note that her medical history here suggests dyslipidemia but her home medications do not include any statins or other cholesterol medications. Allergies Allergy/AdvReac Type Severity Reaction Status Date / Time prednisone Allergy Unknown . Verified 10/12/23 14:13 Home Medications Medication Instructions Recorded Confirmed Type aspirin 81 mg tablet,delayed 162 mg PO DAILY 05/05/24 05/05/24 History release celecoxib 50 mg capsule 50 mg PO BID 05/05/24 05/05/24 History cyanocobalamin (vitamin B-12) 500 500 mcg PO DAILY 05/05/24 05/05/24 History mcg tablet duloxetine 30 mg capsule,delayed 30 mg PO DAILY 05/05/24 05/05/24 History release gabapentin 100 mg capsule 100 mg PO TID 05/05/24 05/05/24 History magnesium 250 mg tablet 250 mg PO DAILY 05/05/24 05/05/24 History mirtazapine 7.5 mg tablet 7.5 mg PO HS 05/05/24 05/05/24 History Patient History Medical History Chronic pain syndrome COPD (chronic obstructive pulmonary disease) HLD (hyperlipidemia) Hypertension Surgical History S/P tubal ligation History of back surgery History of neck surgery S/P cataract surgery Family History Father Myocardial infarction Coronary heart disease Social History Smoking Status: Current every day smoker Hx Alcohol Use: No Hx Substance Use: No Preferred Language: Albanian Feels Safe at Home: Yes Review of Systems Review of Systems: Negative except as per HPI Physical Exam Constitutional: WD/WN, vitals as above (Frail-appearing elderly female. Low body weight. Mild distress on initial) Eyes: Extraocular muscles intact. Sclera are anicteric. ENMT: [place] is dry and intact. Neck: No JVD Respiratory: Clear to auscultation bilaterally. No wheezing, rhonchi, or rales. Diminished air movement. Cardiovascular: Regular rate and rhythm. Loud S2. systolic murmur. Musculoskeletal: no cyanosis or clubbing, extremities motor strength 5/5 Neurologic: Cognition is intact. Speech is fluent. No focal deficits. Psychiatric: A+Ox3, euthymic affect Results & Data Vital Signs (Past 12 Hours) Vital Signs Temp Pulse Pulse Resp BP BP Pulse Ox 05/05/24 14:33 83 22 170/75 H 98 05/05/24 14:21 89 05/05/24 14:19 78 18 163/72 H 99 05/05/24 14:19 68 18 98 05/05/24 14:17 79 20 138/88 96 05/05/24 14:07 22 99 05/05/24 14:07 81 22 98 05/05/24 13:54 36.6 C 74 18 157/83 H 98 O2 Del Method 05/05/24 14:33 Room Air 05/05/24 14:21 05/05/24 14:19 Room Air 05/05/24 14:19 Room Air 05/05/24 14:17 Room Air 05/05/24 14:07 Room Air 05/05/24 14:07 Room Air 05/05/24 13:54 Room Air PG Care Time/CCT Total # of Minutes Spent Total Time Spent with Patient: Total time spent is greater than 50% in coordination of care (as documented) at patient's floor/unit and/or counseling patient: 100 minutes of critical care time was spent in the initial evaluation of the patient in the ER, discussion with patient/family/ER staff, physical exam, review of available records/labs/EKG, formulation and implementation of a plan of care, and all associated documentation. This time is exclusive of the time spent for the procedure. Coding Level of Care Code 12413 CRITICAL CARE EA ADD 30M Diagnoses Acute ST elevation myocardial infarction (STEMI) I21.3 Involved coronary artery: unspecified coronary artery Benign essential hypertension I10 Atherogenic dyslipidemia E78.5 Time Spent (min) 100 (1) Acute ST elevation myocardial infarction (STEMI) Involved coronary artery: unspecified coronary artery Qualified Code(s): I21.3 - ST elevation (STEMI) myocardial infarction of unspecified site
[2024-05-05 18:11] LABS: Basophils # (auto) 0.04 K/uL (0.00-0.20); Basophils % (auto) 0.7 %; Eosinophils % (auto) 1.7 %; Hematocrit (blood only) 36.2 % (37.0-47.0); Hemoglobin 12.1 g/dl (12.0-16.0); Immature Granulocytes # (auto) 0.02 K/uL (0.01-0.20); Immature Granulocytes % (auto) 0.3 %; Lymphocytes # (auto) 0.96 K/uL (1.20-3.40); Lymphocytes % (auto) 16.4 %; Mean Corpuscular Hemoglobin 33.7 pg (25.0-34.0); Mean Corpuscular Hgb Conc 33.4 g/dL (32.0-36.0); Mean Corpuscular Volume 100.8 fL (80.0-100.0); Mean Platelet Volume 10.8 fL (9.4-12.4); Monocytes % (auto) 6.8 %; Neutrophils # (auto) 4.35 K/uL (1.40-6.50); Neutrophils % (auto) 74.1 %; Platelet Count 225 K/uL (130-400); RDW Coefficient of Variation 14.6 % (11.5-14.5); RDW Standard Deviation 54.3 fL (36.4-46.3); Red Blood Count 3.59 M/uL (4.20-5.40); White Blood Count 5.87 K/ul (4.8-10.8)
--- NOTE | 2024-05-05 18:48 | Critical Care Consultation ---
Date of Consultation May 05, 2024 Assessment & Plan (1) STEMI (ST elevation myocardial infarction): (2) Atherogenic dyslipidemia: (3) Benign essential hypertension: (4) Tobacco use: Plan Reason Critically Ill: 78 YOF presents with ACS noted inferior STEMI, taken to propagator laborer urgently found to have 100% porximal RCA occlusion, thrombus removed and MAURISIO x2 placed. To ICU post procedure on integrelin. Neuro - Chronic back pain CAM ICU: Negative - No acute needs - Continue with tylenol, tramadol, gabapentin, duloxetine Cardiac - STEMI, HTN, HLD, - Patient post MAURISIO x2 to RCA- continue integrelin infusion per Cardiology - BB, ASA, Plavix, high intensity statin- initiated by cardiology - ECHO in am - follow CV/NV status of RLE - HGBA1c, lipid panel in am - further medical management based on values Respiratory - Tobacco dependance - COPD listed in problem list- no PFTs for review- she denies inhaler use at home - will need smoking cessation education GI - No acute needs RENAL/LYTES - No acute needs - ICU electrolyte protocol - No acute needs ENDO - No acute needs - ICU hyper/hypoglycemic protocol HEME - No acute needs - follow for evidence of bleeding with Integrilin and DAPT - Transfuse if indicated ID - No concern for infectious etiology at this time LINES/IV ACCESS - Alecia POLK Continue use of these lines DVT PROPHYLAXIS - SCDS, ASA/PLavix ambulation DISPO: ICU post cath until hemodynamics and telemetry proven stable. I have personally spent 45 minutes of critical care time in the direct management of this patient. This is a life/limb threatening event. This includes time spent evaluating patient, direct bedside care, chart review, placing orders, interpretation of diagnostic studies, discussion with consultants, patient, and family members, as well as other required patient management activities. This time is exclusive of all separately billable procedures, and teaching time and separate from and in addition to any other critical care service time. Thank you for allowing us to participate in the care of this patient. Please refer to my attending physician's documentation for any further recommendations. History of Present Illness Reason for Consultation: STEMI s/p PCI Requesting Physician: Felix Murcia MD Attending Physician: Mitzi Castañeda MD History of Present Illness 78 YOF with medical history of: COPD, HTN, HLD, chronic back pain with fusion, tobacco dependance-reports 1/2ppd for 20 years (currently smoking 1-2 cigarretts per day). Patient came to the [facility] today for evaluation of chest burning. The burnig was present for about a week and located in the center of her chest, it would come and go. Today she was out grocery shopping with her , and the burning got progressively worse and became associated with feeling like she couldn't get a deep breath and feeling sweaty. She was brought to the [facility] and was noted to have ECG changes inferiorly. She was taken urgently to the propagator laborer where she underwent PCI via the right groin and noted to have 100% occlusion of the proximal RCA. She received 2 overlapping MAURISIO to the RCA. She is noted with mild non-occlusive residual disease per cardiology report. Patient is to the ICU with Integrilin infusion in place. She remains pain free, occasional PVC on telemetry. She is awake and conversant, right groin site intact with angioseal. CODE: FULL Allergies Allergy/AdvReac Type Severity Reaction Status Date / Time prednisone Allergy Unknown . Verified 10/12/23 14:13 Home Medications Medication Instructions Recorded Confirmed Type aspirin 81 mg tablet,delayed 162 mg PO DAILY 05/05/24 05/05/24 History release celecoxib 50 mg capsule 50 mg PO BID 05/05/24 05/05/24 History cyanocobalamin (vitamin B-12) 500 500 mcg PO DAILY 05/05/24 05/05/24 History mcg tablet duloxetine 30 mg capsule,delayed 30 mg PO DAILY 05/05/24 05/05/24 History release gabapentin 100 mg capsule 100 mg PO TID 05/05/24 05/05/24 History magnesium 250 mg tablet 250 mg PO DAILY 05/05/24 05/05/24 History mirtazapine 7.5 mg tablet 7.5 mg PO HS 05/05/24 05/05/24 History tramadol 50 mg tablet 50 mg PO Q8 PRN Pain 05/05/24 05/05/24 History Patient History Medical History Chronic pain syndrome COPD (chronic obstructive pulmonary disease) HLD (hyperlipidemia) Hypertension Surgical History S/P tubal ligation History of back surgery History of neck surgery S/P cataract surgery Family History Father Myocardial infarction Coronary heart disease Social History Smoking Status: Current every day smoker Tobacco Type: Cigarettes Cigarettes Per Day: 6; Second Hand Exposure: No; Do You Dip or Chew Tobacco: No; Hx Alcohol Use: No Hx Substance Use: No Preferred Language: Thai Communication Ability: Effective Tariff Expert Required: No Beliefs That Will Affect Care: None Current Living Situation: Spouse Feels Safe at Home: Yes Assistive Devices: Glasses, Hearing Aid - Bilateral and Hearing Aid - Left Review of Systems Review of Systems: REVIEW OF SYSTEMS: Constitutional: No fever, sweats or chills Eyes: No diplopia, no worsening or blurred vision ENT: wears glasses, normal hearing, no trouble swallowing Respiratory: No cough, sputum, dyspnea at rest or on exertion Cardiovascular: (+) chest pain/burning- resolved, currently no pain/ tightness or palpitations Abdomen: No pain, nausea, vomiting, diarrhea or constipation Musculoskeletal: (+) chronic back pain, No joint pain, calf pain, swelling Neurologic: No weakness, numbness/tingling, or balance problems Psychiatric: No anxiety or depression Skin: No rash or itch Physical Exam Physical Exam: PHYSICAL EXAM: General: awake, alert, no apparent distress Head: Normocephalic, atraumatic ENT: PERRL, EOMI, no pharyngeal exudate, mucous membranes moist Neuro: AAO x 3, speech clear and appropriate, strength intact bilaterally 5/5, sensation intact and equal all extremities and dermatomes, no pronator drift Chest: equal rise and fall of the chest, no accessory muscle use, no heaves or thrills, Clear to auscultation, on room air, Cardiac: Regular rate and rhythm, telemetry reviewed- NSR with PVC, skin warm dry, cap refill <3 seconds, peripheral pulses +2 no JVD, no murmur, no edema, right femoral groin site intact without hematoma or bleeding. GI: NABS x 4 quadrants, soft, nontender to palpation, no rebound, guarding or tenderness : Spontaneously voiding, no pain, no CVA tenderness, Extremities: Normal inspection, no peripheral edema or erythema, calfs nontender to palpation Psych: Normal mood and affect Skin: no rash or erythema Results & Data Results & Data Vital Signs (Past 12 Hours) Vital Signs Temp Pulse Pulse Resp BP BP Pulse Ox 05/05/24 17:45 71 16 98 05/05/24 17:36 83 16 95 05/05/24 17:30 85 16 132/82 96 05/05/24 17:15 83 18 151/84 H 98 05/05/24 17:12 82 15 96 05/05/24 17:00 81 16 137/106 H 99 05/05/24 17:00 80 16 91 05/05/24 16:45 83 18 151/67 H 94 05/05/24 16:45 78 15 97 05/05/24 16:36 82 14 95 05/05/24 16:30 86 16 160/84 H 96 05/05/24 16:18 151/108 H 05/05/24 16:15 36.8 C 92 H 16 151/108 H 97 05/05/24 16:11 05/05/24 14:33 83 22 170/75 H 98 05/05/24 14:21 89 05/05/24 14:19 78 18 163/72 H 99 05/05/24 14:19 68 18 98 05/05/24 14:17 79 20 138/88 96 05/05/24 14:07 22 99 05/05/24 14:07 81 22 98 05/05/24 13:54 36.6 C 74 18 157/83 H 98 O2 Del Method 05/05/24 17:45 05/05/24 17:36 05/05/24 17:30 Room Air 05/05/24 17:15 Room Air 05/05/24 17:12 05/05/24 17:00 Room Air 05/05/24 17:00 05/05/24 16:45 Room Air 05/05/24 16:45 05/05/24 16:36 05/05/24 16:30 Room Air 05/05/24 16:18 05/05/24 16:15 Room Air 05/05/24 16:11 Room Air 05/05/24 14:33 Room Air 05/05/24 14:21 05/05/24 14:19 Room Air 05/05/24 14:19 Room Air 05/05/24 14:17 Room Air 05/05/24 14:07 Room Air 05/05/24 14:07 Room Air 05/05/24 13:54 Room Air Laboratory Results Abnormal lab results 05/05/24 05/05/24 05/05/24 Range/Units 14:13 14:18 15:24 RBC (4.20-5.40) M/uL Hct (37.0-47.0) % MCV (80.0-100.0) fL RDW Std Deviation 54.2 H (36.4-46.3) fL RDW Coeff of [place]ina 14.6 H (11.5-14.5) % Lymph # (Auto) 1.16 L (1.20-3.40) K/uL [place] # (Auto) 0.61 H (0.11-0.59) K/uL Activ Coag Time Kaolin 293 H (94-140) SECONDS Chloride 108 H (98-107) mmol/L POC Anion Gap 13.0 L (16-25) mmol/L POC BUN 30 H (7-18) mg/dl BUN 31 H (6-23) mg/dl BUN/Creatinine Ratio 30.7 H (10-20) Glucose 102 H (70-99(Fasting)) mg/dl POC Glucose (other) 100 H (70-99) mg/dl Calcium 10.4 H (8.6-10.3) mg/dl Troponin I High Sens 119.6 H* (0-14) pg/ml 05/05/24 05/05/24 Range/Units 15:49 17:15 RBC 3.59 L (4.20-5.40) M/uL Hct 36.2 L (37.0-47.0) % MCV 100.8 H (80.0-100.0) fL RDW Std Deviation 54.3 H (36.4-46.3) fL RDW Coeff of [place] 14.6 H (11.5-14.5) % Lymph # (Auto) 0.96 L (1.20-3.40) K/uL [place] # (Auto) (0.11-0.59) K/uL Activ Coag Time Kaolin 293 H (94-140) SECONDS Chloride (98-107) mmol/L POC Anion Gap (16-25) mmol/L POC BUN (7-18) mg/dl BUN (6-23) mg/dl BUN/Creatinine Ratio (10-20) Glucose (70-99(Fasting)) mg/dl POC Glucose (other) (70-99) mg/dl Calcium (8.6-10.3) mg/dl Troponin I High Sens 1793.7 H* D (0-14) pg/ml Diagnostic Findings Chest X-Ray 05/05/24 14:10 SINGLE VIEW CHEST CLINICAL HISTORY: Atypical chest pain FINDINGS: An AP, portable, upright chest radiograph is compared to study dated 06/03/2015. The heart is mildly enlarged noting atherosclerotic calcification of the thoracic aorta. The pulmonary vasculature is noncongested. Chronic interstitial thickening is similar to previous. There is mild bibasilar scarring/atelectasis. No airspace consolidation or large pleural effusion is identified. The skeletal structures are osteopenic. The bony thorax is grossly intact. Fusion hardware is seen in the lumbar spine. IMPRESSION: Mild cardiomegaly with no active disease in the chest. ACT 112: Negative or not required by law. Electronically signed by: Brandyn Mcgowan M.D. 05/05/2024 2:24 PM Medications Administered Home Medications aspirin 81 mg tablet,delayed release 162 mg PO DAILY 05/05/24 [History Confirmed 05/05/24] celecoxib 50 mg capsule 50 mg PO BID 05/05/24 [History Confirmed 05/05/24] cyanocobalamin (vitamin B-12) 500 mcg tablet 500 mcg PO DAILY 05/05/24 [History Confirmed 05/05/24] duloxetine 30 mg capsule,delayed release 30 mg PO DAILY 05/05/24 [History Confirmed 05/05/24] gabapentin 100 mg capsule 100 mg PO TID 05/05/24 [History Confirmed 05/05/24] magnesium 250 mg tablet 250 mg PO DAILY 05/05/24 [History Confirmed 05/05/24] mirtazapine 7.5 mg tablet 7.5 mg PO HS 05/05/24 [History Confirmed 05/05/24] tramadol 50 mg tablet 50 mg PO Q8 PRN Pain 05/05/24 [History Confirmed 05/05/24] Active Medications Aspirin (Aspirin 325 Mg Ectab) [facility] Stop: 06/05/24 08:59 Atorvastatin Calcium (Atorvastatin 40 Mg Tab) [facility] Stop: 06/05/24 08:59 Clopidogrel Bisulfate (Clopidogrel Bisulfate 75 Mg Tab) 75 mg PO QAM [facility]RITA Stop: 06/05/24 08:59 Duloxetine HCl (Duloxetine Hcl 30 Mg Cap) 30 mg PO DAILY [facility]ITA Stop: 06/05/24 08:59 Gabapentin (Gabapentin 100 Mg Cap) 100 mg PO TID [facility]ITA Stop: 06/04/24 20:59 Sodium Chloride (Nss) 1,000 mls @ 75 mls/hr IV .[id number] [facility]ITA Stop: 06/04/24 16:59 Last Admin: 05/05/24 17:01 Dose: 75 mls/hr Eptifibatide (Integrilin) 75 mg in 100 mls @ 2.936 mls/hr IV .Q24H AMRITA; Protocol Stop: 05/06/24 04:00 Metoprolol Tartrate (Metoprolol Tartrate 25 Mg Tab) 25 mg PO BID [facility]ITA Stop: 06/04/24 20:59 Mirtazapine (Mirtazapine Tab 15 Mg Tab) 7.5 mg PO HS [facility]ITA Stop: 06/04/24 20:59 Miscellaneous (Icu Protocol For Hyperglycemia) 1 each N/A ACHS [facility]RITA Stop: 05/07/24 16:46 Last Admin: 05/05/24 17:12 Dose: 1 each Nitroglycerin (Nitroglycerin Sl 0.4 Mg/Tab Tab) 0.4 mg SL Q5M PRN PRN Reason: Chest Pain Stop: 06/04/24 16:04 Tramadol HCl (Tramadol Hcl 50 Mg Tablet) 50 mg PO Q4H PRN PRN Reason: Pain Stop: 06/04/24 17:52 Coding Level of Care Code 84759 CRITICAL CARE 1ST 30-74M Diagnoses STEMI (ST elevation myocardial infarction) I21.3 Atherogenic dyslipidemia E78.5 Benign essential hypertension I10 Tobacco use Z72.0
[2024-05-05] MEDS ORDERED: traMADol HCL 50 MG TABLET PO PRN (18:51)
[2024-05-05] MEDS: MAGNESIUM SULFATE / D5W 1 GM/100 ML BAG IV SCH (20:02)
[2024-05-05] MEDS: EPTIFIBATIDE 75 MG/100 ML VIAL IV SCH (20:06)
[2024-05-05] MEDS: GABAPENTIN 100 MG CAP PO SCH (20:10)
[2024-05-05] MEDS: METOPROLOL TARTRATE 25 MG TAB PO SCH (20:11)
[2024-05-05] MEDS: MIRTAZAPINE TAB 15 MG TAB PO SCH (20:13)
[2024-05-05] MEDS: traMADol HCL 50 MG TABLET PO PRN (21:51)
[2024-05-06 05:46] LABS: Basophils # (auto) 0.06 K/uL (0.00-0.20); Basophils % (auto) 1.1 %; Eosinophils # (auto) 0.12 K/uL (0.00-0.50); Eosinophils % (auto) 2.2 %; Hematocrit (blood only) 34.9 % (37.0-47.0); Hemoglobin 11.6 g/dl (12.0-16.0); Immature Granulocytes # (auto) 0.02 K/uL (0.01-0.20); Immature Granulocytes % (auto) 0.4 %; Lymphocytes # (auto) 0.93 K/uL (1.20-3.40); Lymphocytes % (auto) 16.8 %; Mean Corpuscular Hemoglobin 33.6 pg (25.0-34.0); Mean Corpuscular Hgb Conc 33.2 g/dL (32.0-36.0); Mean Corpuscular Volume 101.2 fL (80.0-100.0); Mean Platelet Volume 10.9 fL (9.4-12.4); Monocytes # (auto) 0.56 K/uL (0.11-0.59); Monocytes % (auto) 10.1 %; Neutrophils # (auto) 3.84 K/uL (1.40-6.50); Neutrophils % (auto) 69.4 %; Platelet Count 205 K/uL (130-400); Red Blood Count 3.45 M/uL (4.20-5.40); White Blood Count 5.53 K/ul (4.8-10.8)
[2024-05-06 06:14] LABS: Albumin Globulin Ratio 1.8 (0.9-2); Albumin Level 3.4 gm/dl (3.4-5.0); BUN Creatinine Ratio 25.3 (10-20); Bilirubin,Total 0.6 mg/dl (0.2-1.0); Calcium 8.2 mg/dl (8.6-10.3); Chol HDL Ratio 2.9 (0-5); Est GFR (African American) 70.5 ml/min; Est GFR (Non-African American) 60.9 ml/min; Globulin 1.9 gm/dl (2.5-4.0); Magnesium 2.3 mg/dl (1.7-2.4); Potassium 4.5 mmol/L (3.5-5.1); Total Protein 5.3 gm/dl (6.0-8.3)
--- NOTE | 2024-05-06 08:05 | Critical Care Progress Note ---
Date of Service May 06, 2024 Assessment & Plan (1) Tobacco use: (2) STEMI (ST elevation myocardial infarction): (3) Benign essential hypertension: (4) Elevated troponin: Plan Reason Critically Ill: 78 YOF presents with ACS noted inferior STEMI, taken to catheterization laboratory technician urgently found to have 100% porximal RCA occlusion, thrombus removed and MAURISIO x2 placed. To ICU post procedure on integrelin. Neuro - Chronic back pain CAM ICU: Negative - No acute needs - Continue with tylenol, tramadol, gabapentin, duloxetine Cardiac - STEMI, HTN, HLD, - Patient post MAURISIO x2 to RCA- continue integrelin infusion per Cardiology -Continue with BB, ASA, Plavix, high intensity statin Respiratory - Tobacco dependance - COPD listed in problem list- no PFTs for review- she denies inhaler use at home - will need smoking cessation education GI - No acute needs RENAL/LYTES - No acute needs - ICU electrolyte protocol - No acute needs ENDO - No acute needs - ICU hyper/hypoglycemic protocol HEME - --Macrocytic anemia -Monitor H&H ID - No concern for infectious etiology at this time --Prophylaxis VTE IPC GI: None Lines: Peripheral Diet: Cardiac Plan: In/out: +1.2 L Recommend full PFT as an outpatient. She might benefit from Incruse/Spiriva inhaler on a daily basis along with smoking cessation Did have 6 beats of NSVT overnight. She is already on beta-caroline. Disposition as per cardiology Please note the above document was generated using voice recognition software. It may contain grammatical, syntax or spelling errors.Any formal questions or concerns about the content, text or information contained within the body of this dictation should be directly addressed to the provider for clarification. Admission and Anticipated Discharge Date Admission Date: May 05, 2024 Subjective Patient seen and examined at bedside. No acute distress, notable symptoms overnight Patient was saturating 96% on room air at time of examination Denied any chest pain, no heartburn Fair appetite, no nausea vomiting Denies any shortness of breath Review of Systems 2 Review of Systems: All systems reviewed & are unremarkable except as noted in HPI & below Physical Exam 2 Physical Exam: Constitutional: No acute distress HEENT: EOMI, PERRLA Respiratory system: Decreased air entry bilaterally, no wheeze, no rhonchi, mild crackles bilateral lower lobes CVS: S1-S2 positive, no murmurs or gallops Abdomen: Soft, nontender, nondistended, positive bowel sounds x4 Extremities: +2 pulses bilaterally radialis/ dorsalis pedis, no cyanosis, no edema Neuro: Awake alert oriented x3 Psych: Normal mood and affect G/U: No [place] Skin: no rashes, warm and dry Lymphatic: no cervical or axillary lymphadenopathy Results & Data Results & Data Vital Signs (Past 12 Hours) Vital Signs Temp Pulse Resp BP Pulse Ox O2 Del Method 05/06/24 07:39 36.7 C 62 20 140/73 95 Room Air 05/06/24 03:30 36.7 C 62 14 107/59 L 95 Room Air 05/06/24 00:05 36.6 C 63 16 125/65 93 Room Air Laboratory Results 05/06/24 05:18 05/06/24 05:18 Coding Level of Care Code 40496 SUB INP/OBS CARE 2/35MIN Diagnoses Tobacco use Z72.0 STEMI (ST elevation myocardial infarction) I21.3 Benign essential hypertension I10 Elevated troponin R79.89
[2024-05-06] MEDS: CLOPIDOGREL BISULFATE 75 MG TAB PO SCH (08:20)
[2024-05-06] MEDS: DULoxetine HCL 30 MG CAP PO SCH (08:20)
[2024-05-06] MEDS: ASPIRIN 325 MG ECTAB PO SCH (08:20)
[2024-05-06] MEDS: ATORVASTATIN 40 MG TAB PO SCH (08:20)
[2024-05-06 09:31] LABS: Estimated Average Glucose 114 mg/dl; Hemoglobin A1C 5.6 % (4.5-5.6)
--- NOTE | 2024-05-06 10:15 | XCELERA ---
[id number] [id number]
--- NOTE | 2024-05-06 10:48 | Electrocardiogram Report ---
Test Reason : Blood Pressure : / mmHG Vent. Rate : 070 BPM Atrial Rate : 070 BPM P-R Int : 146 ms QRS Dur : 094 ms QT Int : 382 ms P-R-T Axes : 078 042 094 degrees QTc Int : 412 ms Sinus rhythm PACs Left ventricular hypertrophy ST segement changes concerning for ischemia Abnormal ECG When compared with ECG of 05-MAY-2024 14:04, (unconfirmed) Premature ventricular complexes are now Present Aberrant conduction is no longer Present Sinus rhythm is no longer with ventricular escape complexes Confirmed by Severo Noriega ([id number]) on 05/06/2024 10:48:20 AM Referred By: REFERRED SELF Confirmed By:Shantanu Noriega
--- NOTE | 2024-05-06 10:51 | Electrocardiogram Report ---
Test Reason : Blood Pressure : / mmHG Vent. Rate : 064 BPM Atrial Rate : 064 BPM P-R Int : 142 ms QRS Dur : 096 ms QT Int : 390 ms P-R-T Axes : 078 050 096 degrees QTc Int : 402 ms Sinus rhythm with Premature atrial complexes with Aberrant conduction with ventricular escape complex es Left ventricular hypertrophy ACUTE WI / STEMI inferior injury Consider right ventricular involvement in acute inferior infarct Abnormal ECG When compared with ECG of 03-JUN-2015 17:28, Aberrant conduction is now Present Sinus rhythm is now with ventricular escape complexes Inferior injury is now present Confirmed by Severo Noriega ([id number]) on 05/06/2024 10:50:35 AM Referred By: REFERRED SELF Confirmed By:Shantanu Noriega
--- NOTE | 2024-05-06 10:58 | Electrocardiogram Report ---
Test Reason : Blood Pressure : / mmHG Vent. Rate : 089 BPM Atrial Rate : 089 BPM P-R Int : 156 ms QRS Dur : 082 ms QT Int : 404 ms P-R-T Axes : 084 -22 -39 degrees QTc Int : 491 ms Poor data quality, interpretation may be adversely affected Normal sinus rhythm Voltage criteria for left ventricular hypertrophy Abnormal ECG When compared with ECG of 05-MAY-2024 14:06, (unconfirmed) Premature ventricular complexes are no longer Present T wave inversions are now present in the inferior leads Confirmed by Severo Noriega ([id number]) on 05/06/2024 10:58:25 AM Referred By: REFERRED SELF Confirmed By:Shantanu Noriega
--- NOTE | 2024-05-06 11:32 | Hospitalist Progress Note ---
Date of Service May 06, 2024 Assessment & Plan (1) Acute ST elevation myocardial infarction (STEMI): (2) Tobacco abuse: (3) COPD (chronic obstructive pulmonary disease): (4) HLD (hyperlipidemia): (5) Chronic pain syndrome: (6) Underweight: Plan This is a 78 year old F who has a significant PMH of COPD, current tobacco abuse, HTN, HLD, Coronary artery calcification, diverticulosis, chronic pain syndrome, Underweight by BMI who presents to ED 2/2 burning in her chest. ACUTE STEMI, INFERIOR s/p PCI MAURISIO x 2 to RCA with good outcome Was on Integrilin drip which has been discontinued and now on- ASA 325mg daily and plavix 75mg daily, may decrease to ASA 81mg daily after 1 month GDMT with high intensity statin, metoprolol and plus/minus NAHED/ARB as tolerated Echo of the heart showed-severe hypokinesis to akinesis in RCA territory myocardium, aortic valve sclerosis mild without significant aortic valvular stenosis, moderate LV systolic dysfunction and grade 1 diastolic dysfunction, dilated IVC and bowing of atrial septum, moderate AI and mild MR Highest troponin noted to be seven 474.7 and it has been trending down with the second set at 04/02/2007 Recommend cardiac rehab at discharge She has been free from any pain following the procedure in the ICU and wants to go home Await cardiology evaluation today and possible discharge this afternoon HLD chronic, previously lipid panel as outpatient abnormal but pt previously not on statin Tobacco abuse strongly advised cessation HTN bp elevated upon admission 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 Rae Admission and Anticipated Discharge Date Admission Date: May 05, 2024 Subjective 05/06/2024 The patient was seen and examined in ICU She is a status post PCI following STEMI Remains hemodynamically stable and free from any cardiac symptoms She wants to go home Review of Systems Review of Systems: All systems reviewed and are unremarkable except as noted below Physical Exam Physical Exam: Lying in bed comfortably Constitutional: + thin; not ill appearing Eyes: PERRL, conjunctivae normal, anicteric sclerae ENMT: external ear and nose normal, oropharynx normal Neck: trachea midline, no thyromegaly Respiratory: no respiratory distress Auscultation: lungs clear to auscultation bilaterally Cardiovascular: Rate/Rhythm: regular rate and regular rhythm; not tachycardic Heart Sounds: normal S1, normal S2 and + murmur Extremities: no edema Gastrointestinal (Abdomen): Inspection/Auscultation: normal bowel sounds; abdomen not distended Percussion/Palpation: abdomen soft; abdomen nontender Musculoskeletal: No acute arthritis involving any of the joint Neurologic: normal touch/pain/proprioception and moves all extremities; no focal motor deficits Lymphatic: no cervical or axillary lymphadenopathy Results & Data Results & Data Vital Signs (Past 12 Hours) Vital Signs Temp Pulse Pulse Resp BP BP Pulse Ox 05/06/24 09:00 76 15 87 L 05/06/24 08:03 72 12 98 05/06/24 08:01 156/72 H 05/06/24 08:00 05/06/24 07:51 64 10 L 95 05/06/24 07:39 36.7 C 62 20 140/73 95 05/06/24 07:18 65 11 L 98 05/06/24 03:30 36.7 C 62 14 107/59 L 95 05/06/24 00:05 36.6 C 63 16 125/65 93 O2 Del Method O2 Del Method O2 Flow Rate 05/06/24 09:00 05/06/24 08:03 05/06/24 08:01 05/06/24 08:00 Room Air 96 05/06/24 07:51 05/06/24 07:39 Room Air 05/06/24 07:18 05/06/24 03:30 Room Air 05/06/24 00:05 Room Air Laboratory Results Short CBC 05/05/24 05/05/24 05/06/24 Range/Units 14:13 17:15 05:18 WBC 6.90 5.87 5.53 (4.8-10.8) K/ul Hgb 14.8 12.1 11.6 L (12.0-16.0) g/dl Hct 43.8 36.2 L 34.9 L (37.0-47.0) % Plt Count 281 225 205 (130-400) K/uL BMP 05/05/24 05/06/24 14:13 05:18 Sodium 142 140 Potassium 4.2 4.5 Chloride 108 H 114 H Carbon Dioxide 26 23 BUN 31 H 23 Creatinine 1.01 0.91 Glucose 102 H 89 Calcium 10.4 H 8.2 L D Liver Function 05/05/24 05/06/24 Range/Units 14:13 05:18 Total Bilirubin 0.6 0.6 (0.2-1.0) mg/dl AST 24 47 H (13-39) U/L ALT 18 19 (7-52) U/L Alkaline Phosphatase 58 37 (34-104) U/L Albumin 4.6 3.4 (3.4-5.0) gm/dl Medications Administered Current Inpatient Medications Aspirin (Aspirin 325 Mg Ectab) 325 mg PO QA [facility]ITA Stop: 06/05/24 08:59 Last Admin: 05/06/24 08:20 Dose: 325 mg Atorvastatin Calcium (Atorvastatin 40 Mg Tab) 40 mg PO [facility] Stop: 06/05/24 08:59 Last Admin: 05/06/24 08:20 Dose: 40 mg Clopidogrel Bisulfate (Clopidogrel Bisulfate 75 Mg Tab) 75 mg PO [facility] Stop: 06/05/24 08:59 Last Admin: 05/06/24 08:20 Dose: 75 mg Duloxetine HCl (Duloxetine Hcl 30 Mg Cap) 30 mg PO DAILY [facility] Stop: 06/05/24 08:59 Last Admin: 05/06/24 08:20 Dose: 30 mg Gabapentin (Gabapentin 100 Mg Cap) 100 mg PO TID [facility]ITA Stop: 06/04/24 20:59 Last Admin: 05/06/24 08:20 Dose: 100 mg Sodium Chloride (Nss) 1,000 mls @ 75 mls/hr IV .[id number] [facility] Stop: 06/04/24 16:59 Last Infusion: 05/06/24 07:36 Dose: Infused Metoprolol Tartrate (Metoprolol Tartrate 25 Mg Tab) 25 mg PO BID [facility]ITA Stop: 06/04/24 20:59 Last Admin: 05/06/24 08:20 Dose: 25 mg Mirtazapine (Mirtazapine Tab 15 Mg Tab) 7.5 mg PO HS [facility]ITA Stop: 06/04/24 20:59 Last Admin: 05/05/24 20:13 Dose: 7.5 mg Miscellaneous (Icu Protocol For Hyperglycemia) 1 each N/A ACHS [facility]ITA Stop: 05/07/24 16:46 Last Admin: 05/06/24 11:05 Dose: Not Given Nitroglycerin (Nitroglycerin Sl 0.4 Mg/Tab Tab) 0.4 mg SL Q5M PRN PRN Reason: Chest Pain Stop: 06/04/24 16:04 Tramadol HCl (Tramadol Hcl 50 Mg Tablet) 50 mg PO Q4H PRN PRN Reason: Pain Stop: 06/04/24 17:52 Last Admin: 05/06/24 10:16 Dose: 50 mg Tramadol HCl (Tramadol Hcl 50 Mg Tablet) 50 mg PO Q8 PRN PRN Reason: Pain Stop: 06/04/24 18:50 (1) Acute ST elevation myocardial infarction (STEMI) Involved coronary artery: unspecified coronary artery Qualified Code(s): I21.3 - ST elevation (STEMI) myocardial infarction of unspecified site
--- NOTE | 2024-05-06 11:37 | Electrocardiogram Report ---
Test Reason : Blood Pressure : / mmHG Vent. Rate : 064 BPM Atrial Rate : 064 BPM P-R Int : 152 ms QRS Dur : 092 ms QT Int : 466 ms P-R-T Axes : 087 -54 -75 degrees QTc Int : 480 ms Normal sinus rhythm Left axis deviation Prolonged QT Abnormal ECG When compared with ECG of 05-MAY-2024 16:21, (unconfirmed) ST now depressed in Inferior leads T wave inversion now evident in Anterior leads Confirmed by Severo Noriega ([id number]) on 05/06/2024 11:36:51 AM Referred By: REFERRED SELF Confirmed By:Shantanu Noriega
[2024-05-06 16:33] LABS: Basophils # (auto) 0.05 K/uL (0.00-0.20); Basophils % (auto) 0.8 %; Eosinophils # (auto) 0.11 K/uL (0.00-0.50); Eosinophils % (auto) 1.7 %; Hematocrit (blood only) 34.9 % (37.0-47.0); Hemoglobin 11.8 g/dl (12.0-16.0); Immature Granulocytes # (auto) 0.02 K/uL (0.01-0.20); Immature Granulocytes % (auto) 0.3 %; Lymphocytes # (auto) 0.99 K/uL (1.20-3.40); Lymphocytes % (auto) 15.3 %; Mean Corpuscular Hemoglobin 33.9 pg (25.0-34.0); Mean Corpuscular Hgb Conc 33.8 g/dL (32.0-36.0); Mean Corpuscular Volume 100.3 fL (80.0-100.0); Mean Platelet Volume 10.9 fL (9.4-12.4); Monocytes # (auto) 0.63 K/uL (0.11-0.59); Monocytes % (auto) 9.7 %; Neutrophils # (auto) 4.68 K/uL (1.40-6.50); Neutrophils % (auto) 72.2 %; Platelet Count 220 K/uL (130-400); RDW Coefficient of Variation 15.2 % (11.5-14.5); RDW Standard Deviation 56.2 fL (36.4-46.3); Red Blood Count 3.48 M/uL (4.20-5.40); White Blood Count 6.48 K/ul (4.8-10.8)
--- NOTE | 2024-05-06 17:33 | Electrocardiogram Report ---
Test Reason : Blood Pressure : / mmHG Vent. Rate : 062 BPM Atrial Rate : 062 BPM P-R Int : 144 ms QRS Dur : 090 ms QT Int : 470 ms P-R-T Axes : 092 -42 -78 degrees QTc Int : 477 ms Normal sinus rhythm Left axis deviation Anteroseptal infarct , age undetermined Abnormal ECG When compared with ECG of 06-MAY-2024 04:58, Anteroseptal infarct is now Present ST no longer depressed in Anterior leads Confirmed by Severo Noriega ([id number]) on 05/06/2024 5:33:14 PM Referred By: REFERRED SELF Confirmed By:Shantanu Noriega
--- NOTE | 2024-05-06 17:45 | Cardiology Progress Note ---
Date of Service May 06, 2024 Assessment & Plan (1) Ischemic cardiomyopathy: Plan: Moderately reduced EF of 35 to 40%. Some of this is acutely secondary to OH but she did present with several weeks of significant symptoms so revascularization may not improve her EF back to normal. She has no evidence of fluid overload today. She is not taking any loop diuretic. Her only current heart failure medication is metoprolol tartrate 25 mg p.o. twice daily. My preference would be to change her to metoprolol succinate ER 25 mg daily and try to add angiotensin receptor caroline at a low dose as tolerated by her blood pressure. Unlikely to tolerate Entresto or more aggressive measures. I will hold off on adjuvant therapy such as Jardiance or spironolactone at this time. These can be considered as an outpatient. (2) STEMI (ST elevation myocardial infarction): Plan: Severe CAD status post PCI with implantation of 2 overlapped drug-eluting stents in the proximal RCA. Good angiographic results. She will remain on dual antiplatelet therapy with aspirin 325 mg daily and Plavix 75 mg daily for the next month at which point the aspirin can be changed to 81 mg daily. We do recommend a 1 to 2 years therapy. Current heart rate and blood pressure are at target. She will therefore continue guideline directed medical therapy with not only aspirin but high intensity statin, beta-caroline, and if possible the addition of ARB. The AI VR seen on the monitor is typical for reperfusion so she should remain on the monitor. She would be okay for stepdown unit. (3) Benign essential hypertension: Plan: Blood pressure is currently at target. Complete metoprolol tartrate 25 mg p.o. twice daily today but changed to metoprolol succinate ER 25 mg once daily tomorrow and to begin angiotensin receptor caroline. Moderate LVH is likely secondary to the longstanding hypertension. (4) Atherogenic dyslipidemia: Plan: Patient is high risk. High intensity statin therapy is recommended. Without any statin or other therapy her LDL was only 89 and HDL was 59. The HDL is at target. I would suggest we reduce her a atorvastatin to 20 mg daily which will likely still drop her LDL some and she would be at target plus she would be on guideline directed therapy to optimize cardiovascular morbidity and mortality. Plan Stepdown unit today. Medical changes in the morning. Assuming no complications, she would be appropriate for discharge tomorrow afternoon. Admission and Anticipated Discharge Date Admission Date: May 05, 2024 Subjective Patient denies any anginal chest pain or shortness of breath. She is asking to go home. I explained to her that standard of care is 48 hours post OH at minimum. She also had asymptomatic AIVR just prior to my arrival. She denies any pain at the access site. No other complaints or concerns at this time. Review of Systems Review of Systems: Negative except as per HPI Physical Exam Constitutional: WD/WN, vitals as above (Frail-appearing elderly female. Low body weight. ) Eyes: Extraocular muscles intact. Sclera are anicteric. ENMT: Oromucosa is dry and intact. Neck: No JVD Respiratory: Clear to auscultation bilaterally. No wheezing, rhonchi, or rales. Diminished air movement. Cardiovascular: Regular rate and rhythm. Loud S2. systolic murmur. Musculoskeletal: no cyanosis or clubbing, extremities motor strength 5/5 (Right groin ecchymosis. No bruits or masses.) Neurologic: Cognition is intact. Speech is fluent. No focal deficits. Psychiatric: A+Ox3, euthymic affect Results & Data Vital Signs (Past 12 Hours) Vital Signs Temp Pulse Pulse Resp BP BP Pulse Ox 05/06/24 17:06 81 17 96 05/06/24 16:03 73 14 128/67 96 05/06/24 16:00 05/06/24 16:00 61 05/06/24 15:03 69 20 96 05/06/24 14:00 61 18 95 05/06/24 14:00 111/52 L 05/06/24 13:03 63 18 96 05/06/24 12:44 117/56 L 05/06/24 12:42 75 16 05/06/24 12:00 128/70 05/06/24 12:00 63 20 97 05/06/24 11:03 54 L 16 96 05/06/24 10:00 122/61 05/06/24 10:00 59 L 19 05/06/24 09:00 76 15 87 L 05/06/24 08:03 72 12 98 05/06/24 08:01 156/72 H 05/06/24 08:00 05/06/24 08:00 05/06/24 07:51 64 10 L 95 05/06/24 07:39 36.7 C 62 20 140/73 95 05/06/24 07:18 65 11 L 98 O2 Del Method O2 Del Method O2 Flow Rate 05/06/24 17:06 05/06/24 16:03 05/06/24 16:00 Room Air 96 05/06/24 16:00 05/06/24 15:03 05/06/24 14:00 05/06/24 14:00 05/06/24 13:03 05/06/24 12:44 05/06/24 12:42 05/06/24 12:00 05/06/24 12:00 05/06/24 11:03 05/06/24 10:00 05/06/24 10:00 05/06/24 09:00 05/06/24 08:03 05/06/24 08:01 05/06/24 08:00 Room Air 05/06/24 08:00 Room Air 96 05/06/24 07:51 05/06/24 07:39 Room Air 05/06/24 07:18 PG Care Time/CCT Total # of Minutes Spent Total Time Spent with Patient: Total time spent is greater than 50% in coordination of care (as documented) at patient's floor/unit and/or counseling patient: Coding Level of Care Code 29924 SUB INP/OBS CARE 2/35MIN Diagnoses Ischemic cardiomyopathy I25.5 STEMI (ST elevation myocardial infarction) I21.3 Benign essential hypertension I10 Atherogenic dyslipidemia E78.5
[2024-05-07] MEDS ORDERED: OLANZapine ZYDIS 5 MG ORALLY DIS. TAB PO PRN (04:06)
[2024-05-07] MEDS: PSYLLIUM or GUAR GUM FIBER 4GM PACKET PO SCH (08:23)
[2024-05-07 09:00] LABS: BUN Creatinine Ratio 30.4 (10-20); Calcium 8.9 mg/dl (8.6-10.3); Est GFR (African American) 83.7 ml/min; Est GFR (Non-African American) 72.2 ml/min; Magnesium 1.7 mg/dl (1.7-2.4); Potassium 3.8 mmol/L (3.5-5.1)
[2024-05-07] MEDS: VALSARTAN 80 MG TAB PO SCH (09:36)
--- NOTE | 2024-05-07 11:58 | Hospitalist Progress Note ---
Date of Service May 07, 2024 Assessment & Plan (1) Acute ST elevation myocardial infarction (STEMI): (2) Tobacco abuse: (3) COPD (chronic obstructive pulmonary disease): (4) HLD (hyperlipidemia): (5) Chronic pain syndrome: (6) Underweight: Plan This is a 78 year old F who has a significant PMH of COPD, current tobacco abuse, HTN, HLD, Coronary artery calcification, diverticulosis, chronic pain syndrome, Underweight by BMI who presents to ED 2/2 burning in her chest. ACUTE STEMI, INFERIOR s/p PCI MAURISIO x 2 to RCA with good outcome Was on Integrilin drip which has been discontinued and now on- ASA 325mg daily and plavix 75mg daily, may decrease to ASA 81mg daily after 1 month GDMT with high intensity statin, metoprolol and plus/minus NAHED/ARB as tolerated Echo of the heart showed-severe hypokinesis to akinesis in RCA territory myocardium, aortic valve sclerosis mild without significant aortic valvular stenosis, moderate LV systolic dysfunction and grade 1 diastolic dysfunction, dilated IVC and bowing of atrial septum, moderate AI and mild MR Highest troponin noted to be 7474.7 and it has been trending down with the second set at 5707 and reduce further from the latest set at 4389 Recommend cardiac rehab at discharge She has been free from any pain following the procedure in the ICU and wants to go home Await cardiology evaluation today and possible discharge this afternoon Medications has been adjusted by the serials librarian Likely discharge this afternoon Ischemic cardiomyopathy Moderately reduced EF of 35 to 40% Beta-caroline has been started and will be continued ARB has been started and will be continued Further management with Jardiance or spironolactone as an outpatient and if tolerated Remains free from any symptoms now HLD chronic, previously lipid panel as outpatient abnormal but pt previously not on statin Tobacco abuse strongly advised cessation HTN bp elevated upon admission 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 Rae Likely discharge this afternoon Admission and Anticipated Discharge Date Admission Date: May 05, 2024 Subjective 05/06/2024 The patient was seen and examined in ICU She is a status post PCI following STEMI Remains hemodynamically stable and free from any cardiac symptoms She wants to go home 05/07/2024 The patient was seen and examined in telemetry unit in presence of the family members She has been feeling much better and denies any significant symptoms Her swelling and bruising over upper right inner thigh has been improving Denies any pain Review of Systems Review of Systems: All systems reviewed and are unremarkable except as noted below Physical Exam Physical Exam: Lying in bed comfortably Constitutional: + thin; not ill appearing Eyes: PERRL, conjunctivae normal, anicteric sclerae ENMT: external ear and nose normal, oropharynx normal Neck: trachea midline, no thyromegaly Respiratory: no respiratory distress Auscultation: lungs clear to auscultation bilaterally Cardiovascular: Rate/Rhythm: regular rate and regular rhythm; not tachycardic Heart Sounds: normal S1, normal S2 and + murmur Extremities: no edema Gastrointestinal (Abdomen): Inspection/Auscultation: normal bowel sounds; abdomen not distended Percussion/Palpation: abdomen soft; abdomen nontender Musculoskeletal: No acute arthritis involving any of the joints Skin: Extensive bruising involving the upper inner thigh on the right side Neurologic: normal touch/pain/proprioception and moves all extremities; no focal motor deficits Lymphatic: no cervical or axillary lymphadenopathy Results & Data Results & Data Vital Signs (Past 12 Hours) Vital Signs Temp Pulse Pulse Resp BP Pulse Ox Pulse Ox 05/07/24 11:13 36.5 C 62 15 98/64 L 96 05/07/24 08:00 96 05/07/24 08:00 68 05/07/24 07:27 36.5 C 74 18 147/74 H 98 05/07/24 03:17 36.5 C 69 22 149/85 H 95 05/07/24 00:00 73 O2 Del Method O2 Del Method 05/07/24 11:13 Room Air 05/07/24 08:00 Room Air 05/07/24 08:00 05/07/24 07:27 Room Air 05/07/24 03:17 Room Air 05/07/24 00:00 Laboratory Results Short CBC 05/06/24 Range/Units 16:08 WBC 6.48 (4.8-10.8) K/ul Hgb 11.8 L (12.0-16.0) g/dl Hct 34.9 L (37.0-47.0) % Plt Count 220 (130-400) K/uL [facility] 05/07/24 08:25 Sodium 141 Potassium 3.8 Chloride 109 H Carbon Dioxide 27 BUN 24 H Creatinine 0.79 Glucose 146 H Calcium 8.9 Medications Administered Current Inpatient Medications Aspirin (Aspirin 325 Mg Ectab) [facility] [place] Stop: 06/05/24 08:59 Last Admin: 05/07/24 08:23 Dose: 325 mg Atorvastatin Calcium (Atorvastatin 40 Mg Tab) [facility] [place] Stop: 06/05/24 08:59 Last Admin: 05/07/24 08:27 Dose: 40 mg Clopidogrel Bisulfate (Clopidogrel Bisulfate 75 Mg Tab) [facility] [place] Stop: 06/05/24 08:59 Last Admin: 05/07/24 08:22 Dose: 75 mg Duloxetine HCl (Duloxetine Hcl 30 Mg Cap) 30 mg PO DAILY [facility] Stop: 06/05/24 08:59 Last Admin: 05/07/24 08:22 Dose: 30 mg Gabapentin (Gabapentin 100 Mg Cap) 100 mg PO TID [facility] Stop: 06/04/24 20:59 Last Admin: 05/07/24 08:23 Dose: 100 mg Metoprolol Succinate (Metoprolol Succ 50mg Ext Rel Tab) [facility] [place] Stop: 06/07/24 08:59 Metoprolol Tartrate (Metoprolol Tartrate 25 Mg Tab) 25 mg PO BID [facility] Stop: 05/08/24 00:01 Last Admin: 05/07/24 08:21 Dose: 25 mg Mirtazapine (Mirtazapine Tab 15 Mg Tab) 7.5 mg PO HS [facility] Stop: 06/04/24 20:59 Last Admin: 05/06/24 21:17 Dose: 7.5 mg Nitroglycerin (Nitroglycerin Sl 0.4 Mg/Tab Tab) 0.4 mg SL Q5M PRN PRN Reason: Chest Pain Stop: 06/04/24 16:04 Olanzapine (Olanzapine Zydis 5 Mg Orally Dis. Tab) 5 mg PO DAILY PRN PRN Reason: Agitation Stop: 06/06/24 08:59 Psyllium Hydrophilic Mucilloid (Psyllium Or Guar Gum Fiber 4gm Packet) 4 gm PO QAM [facility] Stop: 06/06/24 08:59 Last Admin: 05/07/24 08:23 Dose: 4 gm Tramadol HCl (Tramadol Hcl 50 Mg Tablet) 50 mg PO Q4H PRN PRN Reason: Pain Stop: 06/04/24 17:52 Last Admin: 05/07/24 08:36 Dose: 50 mg Valsartan (Valsartan 80 Mg Tab) 80 mg PO QAM [facility] Stop: 06/06/24 08:59 Last Admin: 05/07/24 09:36 Dose: 80 mg (1) Acute ST elevation myocardial infarction (STEMI) Involved coronary artery: unspecified coronary artery Qualified Code(s): I21.3 - ST elevation (STEMI) myocardial infarction of unspecified site
--- NOTE | 2024-05-07 12:34 | Electrocardiogram Report ---
Test Reason : Blood Pressure : / mmHG Vent. Rate : 072 BPM Atrial Rate : 072 BPM P-R Int : 154 ms QRS Dur : 092 ms QT Int : 430 ms P-R-T Axes : 091 -41 -79 degrees QTc Int : 470 ms Normal sinus rhythm Left axis deviation Left ventricular hypertrophy with repolarization abnormality vs ischemia Abnormal ECG When compared with ECG of 06-MAY-2024 12:58, Criteria for Anteroseptal infarct are no longer Present Confirmed by Severo Noriega ([id number]) on 05/07/2024 12:34:50 PM Referred By: REFERRED SELF Confirmed By:Shantanu Noriega
--- NOTE | 2024-05-07 16:23 | Cardiology Progress Note ---
Date of Service May 07, 2024 Assessment & Plan (1) Ischemic cardiomyopathy: Plan: EF moderately reduced. No volume overload at this time. She will remain on metoprolol succinate ER 25 mg daily and valsartan 80 mg p.o. daily. Further titration of this regimen as an outpatient. No loop diuretic is necessary at this time. Adjuvant therapy such as spironolactone and Jardiance can be considered as an outpatient as well by her primary special events assistant. (2) STEMI (ST elevation myocardial infarction): Plan: Status post PCI with implantation of 2 overlapped drug-eluting stents in the proximal to mid RCA. Good angiographic results although she did present late with her symptoms. She will remain on aspirin 3 and 25 mg daily and Plavix 75 mg p.o. daily for the first 30 days. After that the aspirin can be reduced to 81 mg daily. Her heart rate and blood pressure are now at target. Guideline directed medical therapy will continue with aspirin, atorvastatin 40 mg daily, metoprolol succinate ER 25 mg daily, and Diovan 80 mg p.o. daily. Not requiring nitrates. (3) Atherogenic dyslipidemia: Plan: She is high risk. High intensity statin therapy ongoing with atorvastatin 40 mg daily. (4) Benign essential hypertension: Plan: Blood pressure at target on metoprolol succinate ER 25 mg daily and valsartan 80 mg daily. Plan Patient is appropriate for discharge at this time. She may follow-up with Dr. BOB with [facility] cardiology group in [place]. Admission and Anticipated Discharge Date Admission Date: May 05, 2024 Subjective Patient did well overnight. She is anxious to leave. She tolerated the changes in her medications. I spoke with her, her daughter, and eventually her . They agree that she would like to follow-up with Dr. BOB of [facility] cardiology group since her also goes to see Dr. BOB. At this time she is appropriate for discharge. Review of Systems Review of Systems: Negative except as per HPI Physical Exam Constitutional: WD/WN, vitals as above (Frail-appearing elderly female. Low body weight. ) Eyes: Extraocular muscles intact. Sclera are anicteric. ENMT: Oromucosa is dry and intact. Neck: No JVD Respiratory: Clear to auscultation bilaterally. No wheezing, rhonchi, or rales. Diminished air movement. Cardiovascular: Regular rate and rhythm. Loud S2. systolic murmur. Musculoskeletal: no cyanosis or clubbing, extremities motor strength 5/5 (Right groin ecchymosis. No bruits or masses.) Neurologic: Cognition is intact. Speech is fluent. No focal deficits. Psychiatric: A+Ox3, euthymic affect Results & Data Vital Signs (Past 12 Hours) Vital Signs Temp Pulse Pulse Resp BP Pulse Ox Pulse Ox 05/07/24 14:39 36.5 C 62 15 98/64 L 96 05/07/24 11:13 36.5 C 62 15 98/64 L 96 05/07/24 08:00 96 05/07/24 08:00 68 05/07/24 07:27 36.5 C 74 18 147/74 H 98 O2 Del Method O2 Del Method 05/07/24 14:39 05/07/24 11:13 Room Air 05/07/24 08:00 Room Air 05/07/24 08:00 05/07/24 07:27 Room Air PG Care Time/CCT Total # of Minutes Spent Total Time Spent with Patient: Total time spent is greater than 50% in coordination of care (as documented) at patient's floor/unit and/or counseling patient: Coding Level of Care Code 02971 SUB INP/OBS CARE 2/35MIN Diagnoses Ischemic cardiomyopathy I25.5 STEMI (ST elevation myocardial infarction) I21.3 Atherogenic dyslipidemia E78.5 Benign essential hypertension I10
--- NOTE | 2024-05-07 18:24 | Discharge Summary ---
Date of Service May 07, 2024 Admission HPI Per Admitting Provider This is a 78 year old F who has a significant PMH of COPD, current tobacco abuse, HTN, HLD, Coronary artery calcification, diverticulosis, chronic pain syndrome, Underweight by BMI who presents to ED 2/2 burning in her chest. She complains of burning off and on for the past 2 weeks. Today she was driving home from [employer] when her substernal chest pain/burning started. It lasted 1.5hrs and it was different than previous episodes. It radiated to her arm and was associated with nausea. 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 She has prior hx of L2-L5 lumbar laminectomy and fusion with posterior spinal instrumentation with persistent left sided back pain. She has had multiple epidural injections w/o much relief. Per [facility] she is not a candidate for further surgery. Currently she is on gabapentin and tramadol. Also of note she has a sclerotic lesion in the iliac wing on left side and a PET scan has been ordered for this. In ED pt was made a heart alert due to concerning ecg findings with inferior abnormalities concerning for STEMI. She underwent PCI by Dr. Medina where 2 overlapping drug eluding stents were placed in the RCA. She is currently admitted and medically stable in the ICU on Integrilin gtt. and daughter are at bedside. She smokes 4-6 cigarettes a day and has smoked for 30 years. She has a strong FH of CAD in both her mother and father. Admission Exam Per Admitting Provider GENERAL APPEARANCE: AxOx4, generally well-appearing M/F, no acute distress. HEENT: NC, AT. MMM. EOMI, clear conjunctiva, oropharynx clear. NECK: Supple without lymphadenopathy. No stiffness or restricted ROM. HEART: Normal rate and regular rhythm, normal S1/S1, no m/r/g LUNGS: CTAB, moving air well. No crackles or wheezes are heard. ABDOMEN: Soft, nontender, nondistended with good bowel sounds heard. BACK: No CVAT, no obvious deformity. EXTREMITIES: Without cyanosis, clubbing or edema. NEUROLOGICAL: Grossly nonfocal. Alert and oriented, moving all 4 extremities. CN not formally tested but appear grossly intact. Observed to ambulate with normal gait. Skin: Warm and dry without any rash. Principal Diagnosis NSTEMI, status post 2 MAURISIO placed in proximal RCA, ischemic cardiomyopathy Discharge Exam Lying in bed comfortably Constitutional + thin; not ill appearing Eyes PERRL, conjunctivae normal, anicteric sclerae ENMT external ear and nose normal, oropharynx normal Neck trachea midline, no thyromegaly Respiratory no respiratory distress Auscultation: lungs clear to auscultation bilaterally Cardiovascular Rate/Rhythm: regular rate and regular rhythm; not tachycardic Heart Sounds: normal S1, normal S2 and + murmur Extremities: no edema Gastrointestinal (Abdomen) Inspection/Auscultation: normal bowel sounds; abdomen not distended Percussion/Palpation: abdomen soft; abdomen nontender Neurologic normal touch/pain/proprioception and moves all extremities; no focal motor deficits Lymphatic no cervical or axillary lymphadenopathy Discharge Data Allergies Allergy/AdvReac Type Severity Reaction Status Date / Time prednisone Allergy Unknown . Verified 10/12/23 14:13 Consultations 05/05/24 15:05 ED Decision to Admit Stat 05/05/24 15:09 Consult Retort Furnace Helper Routine 05/05/24 16:11 Consult Cardiac Rehabilitation Routine Consult Retort Furnace Helper Routine Procedures Performed Operation Date: 05/05/24 14:30 Actual Procedures p Cineradiography w/Routine Exam - Talha Yung MD, PhD p Aspiration/PCI w/MAURISIO for Stemi - Talha Yung MD, PhD p Cath, Left with Cors and Vent - Talha Yung MD, PhD s Ultrasound Vascular Access - Talha Yung MD, PhD s Placement Art Occlusive Device - Talha Yung MD, PhD Ordered Studies 05/05/24 14:23 CL Cath Imgs for PACS use only Stat Hospital Course (1) Acute ST elevation myocardial infarction (STEMI): (2) Tobacco abuse: (3) COPD (chronic obstructive pulmonary disease): (4) HLD (hyperlipidemia): (5) Chronic pain syndrome: (6) Underweight: Plan This is a 78 year old F who has a significant PMH of COPD, current tobacco abuse, HTN, HLD, Coronary artery calcification, diverticulosis, chronic pain syndrome, Underweight by BMI who presents to ED 2/2 burning in her chest. ACUTE STEMI, INFERIOR s/p PCI MAURISIO x 2 to RCA with good outcome Was on Integrilin drip which has been discontinued and now on- ASA 325mg daily and plavix 75mg daily, may decrease to ASA 81mg daily after 1 month GDMT with high intensity statin, metoprolol and plus/minus NAHED/ARB as tolerated Echo of the heart showed-severe hypokinesis to akinesis in RCA territory myocardium, aortic valve sclerosis mild without significant aortic valvular stenosis, moderate LV systolic dysfunction and grade 1 diastolic dysfunction, dilated IVC and bowing of atrial septum, moderate AI and mild MR Highest troponin noted to be 7474.7 and it has been trending down with the second set at 5707 and reduce further from the latest set at 4389 Recommend cardiac rehab at discharge She has been free from any pain following the procedure in the ICU and wants to go home Await cardiology evaluation today and possible discharge this afternoon Medications has been adjusted by the slat twister Likely discharge this afternoon Ischemic cardiomyopathy Moderately reduced EF of 35 to 40% Beta-caroline has been started and will be continued ARB has been started and will be continued Further management with Jardiance or spironolactone as an outpatient and if to lerated Remains free from any symptoms now HLD chronic, previously lipid panel as outpatient abnormal but pt previously not on statin Tobacco abuse strongly advised cessation HTN bp elevated upon admission [employer]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 for pain management currently on tramadol prn as well as she was started on suboxone 1 week ago; however they do not know what does she is on will not continue suboxone in house given she doesn't know dose Underweight BMI 14.3 health and wellness coach consulted DVT ppx: SCDS Dispo: admit to ICU FULL CODE PCP: Dr. Rae Likely discharge this afternoon Total Time Total Time Spent Total Time Spent (In Minutes): 35 minutes Discharge Plan Discharge Items Patient Disposition: Home - Self-Care Reason For Visit: STEMI Discharge Diagnosis: NSTEMI, status post 2 MAURISIO placed in proximal RCA, ischemic cardiomyopathy Activity: As commented below Activity Comment: Take it easy for the next few days and use a walker to ambulate Non-emergency contact: Primary Care Provider Call non-emergency contact if: you have any medication questions and your symp toms worsen Follow-up/Referrals: PCP,NO [Physician] - (Please make an appointment with your PCP within 7 days) Diet: Heart Healthy Addtl Attending Provider Instructions: Please take precaution to avoid falls Take your medications as advised Please use the walker to ambulate Please keep appointment with your healthcare providers Addtl Health Associate Provider Instructions: ACTIVITY RECOMMENDATIONS: Excess manipulation of the wrist should be avoided for the next 24-48 hours. * No lifting over 2 pounds (approximately a 1/2 gallon of milk) with the utilized arm for 24 hours. * No strenuous activity such as bowling or tennis for 3 days. * Keep the site of the procedure covered with a bandage for 24 hours. *You may shower the day after the procedure. Do not take a tub bath or submerge the puncture site in water for the next 3 days. *Do not operate any motorized equipment for 3 days. SPECIAL CARE INSTRUCTIONS: The site may be slightly bruised and sore following your procedure. Should any of the following occur, contact the Dr. who performed your procedure. 1. Redness/inflammation, swelling, chills, or fever, or colored drainage at procedure site within 3-7 days after your procedure. 2. Coldness, discoloration, ongoing numbness, severe pain, or swelling. Expect mild tingling of hand and tenderness at the puncture site for up to three days. If this persists beyond three days, or other symptoms develop, notify the Dr. who performed your procedure. BLEEDING: If the procedure site on your wrist begins to bleed, do not panic 1. Place 1 or 2 fingers firmly just slightly above the insertion site to stop the bleeding. You may be able to feel your pulse as you hold pressure. 2. Lift your finger after 5 minutes to see if the bleeding has stopped. 3. Once the bleeding has stopped, gently wipe the wrist area clean with a bandage. * If the bleeding from your wrist does not stop after 10 minutes, or if there is a large amount of bleeding or spurting, call 911 (do not drive yourself to the hospit al). SKIN IRRITATION: * You may experience some redness and/or swelling in the area where radiation was administered. If any skin irritation occurs, please contact your family physician. FOLLOW UP VISIT: Keep any scheduled doctor appointments. Pending Studies at Discharge: No Stand-Alone Forms: My Scooters, Smoking Cessation Medications and DC Order Prescriptions: New clopidogrel 75 mg Tablet 75 mg PO QAM Qty: 30 0RF aspirin [Ecotrin] 325 mg Tablet,Delayed Release (Dr/Ec) 325 mg PO QAM Qty: 30 0RF Rx Instructions: For 1 month and then 81 mg to continue atorvastatin 40 mg Tablet 40 mg PO QAM Qty: 30 0RF valsartan [Diovan] 80 mg Tablet 80 mg PO QAM Qty: 30 0RF metoprolol succinate [Toprol XL] 25 mg tablet extended release 24 hr 25 mg PO DAILY Qty: 30 0RF Continued cyanocobalamin (vitamin B-12) 500 mcg Tablet 500 mcg PO DAILY magnesium 250 mg Tablet 250 mg PO DAILY mirtazapine 7.5 mg tablet 7.5 mg PO HS duloxetine 30 mg Capsule,Delayed Release(Dr/Ec) 30 mg PO DAILY gabapentin 100 mg capsule 100 mg PO TID tramadol 50 mg tablet 50 mg PO Q8 PRN (Reason: Pain) Discontinued aspirin [Aspir-81] 81 mg Tablet,Delayed Release (Dr/Ec) 162 mg PO DAILY celecoxib 50 mg capsule 50 mg PO BID Discharge Orders: Discharge Order (Routine); Ordered 05/07/24 Ordered By: Lillian Cabrera Admission Data Admit Date/Time: 05/05/24 15:09 Attending Provider: Lillian Cabrera Admit Provider: Mitzi Castañeda Primary Care Provider: Ian Rae Other Providers: Pb Smith; Mitzi Castañeda; Luc Blackman; Bart Miller; Omar Muller; Ok Whitley; Tj Irvin Nathan S.; Valarie Diaz; Rhiannon Forde; Zach Israel; Dillon Wolff; Eduarda Kong Other Interventions: Discharge Summary Assessment (RN) Last Done: 05/07/24 14:39
[2024-05-08] MEDS ORDERED: METOPROLOL SUCC 50MG EXT REL TAB PO SCH (09:00)
--- NOTE | 2024-05-08 17:33 | Coding Query ---
MALNUTRITION To promote full compliance with coding requirements relating to patient care, physician participation is requested in all cases of clerical administrative assistant uncertainty. Please assist us with the question(s) below: 05/06 RD note: Severe weight loss; severe loss of body fat and severe muscle loss in the clavicles with a nutritional diagnosis of Severe Malnutrition. Please place an X within the parenthesis (x). If other, please document: "Underweight" is documented in this record. If possible, please check the box that provides a more specific diagnosis and/or if you agree with RD's assessment. ( ) Mild malnutrition ( ) Moderate malnutrition ( ) Severe malnutrition ( ) Protein malnutrition (kwashiorkor) ( ) Severe protein calorie malnutrition ( ) Protein calorie malnutrition, unspecified (+ ) Other (please specify): BMI mentioned in progress note with Nutrition consult. Management will not differ with any of the above diagnosis Was this diagnosis present on admission? Please place an X within the parenthesis (x). ( ) Present on admission ( ) Not present on admission ( ) Unable to be clinically determined Thank you Mariama RIVERA
== END 2024-05-07 15:41 | disposition home or self-care (01) | DRG 322 ==
LOC: ED 13:54 → 1E 14:53 → OR 14:53 → SUATTDRO 15:09 → 1E 15:09 → 2E 05-06 20:33